=== PATIENT | male | born 1980 | race African-American/Black ===

== ENCOUNTER 2021-06-17 14:44 | Emergency (ER) | payer MEDICARE, MEDICAID, SELFPAY ==
--- NOTE | 2021-06-17 15:10 | PC.NURSE ---
pt presents to triage with list of xray and labs that dr. kwok requests including hemoglobin a1c and cholesterol. informed pt that we can work him up for his abd pain but that we cant draw those tests since he has not been npo and tests would be inaccurate. pt states he only had abd pain when pushed on it. pt contacted pmd back.
== END 2021-06-18 00:47 | disposition left against medical advice (07) ==
PROVIDERS: PCP Emergency Medicine
DX: Z53.21 Procedure and treatment not carried out due to patient leaving prior to being seen by health care provider (principal)
CPT/HCPCS: 99199

== ENCOUNTER 2021-06-18 11:57 | Outpatient (CLI) | payer MEDICARE, MEDICAID, SELFPAY ==
--- NOTE | ~2021-06-18 | XR_ITS ---
EXAMINATION: XR lumbar spine 2-3V EXAM DATE: 06/18/2021 12:38 INDICATION: Low back pain. No known recent injury. TECHNIQUE: Lumber spine frontal, lateral, lateral L5-S1 projections for interpretation. There is no prior study for comparison. FINDINGS: Mild lumbar facet arthropathy. The vertebral bodies are aligned in the AP dimension. Verteb ral body and disc heights are well-maintained. Small lower thoracic endplate osteophytes. Sacrum, sac roiliac joints, sacral arcuate lines are intact. Paraspinal soft tissue is unremarkable. Calcificatio ns in the pelvis are believed to be phleboliths. IMPRESSION: Mild lumbar facet arthropathy. Reviewed, dictated and finalized at location A. [facility]
[2021-06-18 13:35] LABS: Cholesterol 172 mg/dL (0-200); HDL Direct 38 mg/dL; Triglycerides 155 mg/dL (<150)
[2021-06-18 13:46] LABS: LDL Cholesterol Direct 100 mg/dL
[2021-06-18 14:22] LABS: Add Urine Microscopic? NO; Appearance Urine Clear (Clear); Bilirubin Urine Negative (Negative); Blood Urine Negative (Negative); Color Urine Straw (Yellow); Glucose Urine UA Negative (Negative); Ketones Urine Negative (Negative); Leukocyte Esterase Ur Negative LEU/UL (NEGATIVE); Nitrate Urine Negative (Negative); Protein Urine Negative (Negative); Specific Grav Ur 1.006 (1.001-1.035); Urobilinogen Urine Negative mg/dL (<2.0)
[2021-06-18 14:33] LABS: Free T4 Free Thyroxine 1.25 ng/mL (0.78-2.19)
[2021-06-18 14:57] LABS: Creatinine Urine 71.6 mg/dL
[2021-06-18 18:38] LABS: Microalbumin Urine Random < 6.0 mg/L (0-16.7)
[2021-06-18 18:39] LABS: MALB Creatinine Ratio < 8.4 mg/g (0-30)
== END 2021-06-18 11:58 | disposition home or self-care (01) ==
PROVIDERS: PCP Emergency Medicine; Visit Provider Emergency Medicine
DX: M54.50 Low back pain, unspecified (principal); R10.9 Unspecified abdominal pain; I10 Essential (primary) hypertension; M12.88 Other specific arthropathies, not elsewhere classified, other specified site
CPT/HCPCS: 36415; 72100; 80061; 81003; 82043; 84439; 84443

== ENCOUNTER → 2021-06-22 03:51 | Outpatient (CLI) | payer MEDICARE, MEDICAID, SELFPAY ==
[2021-06-22 20:23] LABS: SARS-CoV-2 RNA PCR Negative
== END ==
PROVIDERS: PCP Emergency Medicine; Visit Provider Emergency Medicine
DX: Z20.822 Contact with and (suspected) exposure to COVID-19 (principal)
CPT/HCPCS: C9803; U0003; U0005

== ENCOUNTER 2021-07-02 12:45 | Outpatient (CLI) | payer MEDICARE, MEDICAID, SELFPAY ==
--- NOTE | ~2021-07-02 | XR_ITS ---
XR chest 2V DATE: 07/02/2021 13:11 INDICATION: Covid pneumonia TECHNIQUE: PA and lateral views COMPARISON: None FINDINGS: Normal heart size. No hilar or mediastinal enlargement. No pulmonary infiltrate or consolid ation, pleural effusion or pulmonary vascular congestion or pneumothorax is detected. IMPRESSION: No active cardiopulmonary disease Reviewed, dictated and finalized at location A. [facility] [employer]
== END 2021-07-02 12:46 | disposition home or self-care (01) ==
PROVIDERS: PCP Emergency Medicine; Visit Provider Emergency Medicine
DX: U07.1 COVID-19 (principal); J12.82 Pneumonia due to coronavirus disease 2019
CPT/HCPCS: 71046

== ENCOUNTER 2025-01-15 12:57 | Emergency (ER) | payer MEDICARE, MEDICAID, SELFPAY ==
--- OUTSIDE RECORDS SUMMARY | 2025-01-15 13:05 | XMS_ITS | Encounter Summary ---
Author Organization [facility] Address [address] [place] [address] Care Team Providers Care Supervisor Shearing Name Role Phone , Generic Corneilo NASH Primary Care Provider Unavailable Braxton Klein MD Primary Care Provider [phone] Joe Hunter MD Unavailable Shreya Montanez MD Primary Care Provider [phone] None, Provider Primary Care Provider Unavaila ble Non-Staff, Provider Primary Care Provider Unavai lable None, Provider Primary Care Provider Unavaila ble Encounter Details Date Type Department Care Team (Latest Contact Info) Description 04/18/2018 Abstract [facility] , Generic MD Cornelio Social History Tobacco Use Types Packs/Day Years Used Date Smoking Tobacco: Never Smokeless Tobacco: Never Alcohol Use Standard Drinks/Week Comments No 0 (1 standard drink = 0.6 oz pur e alcohol) Sex and Gender Information Value Date Recorded Sex Assigned at Male 07/09/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 Legal Sex Male 10:18 AM 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 Gender Identity Not on file Sexual Orientation Not on file documented as of this encounter Plan of Treatment Not on file documented as of this encounter Visit Diagnoses Not on filedocumented in this encounter Additional Health Concerns Infection Onset Date Last Indicated Resolved Time COVID-19 Rule Out 02/04/2020 02/04/2020 02/05/2020 11:26 PM CDT COVID-19 Rule Out 09/02/2020 09/02/2020 09/05/2020 2:15 PM CDT COVID-19 Rule Out 05/28/2021 05/28/2021 05/29/2021 12:38 PM 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 COVID-19 Rule Out 04/22/2022 04/22/2022 04/22/2022 2:13 PM 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 COVID-19 Confirmed 04/22/2022 04/22/2022 12:32 AM 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 COVID-19 Rule Out 02/10/2024 02/10/2024 02/10/2024 7:07 PM CDT COVID-19 Confirmed 02/10/2024 02/10/2024 12:32 AM CDT COVID-19 Rule Out 07/09/2024 07/09/2024 07/09/2024 7:37 PM 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 documented as of this encounter Care Teams Supervisor Shearing Relationship Specialty Start Date End Date Saurabh Nash MD PCP - General FAMILY PRACTICE 09/23/17 06/12/18 Braxton Klein MD [address] [facility] [address] [place] [address] PCP - General FAMILY PRACTICE 06/13/18 03/14/21 Shreya Montanez MD [facility]. [facility] [address] [place] [address] PCP - General FAMILY PRACTICE 03/15/21 03/06/22 None, ProviderMD PCP - General 03/07/22 09/19/24 Non-Staff, Provider PCP - General UNKNOWN PHYSICIAN SPECIALTY 09/20/24 11/17/24 None, Provider, PCP - General UNKNOWN PHYSICIAN SPECIALTY 11/18/24 Joe Hunter MD [facility]. [facility] [address] [place] [address] [employer] INTERVENTIONAL CARDIOLOGY 07/24/18 documented as of this encounter
--- OUTSIDE RECORDS SUMMARY | 2025-01-15 13:05 | XMS_ITS | Encounter Summary ---
Author Organization [facility] Address [address] [place] [address] Care Team Providers Care Operations Recruiter Name Role Phone Momo Hameed MD Primary Care Provider [phone] Reason for Referral * Consultation (Routine) - Pending Review Specialty Diagnoses / Procedures Referred By Pete grande Referred To Contact General Surgery Diagnoses Calculus of gallbladder without cholecystitis without obstruction Biliary colic Clara Pelletier PA [address] [place] [id number] Phone: tel: fax: Tyler Diehl MD [facility] [address] [address] Phone: tel: fax: Referral ID Status Reason Start Date Expiration Date Visits Requested Visits Authorized [id number] Pending Review Specialty Services Required 01/13/2025 02/12/2026 1 1 Question Answer Please select the performing region: External Order [171] To provider: TYLER DIEHL [[id number]] # of visits: 1 Reason for Visit * Reason Comments Hiccups Abdominal Pain Encounter Details Date Type Department Care Team ([facility] st Contact Info) Description 01/13/2025 7:36 PM CDT - 01/13/2025 8:57 PM CDT Emergency [facility] Emergency Department [address] [place], [place] [address] Hiccups (Primary Dx); Calculus of gallbladder without cholecystitis without obstruction; Biliary colic Discharge Disposition: Discharge to home or self care Social History Tobacco Use Types Packs/Day Years Used Date Smoking Tobacco: Never [facility] Utilities Answer Date Recorded In the past 12 months has th e electric, gas, oil, or water company threatened to shut off services in your home? No 10/11/2024 Social Connection and Isolat ion Panel [NHANES] Answer Date Recorded In a typical week, how many times do you talk on the phone with family, friends, or neighbors? More than three times a week 10/11/2024 How often do you get togethe r with friends or relatives? More than three times a week 10/11/2024 How often do you attend chur ch or pentecostal services? Never 10/11/2024 Do you belong to any clubs o r organizations such as anabaptist groups, unions, fraternal or athletic groups, or school groups? No 10/11/2024 How often do you attend meet ings of the clubs or organizations you belong to? Never 10/11/2024 Are you , , di vorced, , never , or living with a partner? Never 10/11/2024 AUDIT-C Answer Date Recorded Q1: How often do you have a drink containing alc ohol? Monthly or less 12/04/2024 Q2: How many drinks containi ng alcohol do you have on a typical day when you are drinking? 1 or 2 12/04/2024 Q3: How often do you have si x or more drinks on one occasion? Never 12/04/2024 Overall Financial Resource Strain (CARDIA) Answe r Date Recorded How hard is it for you to pa y for the very basics like food, housing, medical care, and heating? Not very hard 10/11/2024 Hunger Vital Sign Answer Date Recorded Within the past 12 months, y ou worried that your food would run out before you got the money to buy more. Never true 10/12/19 25 Within the past 12 months, t he food you bought just didn't last and you didn't have money to get more. Never true 10/11/2024 PRAPARE - Transportation Answer Date Re corded In the past 12 months, has l ack of transportation kept you from medical appointments or from getting medications? No 06/2024 In the past 12 months, has l ack of transportation kept you from meetings, work, or from getting things needed for daily living? No 10/11/2024 Housing Stability Vital Sign Answer Mikhail e Recorded In the last 12 months, was t here a time when you were not able to pay the mortgage or rent on time? No 10/11/2024 In the past 12 months, how m any times have you moved where you were living? 0 10/11/2024 At any time in the past 12 m [facility], were you homeless or living in a group home (including now)? No 10/11/2024 Personal Safety Answer Date Recorded Have you ever been in or are you currently in a harmful physical or emotional relationship or is someone making you feel afraid or unsafe? 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 Gender Identity Not on file Sexual Orientation Not on file documented as of this encounter Last Filed Vital Signs Vital Sign Reading Time Taken Comments Blood Pressure 160/90 01/13/2025 8:55 PM CDT Pulse 110 01/13/2025 8:55 PM CDT Temperature 37.1 C (98.7 F) 01/13/2025 7:40 PM CDT Respiratory Rate 20 01/13/2025 8:55 PM CDT Oxygen Saturation 97% 01/13/2025 8:55 PM CDT Inhaled Oxygen Concentration - - Weight 116.7 kg (257 lb 4.4 oz) 01/13/2025 3:27 PM CDT Height - - Body Mass Index 39.12 12/14/2024 4:54 PM CDT documented in this encounter Discharge Instructions * Discharge Instructions* Clara Pelletier PA - 01/13/2025 8:03 PM CDT Thank you for allowing us to take care of you at [facility]. Please follow up with your primary care physician or specialist, as soon as possible, and ideally within 7 days. Please take any new medications as prescribed. Please return to the emergency department for worsening of your symptoms or any new problems which may arise. It is mandatory that you follow up, as recommended, with a primary care physician or specialist, per your discharge paperwork.You have received emergency care only at your visit today, an this is nota substitute for ongoing care, further evaluation, or treatment. Therefore, follow-up as directed is not optional, but mandatory. This ensures that any incidental abnormal radiographic and laboratoryfindings are evaluated appropriately. Return immediately for any new symptoms, worsening of symptoms, or persistent symptoms. We are open03/01 and will take care of you. * Attachments The following attachments cannot be sent through Care Everywhere. * Biliary Colic (AfterCare(R) Instructions(ER/ED)) ([place]) * Gallstones (AfterCare(R) Instructions(ER/ED)) ([place]) documented in this encounter Medications at Time of Discharge acetaminophen (TYLENOL) 500 mg tablet Take 1-2 tablets (500-1,000 mg total) by mouth every 6 (six) hours as needed for pain (1 tablet for mild to moderate pain. 2 tablets for severe pain) 30 tablet 06/06/2021 al & mag hydroxide with simethicone-diph enhydramine-lido moira (MAGIC MOUTHWASH) suspension 1-1-1 Swish and swallow 10 mL every 4 (four) hours as needed (hiccups) 200 mL 01/13/2025 aspirin 81 mg enteric coated tabletIndication s:cardiovascular disease Take 1 tablet (81 mg total) by mouth daily 30 tablet 11 12/06/2024 12/06/2025 famotidine (PEPCID) 20 mg tablet Take 1 tablet (20 mg total) by mouth daily 30 tablet 1 12/06/2024 ketorolac (TORADOL) 10 mg tabletIndication s:biliary colic Take 1 tablet (10 mg total) by mouth every 6 (six) hours as needed for pain 20 tablet 01/13/2025 LORazepam (ATIVAN) 0.5 mg tablet Take 1 tablet (0.5 mg total) by mouth 2 (two) times a day as needed for anxiety 20 tablet 11/21/2024 metoclopramide (Reglan) 10 mg tabletIndication s:hiccups, biliary colic nausea Take 1 tablet (10 mg total) by mouth 4 (four) times a day for 14 doses 14 tablet 01/13/2025 01/17/2025 metoprolol XL (TOPROL-XL) 50 mg extended release tablet Take 1 tablet (50 mg total) by mouth daily 30 tablet 12/06/2024 12/06/[address] (PROTONIX) 40 mg EC tablet Take 1 tablet (40 mg total) by mouth daily 30 tablet 11 12/04/2024 12/04/2025 rosuvastatin (CRESTOR) 10 mg tablet Take 1 tablet (10 mg total) by mouth daily 90 tablet 3 12/31/2024 documented as of this encounter Ordered Prescriptions Prescription Sig Dispense Quantity Refills Last Filled Start Date End Date al & mag hydroxide with simethicone-diphen hydramine-lidocain e (MAGIC MOUTHWASH) suspension 1-1-1 Swish and swallow 10 mL every 4 (four) hours as needed (hiccups) 200 mL 01/13/2025 metoclopramide (Reglan) 10 mg tabletIndications: hiccups, biliary colic nausea Take 1 tablet (10 mg total) by mouth 4 (four) times a day for 14 doses 14 tablet 01/13/2025 ketorolac (TORADOL) 10 mg tabletIndications: biliary colic Take 1 tablet (10 mg total) by mouth every 6 (six) hours as needed for pain 20 tablet 01/13/2025 documented in this encounter Discharge Disposition Disposition Code Departure Means Destination Comment s Discharge to home or self care documented in this encounter ED Notes * Clara Pelletier PA - 01/13/2025 8:05 PM CDT CHIEF COMPLAINT: Chief Complaint Patient presents with Hiccups Abdominal Pain HPI 8:06 PM Selene Forman is a 45 y.o. male presenting to the ED c/o hiccups x 2 months, improved with magic mouthwash. Pt would like a refill of this mouthwash. Pt states also having RUQ abdominal pain x 2 days, worse after eating fatty and greasy foods. Pt states no nausea, vomiting, fever, chills. 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; Service: Cardiovascular; Laterality: N/A; UPPER GASTROINTESTINAL ENDOSCOPY X 2 FAMILY HISTORY Family History Problem Relation Age of Onset Heart disease Brother Colon polyps Maternal Grandfather Stomach cancer Maternal Grandfather MEDICATIONS GIVEN IN THE ED Medications metoclopramide (REGLAN) 5 mg/mL injection 10 mg (has no administration in time range) ketorolac (TORADOL) 30 mg/mL injection 30 mg (has no administration in time range) ioversoL (OPTIRAY 350) syringe 100 mL (100 mL intravenous Contrast Given 01/13/25 1887) CURRENT HOME MEDICATIONS Current Facility-Administered Medications: ketorolac (TORADOL) 30 mg/mL injection 30 mg, 30 mg, intravenous, Once, Clara Pelletier PA metoclopramide (REGLAN) 5 mg/mL injection 10 mg, 10 mg, intravenous, Once, Clara Pelletier PA Current Outpatient Medications: acetaminophen (TYLENOL) 500 mg tablet, Take 1-2 tablets (500-1,000 mg total) by mouth every 6 (six)hours as needed for pain (1 tablet for mild to moderate pain. 2 tablets for severe pain), Disp: 30 tablet, Rfl: 0 al & mag hydroxide with ozoymzwbndx-zwluvpkcqulgcrs-goynzuhay (MAGIC MOUTHWASH) suspension 1-1-1, Swish and swallow 10 mL every 4 (four) hours as needed (hiccups), Disp: 200 mL, Rfl: 0 aspirin 81 mg enteric coated tablet, Take 1 tablet (81 mg total) by mouth daily, Disp: 30 tablet, Rfl: 11 famotidine (PEPCID) 20 mg tablet, Take 1 tablet (20 mg total) by mouth daily, Disp: 30 tablet, Rfl:1 ketorolac (TORADOL) 10 mg tablet, Take 1 tablet (10 mg total) by mouth every 6 (six) hours as needed for pain, Disp: 20 tablet, Rfl: 0 LORazepam (ATIVAN) 0.5 mg tablet, Take 1 tablet (0.5 mg total) by mouth 2 (two) times a day as needed for anxiety, Disp: 20 tablet, Rfl: 0 metoclopramide (Reglan) 10 mg tablet, Take 1 tablet (10 mg total) by mouth 4 (four) times a day for14 doses, Disp: 14 tablet, Rfl: 0 metoprolol XL (TOPROL-XL) 50 mg extended release tablet, Take 1 tablet (50 mg total) by mouth daily, Disp: 30 tablet, Rfl: [address] (PROTONIX) 40 mg EC tablet, Take 1 tablet (40 mg total) by mouth daily, Disp: 30 tablet, Rfl: 11 rosuvastatin (CRESTOR) 10 mg tablet, Take 1 tablet (10 mg total) by mouth daily, Disp: 90 tablet, Rfl: 3 ALLERGIES Allergies Allergen Reactions Penicillins Anaphylaxis and Shortness of breath difficulty breathing Clindamycin Rash Omeprazole Nausea only Skin peels SOCIAL HISTORY Social History Tobacco Use Smoking status: Never Smokeless tobacco: Not on file Substance and Sexual Activity Drug use: Not on file Sexual activity: Not on file Alcohol Use: Not At Risk (12/04/2024) AUDIT-C Frequency of Alcohol Consumption: Monthly or less Average Number of Drinks: 1 or 2 Frequency of Binge Drinking: Never PHYSICAL EXAM TRIAGE VITAL SIGNS: ED Triage Vitals Temp Pulse Resp BP SpO2 01/13/25 1527 01/13/25 1527 01/13/25 1527 01/13/25 1527 01/13/25 1527 36.4 ??C (97.5 ??F) 99 19 138/88 98 % Temp src Heart Rate Source Patient Position BP Location FiO2 (%) 01/13/25 1527 01/13/25 1940 01/13/25 19401/13/251939 -- Temporal Pulse Oximetry HOB 30 degrees Left arm Height Height Method Weight Weight Method -- -- 01/13/25 1527 01/13/25 1527 116.7 kg (257 lb 4.4 oz) Standing scale Physical Exam Vitals and nursing note reviewed. Constitutional: Appearance: He is well-developed. He is obese. Comments: Pleasant male, no acute distress HENT: Head: Normocephalic and atraumatic. Eyes: Conjunctiva/sclera: Conjunctivae normal. Cardiovascular: Rate and Rhythm: Normal rate and regular rhythm. Heart sounds: Normal heart sounds. No murmur heard. Pulmonary: Effort: Pulmonary effort is normal. No respiratory distress. Breath sounds: Normal breath sounds. Abdominal: General: Abdomen is protuberant. Palpations: Abdomen is soft. Tenderness: There is no abdominal tenderness. Musculoskeletal: Cervical back: Neck supple. Skin: General: Skin is warm and dry. Neurological: Mental Status: He is alert and oriented to person, place, and time. LABS Labs Reviewed CBC WITH AUTO DIFFERENTIAL - Abnormal Result Value WBC 6.18 Hgb 15.5 Hct 46.3 Plt 272 MPV 8.3 (*) RBC 5.38 MCV 86.1 MCH 28.8 MCHC 33.5 RDW CV 12.7 RDW SD 39.2 NRBC abs 0.00 URINALYSIS AND REFLEX TO MICROSCOPIC AND CULTURE Color, ur Yellow Clarity, ur Clear Specific gravity, ur 1.019 pH, urine 6.0 Protein, ur ql Negative Glucose, ur ql Negative Ketones, ur Negative Bilirubin, ur Negative Blood, ur Negative Urobilinogen, ur <2.0 Nitrite, ur Negative Leukocyte esterase, ur Negative UA reflex comment Value: Reflex conditions for microscopic UA and culture not met. COMPREHENSIVE METABOLIC PANEL Sodium 141 Potassium, pl 4.0 Chloride 104 CO2 24 Anion gap 13 BUN 12 Creatinine 0.90 Glucose 101 Calcium 9.5 Bilirubin, total 0.7 Protein, pl 7.7 Albumin 4.2 Alk phos 121 ALT 29 AST 22 LIPASE Lipase 33 TROPONIN T HIGH-SENSITIVITY SERIES (BASELINE, 2HR, 4HR, 6HR) Trop T hs 10 DIFFERENTIAL AUTO Neutrophil abs 4.10 Imm gran abs 0.02 Lymphocyte abs 1.31 Monocyte abs 0.61 Eosinophil abs 0.12 Basophil abs 0.02 Neutrophil pct 66.4 Imm gran pct 0.3 Lymphocyte pct 21.2 Monocyte pct 9.9 Eosinophil pct 1.9 Basophil pct 0.3 TROPONIN T HIGH-SENSITIVITY 2-HOUR Trop T hs 10 Trop T hs delta 0 Trop T hs interp Insignificant EGFR eGFR >90 RADIOLOGY Impression: 1. No acute intra-abdominal process. 2. Cholelithiasis, new from previous. Gallbladder sonogram may be considered. No findings to indicate acute cholecystitis. Interpreted by radiologist and reviewed by me EKG Pending ED COURSE/MEDICAL DECISION MAKING Differential diagnosis included but not limited to Appendicitis, surgical biliary disease, pancreatitis, SBO, genital torsion, kidney stone, uti. Doubt atypical ACS. Patient's medical records were reviewed. Pt with gallstones. Other labs unremarkable. CT indicative of biliary colic. Will start on toradol,refill reglan and magic mouthwash. Stable for dc home. Will refer to general surgery. Advised low fat diet and avoid triggers. Procedures FINAL IMPRESSION Hiccups Calculus of gallbladder without cholecystitis without obstruction Biliary colic DISPOSITION: Home All findings were discussed with patient. Pt agreeable with plan. Non toxic appearing, vitals stable. Patient stable for discharge home. Given return to ER precautions Close outpatient follow-up with a low threshold to return has been mandated, concerning symptoms have been emphasized in detail, and this patient expresses understanding PATIENT INSTRUCTED TO FOLLOW UP Tyler Diehl MD [address] [place] [address] Call in 1 week DISCHARGE MEDICATIONS Your medication list START taking these medications Instructions Last Dose Given Next Dose Due ketorolac 10 mg tablet Commonly known as: TORADOL Take 1 tablet (10 mg total) by mouth every 6 (six) hours as needed for pain CHANGE how you take these medications Instructions Last Dose Given Next Dose Due al & mag hydroxide with mrghdzetnrm-hhunvzmaokwwzfz-kxofraufs (MAGIC MOUTHWASH) suspension 1-1-1 What changed: when to take this reasons to take this additional instructions Swish and swallow 10 mL every 4 (four) hours as needed (hiccups) metoclopramide 10 mg tablet Commonly known as: Reglan What changed: when to take this Take 1 tablet (10 mg total) by mouth 4 (four) times a day for 14 doses ASK your doctor about these medications Instructions Last Dose Given Next Dose Due acetaminophen 500 mg tablet Commonly known as: TYLENOL Take 1-2 tablets (500-1,000 mg total) by mouth every 6 (six) hours as needed for pain (1 tablet formild to moderate pain. 2 tablets for severe pain) aspirin 81 mg enteric coated tablet Take 1 tablet (81 mg total) by mouth daily famotidine 20 mg tablet Commonly known as: PEPCID Take 1 tablet (20 mg total) by mouth daily LORazepam 0.5 mg tablet Commonly known as: ATIVAN Take 1 tablet (0.5 mg total) by mouth 2 (two) times a day as needed for anxiety metoprolol XL 50 mg extended release tablet Commonly known as: TOPROL-XL Take 1 tablet (50 mg total) by mouth daily pantoprazole DR 40 mg EC tablet Commonly known as: PROTONIX Take 1 tablet (40 mg total) by mouth daily rosuvastatin 10 mg tablet Commonly known as: CRESTOR Take 1 tablet (10 mg total) by mouth daily Where to Get Your Medications These medications were sent to [id number] [id number] Hours: 24-hours al & mag hydroxide with qtbvnqqgofs-dxsgjxpdwetswip-cyxamyrkn (MAGIC MOUTHWASH) suspension 1-1-1 ketorolac 10 mg tablet metoclopramide 10 mg tablet This examination was transcribed using the [employer] voice recognition system without human overlock operator. In an effort to expedite patient care, this report has not been adjusted for typographical, grammatical, and syntax by a trained coroner/medical examiner. Clara Pelletier PA 01/13/252005 * Nanci Gonzalez RN - 01/13/2025 3:28 PM CDT Pt reports has had hiccups for 2 months, started having R upper quadrant abd pain and some neck pain 2 days ago. documented in this encounter Plan of Treatment Scheduled Referrals Name Type Priority Associated Diagnoses Orde r Schedule Ambulatory referral to General Surgery Outpatient Referral Routine Calculus of gallbladder without cholecystitis without obstruction Biliary colic 1 Occurrences starting 01/13/2025 until 01/13/2026 documented as of this encounter Procedures Procedure Name Priority Date/Time Associated Diagnosis Comments TROPONIN T HIGH-SENSITIVITY 2-HOUR Timed 01/13/2025 5:[address] ABDOMEN PELVIS W CONTRAST ED 01/13/2025 4:37 PM CDT URINALYSIS AND REFLEX TO MICROSCOPIC AND CULTURE STAT 01/13/2025 4:06 PM CDT TROPONIN T HIGH-SENSITIVITY SERIES (BASELINE, 2HR, 4HR, 6HR) STAT 01/13/2025 3:34 PM CDT EGFR STAT 01/13/2025 3:34 PM CDT DIFFERENTIAL AUTO STAT 01/13/2025 3:3 4 PM CDT CBC WITH AUTO DIFFERENTIAL STAT 01/13/2025 3:34 PM CDT LIPASE STAT 01/13/2025 3:34 PM CDT COMPREHENSIVE METABOLIC PANEL STAT 01/13/2025 3:34 PM CDT documented in this encounter Results * Troponin T high-sensitivity 2-hour (01/13/2025 5:45 PM CDT) Trop T hs 10 <=22 ng/L Comment: Interpretive Data For further hscTnT resources including the diagnostic algorithm and an aid in interpretation, copy and paste this link: [email or web address].testcatalog.org/show/hsTrop Current Interpretive Data last revised 2020. Testing performed by: [address] [address] Trop T hs delta 0 ng/L [facility] Comment:Testing performed by : [address] [address] Trop T hs interp Insignificant [facility] Comment:Testing performed by : [place] [address], [place]., [address] Blood 01/13/2025 5:45 PM CDT 01/13/2025 5:47 PM CDT us Clara VASQUEZ LAB BLOOD ORDERABLES Final R esult [facility] [address] [facility] Department [place] [address] * CT Abdomen Pelvis W Contrast (01/13/2025 4:37 PM CDT) Anatomical Region Laterality Modality Body N/A Computed Tomogra phy 01/13/2025 5:09 PM CDT Narrative 01/13/2025 5:24 PM CDT EXAM DESCRIPTION: CT ABDOMEN PELVIS W CONTRAST REASON FOR STUDY: Abdominal pain, acute, nonlocalized has had hiccups for 2 months, started having R upper quadrant abd pain and some neck pain 2 days ago. TECHNIQUE: CT scan of the abdomen and pelvis performed with intravenous and without oral contrast using helical scanning technique with dynamic intravenous contrast injection. Reconstructed coronal and sagittal MPR images reviewed. All images stored on PACS. Automated exposure control was used as a dose optimization technique for this examination. CONTRAST TYPE/DOSE: 100mL of IOVERSOL 350 MG IODINE/ML INTRAVENOUS SYRINGE injected via intravenous COMPARISON: Comparison 11/19/2024. FINDINGS: LOWER CHEST: No significant pulmonary abnormalities. No effusion. LIVER: Normal size. Scattered tiny hypodensities, stable and statistically tiny cysts. No identified cystic or solid masses. GALLBLADDER: There are small gallstones in the gallbladder neck. No wall thickening or pericholecystic fluid. BILE DUCTS: No intrahepatic or extrahepatic ductal dilatation. SPLEEN: Normal size. No focal lesions. PANCREAS: No identified cystic or solid masses. No significant calcifications. No adjacent inflammation or peripancreatic fluid collections. Pancreatic duct not dilated. ADRENALS: Normal. KIDNEYS/URINARY TRACT: No identified significant cystic or solid masses. No visualized stones. No hydronephrosis or hydroureter. Symmetric enhancement. Urinary bladder is unremarkable. GI: No dilated bowel loops. No obvious wall thickening. Normal appendix. No significant diverticular disease. PERITONEUM: No ascites or free air. RETROPERITONEUM: No mass or adenopathy. REPRODUCTIVE: No significant abnormality. VASCULATURE: No abdominal aortic aneurysm. MUSCULOSKELETAL: No significant abnormality. OTHER: No other abnormality. IMPRESSION: 1. No acute intra-abdominal process. 2. Cholelithiasis, new from previous. Gallbladder sonogram may be considered. No findings to indicate acute cholecystitis. THIS IS AN ELECTRONICALLY VERIFIED FINAL REPORT 01/13/2025 5:24 PM - Electronically signed by Nasir Duncan M.D. LC: FARSHAD Report ID: [id number] Reading Location: [id number] Procedure Note Deisy Duncan MD - 01/13/2025 EXAM DESCRIPTION: CT ABDOMEN PELVIS W CONTRAST REASON FOR STUDY: Abdominal pain, acute, nonlocalized has had hiccups for 2 months, started having R upper quadrant abd pain and some neck pain 2 days ago. TECHNIQUE: CT scan of the abdomen and pelvis performed with intravenousand without oral contrast using helical scanning technique with dynamic intravenous contrast injection. Reconstructed coronal and sagittal MPRimages reviewed. All images stored on PACS. Automated exposure control was usedas a dose optimization technique for this examination. CONTRAST TYPE/DOSE: 100mL of IOVERSOL 350 MG IODINE/ML INTRAVENOUSSYRINGE injected via intravenous COMPARISON: Comparison 11/19/2024. FINDINGS: LOWER CHEST: No significant pulmonary abnormalities. Noeffusion. LIVER: Normal size. Scattered tiny hypodensities, stable andstatistically tiny cysts. No identified cystic or solid masses. GALLBLADDER: There are small gallstones in the gallbladder neck. Nowall thickening or pericholecystic fluid. BILE DUCTS: No intrahepatic or extrahepatic ductal dilatation. SPLEEN: Normal size. No focal lesions. PANCREAS: No identified cystic or solid masses. No significant calcifications. No adjacent inflammation or peripancreatic fluidcollections. Pancreatic duct not dilated. ADRENALS: Normal. KIDNEYS/URINARY TRACT: No identified significant cystic or solid masses.No visualized stones. No hydronephrosis or hydroureter. Symmetricenhancement. Urinary bladder is unremarkable. GI: No dilated bowel loops. No obvious wall thickening. Normalappendix. No significant diverticular disease. PERITONEUM: No ascites or free air. RETROPERITONEUM: No mass or adenopathy. REPRODUCTIVE: No significant abnormality. VASCULATURE: No abdominal aortic aneurysm. MUSCULOSKELETAL: No significant abnormality. OTHER: No other abnormality. IMPRESSION: 1. No acute intra-abdominal process. 2. Cholelithiasis, new from previous. Gallbladder sonogram may be considered. No findings to indicate acute cholecystitis. THIS IS AN ELECTRONICALLY VERIFIED FINAL REPORT 01/13/2025 5:24 PM - Electronically signed by Nasir Duncan M.D. LC: FARSHAD Report ID: [id number] Reading Location: [place] [address] PROCEDURES Final Resu lt * Urinalysis reflex to microscopic and culture Urine (01/13/2025 4:06 PM CDT) Color, ur Yellow Yellow Comment:Testing performed by : [address] [address] Clarity, ur Clear Clear [facility] Comment:Testing performed by : [address] [address] Specific gravity, ur 1.019 1.003 - 1.030 [facility]RA Comment:Testing performed by : [address] [address] pH, urine 6.0 [facility]RA Comment: Interpretive Data U rine pH is affected by diet, medications, systemic acid-base disturbances, and renal tubular function. pH may affect urinary stone formation. For example, urine pH below 6.0 may help reduce the tendency for calcium phosphate stones and pH greater than 6.0 may reduce the tendency for uric acid stone formation. Source: [employer] Current Interpretive Data was last revised on 2017 Testing performed by: [address] [address] Protein, ur ql Negative Negative [facility]RA Comment:Testing performed by : [address] [address] Glucose, ur ql Negative Negative [facility] MC Comment:Testing performed by : [facility], [address] [place] [address], [place]., [address] Ketones, ur Negative Negative [facility] MC Comment:Testing performed by : [address], [place]., [address] Bilirubin, ur Negative Negative [facility] MC Comment:Testing performed by : [address], [place]., [address] Blood, ur Negative Negative [facility] MC Comment:Testing performed by : [address], [place]., [address] Urobilinogen, ur <2.0 <2.0 mg/dL [facility] MC Comment:Testing performed by : [address], [place]., [address] Nitrite, ur Negative Negative [facility]ERRA Comment:Testing performed by : [address], [place]., [address] Leukocyte esterase, ur Negative Negative [facility]RA Comment:Testing performed by : [address], [place]., [address] UA reflex comment Reflex conditions for microscopic UA and culture not met. [facility]RA Comment:Testing performed by : [address], [place]., [address] Urine 01/13/2025 4:06 PM CDT 01/13/2025 4:08 PM CDT us Clara VASQUEZ LAB MICROBIOLOGY - GENERAL O RDERABLES Final Result [facility] MC [address] [facility] Department of Laboratories [place], [place] [id number] * eGFR (01/13/2025 3:34 PM CDT) eGFR >90 >=60 mL/min/1. 73 m2 Comment: Interpretive Data Reference Interval Normal >/= 90 mL/min/1.73m2 Mildly decreased* 60 - 89 mL/min/1.73m2 Mildly to moderately decreased 45 - 59 mL/min/1.73m2 Moderately to severely decreased 30 - 44 mL/min/1.73m2 Severely decreased 15 - 29 mL/min/1.73m2 Kidney Failure < 15 mL/min/1.73m2 *Relative to young adult level Estimated glomerular filtration rate is determined by the 2020 CKD-EPI equation recommended by the National Kid[employer] (A Unifying Approach to GFR Estimation: Recommendations of the NKF-ASK Task Force on Reassessing the Inclusion of Race in Diagnosing Kidney Disease, JASN 2020). The CKD-EPI equation should not be used for patients with unstable renal function and has not been validated in children and those over 70. Current interpretive data was last reviewed 2021. Testing performed by: [address] [address] Blood 01/13/2025 3:34 PM CDT 01/13/2025 3:39 PM CDT us Clara VASQUEZ LAB BLOOD ORDERABLES Final R esult [facility] Department [place] [address] * Differential, auto (01/13/2025 3:34 PM CDT) Neutrophil abs 4.10 1.50 - 6.50 K/cumm Comment:Testing performed by : [address] [address] Imm gran abs 0.02 0.00 - 0.10 K/cumm CIERRA Comment:Testing performed by : [address] [address] Lymphocyte abs 1.31 0.80 - 3.30 K/cumm [facility]ERRA Comment:Testing performed by : [address] [address] Monocyte abs 0.61 0.20 - 0.80 K/cumm [facility]ERRA Comment:Testing performed by : [address] [address] Eosinophil abs 0.12 0.00 - 0.50 K/cumm CIERRA Comment:Testing performed by : [address] [address] Basophil abs 0.02 0.00 - 0.10 K/cumm [facility]ERRA Comment:Testing performed by : [address] [address] Neutrophil pct 66.4 % [facility]ERRA Comment: Interpretive Data Percent cell count reference ranges are not reported, since discordance with absolute values may lead to misinterpretation of CBC data. Current Interpretive Data was last revised on 2017. Testing performed by: [address] [address] Imm gran pct 0.3 % [facility]ERRA Comment: Interpretive Data Percent cell count reference ranges are not reported, since discordance with absolute values may lead to misinterpretation of CBC data. Current Interpretive Data was last revised on 2017. Testing performed by: [address] [address] Lymphocyte pct 21.2 % [facility] Comment: Interpretive Data Percent cell count reference ranges are not reported, since discordance with absolute values may lead to misinterpretation of CBC data. Current Interpretive Data was last revised on 2017. Testing performed by: [address] [address] Monocyte pct 9.9 % [facility] Comment: Interpretive Data Percent cell count reference ranges are not reported, since discordance with absolute values may lead to misinterpretation of CBC data. Current Interpretive Data was last revised on 2017. Testing performed by: [address] [address] Eosinophil pct 1.9 % [facility] Comment: Interpretive Data Percent cell count reference ranges are not reported, since discordance with absolute values may lead to misinterpretation of CBC data. Current Interpretive Data was last revised on 2017. Testing performed by: [address] [address] Basophil pct 0.3 % [facility] Comment: Interpretive Data Percent cell count reference ranges are not reported, since discordance with absolute values may lead to misinterpretation of CBC data. Current Interpretive Data was last revised on 2017. Testing performed by: [address] [address] Blood 01/13/2025 3:34 PM CDT 01/13/2025 3:39 PM CDT Clara VASQUEZ LAB BLOOD ORDERABLES Final R esult Performing Organization Address [facility] Co de Phone Number CIERRA [address] [place] [address] * Troponin T high-sensitivity series (baseline, 2hr, 4hr, 6hr) (01/13/2025 3:34 PM CDT) Trop T hs 10 <=22 ng/L Comment: Interpretive Data For further hscTnT resources including the diagnostic algorithm and an aid in interpretation, copy and paste this link: [email or web address].testcatalog.org/show/[email or web address] Current Interpretive Data last revised 2020. Testing performed by: [address] [address] Blood 01/13/2025 3:34 PM CDT 01/13/2025 3:39 PM CDT Clara VASQUEZ LAB BLOOD ORDERABLES Final R esult Performing Organization Address [facility] Co de Phone Number KEILA[address] [address] * Lipase (01/13/2025 3:34 PM CDT) Pathologist [facility] Lipase 33 10 - 99 Units/L Comment:Testing performed by : [address] [address] Blood Venous blood specimen / Unknown 01/13/2025 3:34 PM CDT 01/13/2025 3:39 PM CDT Clara VASQUEZ LAB BLOOD ORDERABLES Final R esult Performing Organization Address City/[facility]/ZIP Co de Phone Number KEILA[address] [place] [address] * Comprehensive metabolic panel (01/13/2025 3:34 PM CDT) Sodium 141 135 - 145 mmol/L Comment:Testing performed by : [address] [address] Potassium, pl 4.0 3.3 - 4.9 mmol/L CIERRA Comment:Testing performed by : [address], [place]., [address] Chloride 104 97 - 110 mmol/L [facility]ERRA Comment:Testing performed by : [address], [place]., [address] CO2 24 22 - 32 mmol/L [facility]ERRA Comment:Testing performed by : [address], [place]., [address] Anion gap 13 2 - 15 mmol/L [facility]RA Comment:Testing performed by : [address], [place]., [address] BUN 12 6 - 25 mg/dL CIERRA Comment:Testing performed by : [address] [address] Creatinine 0.90 0.80 - 1.30 mg/dL [facility]ERRA Comment:Testing performed by : [address] [address] Glucose 101 70 - 199 mg/dL [facility]ERRA Comment: Interpretive Data Fasting glucose >/= 126 mg/dl is diagnostic for diabetes. Fasting is defined as no caloric intake for at least 8 hours. Fasting glucose between 100 mg/dl to 125 mg/dl is diagnostic of prediabetes. In a patient with classic symptoms of hyperglycemia or hyperglycemic crisis, a random glucose >/= 200 mg/dl is diagnostic for diabetes. In the absence of unequivocal hyperglycemia, results should be confirmed by repeat testing. The classification and Diagnosis of Diabetes Diabetes Care 2021; 46: S19-S40. Current interpretive data was last revised 2022. Testing performed by: [address] [address] Calcium 9.5 8.5 - 10.3 mg/dL [facility]ERRA Comment:Testing performed by : [address] [address] Bilirubin, total 0.7 0.1 - 1.2 mg/dL [facility] MC Comment:Testing performed by : [address] [address] Protein, pl 7.7 6.5 - 8.5 g/dL [facility] MC Comment:Testing performed by : [address], [place]., [address] Albumin 4.2 3.5 - 5.0 g/dL [facility] MC Comment:Testing performed by : [address] [address] Alk phos 121 40 - 130 Units/L CIERRA Comment:Testing performed by : [address], [place]., [address] ALT 29 7 - 55 Units/L [facility]ERRA Comment:Testing performed by : [address] [address] AST 22 10 - 50 Units/L [facility]ERRA Comment:Testing performed by : [address] [address] Blood 01/13/2025 3:34 PM CDT 01/13/2025 3:39 PM CDT us Clara VASQUEZ LAB BLOOD ORDERABLES Final R esult [facility]RA [address] [facility] Department [place] [address] * (ABNORMAL) CBC with auto differential (01/13/2025 3:34 PM CDT) [facility] WBC 6.18 3.80 - 9.90 K/cumm Comment:Testing performed by : [address] [address] Hgb 15.5 13.0 - 17.5 g/dL [facility] MC Comment:Testing performed by : [address] [address] Hct 46.3 38.9 - 50.3 % [facility] MC Comment:Testing performed by : [address] [address] Plt 272 150 - 400 K/cumm [facility] MC Comment:Testing performed by : [address] [address] MPV 8.3(L) 9.1 - 12.3 fL [facility]ERRA Comment:Testing performed by : [address] [address] RBC 5.38 4.30 - 5.80 M/cumm [facility] MC Comment:Testing performed by : [address] [address] MCV 86.1 81.3 - 96.4 fL [facility]ERRA Comment:Testing performed by : [address] [address] MCH 28.8 27.1 - 33.3 pg [facility]RA Comment:Testing performed by : [address] [address] MCHC 33.5 32.3 - 35.7 g/dL CIERRA Comment:Testing performed by : [address] [address] RDW CV 12.7 11.1 - 14.9 % [facility]ERRA Comment:Testing performed by : [address] [address] RDW SD 39.2 35.7 - 48.1 fL [facility]ERRA Comment:Testing performed by : [address] [address] NRBC abs 0.00 0.00 - 0.01 K/cumm CIERRA Comment:Testing performed by : [address] [address] Blood Venous blood specimen / Unknown 01/13/2025 3:34 PM CDT 01/13/2025 3:39 PM CDT us Clara VASQUEZ LAB BLOOD ORDERABLES Final R esult [facility] MC [address] [facility] Department [place] [address] documented in this encounter Visit Diagnoses Diagnosis Hiccups- Primary Calculus of gallbladder without cholecystitis without obstruction Biliary colic Calculus of gallbladder without mention of cholecystitis or obstruction documented in this encounter Administered Medications Inactive Administered Medications - up to 3 most recent administrations Medication Order MAR Action Action Date Dose Rate Site diphenhydrAMINE (BENADRYL) 50 mg/mL injection 25 mg 25 mg, intravenous, Administer over 2 Minutes, Once, On 01/13/25 at 2043, For 1 dose, Indications: allergic reaction, extrapyramidal disease, Nausea and Vomiting, Urticaria, migraineIndications:allergic reaction,extrapyramidal disease,Nausea and Vomiting,Urticaria,migraine Given 01/13/2025 8:43 PM CDT 25 mg ioversoL (OPTIRAY 350) syringe 100 mL 100 mL, intravenous, Once in imaging, contrast, Starting on Tue01/13/25 at 1637, For 1 dose Contrast Given 01/13/2025 4:37 PM CDT 100 mL ketorolac (TORADOL) 30 mg/mL injection 30 mg 30 mg, intravenous, Once, On 01/13/25 at 2002, For 1 dose, For Adult IV push, administer over 15 seconds Given 01/13/2025 8:27 PM CDT 30 mg metoclopramide (REGLAN) 5 mg/mL injection 10 mg 10 mg, intravenous, Once, On 01/13/25 at 2002, For 1 dose Given 01/13/2025 8:28 PM CDT 10 mg documented in this encounter Discontinued Medications Medication Sig Discontinue Reason Start Date End Da te al & mag hydroxide with simethicone-diphenhydr amine-lidocaine (MAGIC MOUTHWASH) suspension 1-1-1 Swish and swallow 10 mL 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 Therapy completed 11/29/2024 01/13/2025 metoclopramide (REGLAN) 10 mg tabletIndications:Hicc ups Take 1 tablet (10 mg total) by mouth every 6 (six) hours Therapy completed 12/14/2024 01/13/2025 documented as of this encounter Active and Recently Administered Medications Times are shown in CDT. Scheduled Medication Order 01/11/2025 01/12/2025 01/13/2025 diphenhydrAMINE (BENADRYL) 50 mg/mL injection 25 mg (COMPLETED) 25 mg, intravenous, Administer over 2 Minutes, Once, On 01/13/25 at 2042, For 1 dose, Indications: allergic reaction, extrapyramidal disease, Nausea and Vomiting, Urticaria, migraine 2042 (Given - Provid er: Ramo Bravo, ANIYAH) ketorolac (TORADOL) 30 mg/mL injection 30 mg (COMPLETED) 30 mg, intravenous, Once, On 01/13/25 at 2002, For 1 dose, For Adult IV push, administer over 15 seconds 2026 (Given - Provid er: Ramo Bravo RN) metoclopramide (REGLAN) 5 mg/mL injection 10 mg (COMPLETED) 10 mg, intravenous, Once, On 01/13/25 at 2002, For 1 dose 2027 (Given - Provid er: Ramo Bravo RN) PRN Medication Order 01/11/2025 01/12/2025 01/13/2025 ioversoL (OPTIRAY 350) syringe 100 mL (COMPLETED) 100 mL, intravenous, Once in imaging, contrast, Starting on 01/13/25 at 1637, For 1 dose 1637 (Contrast Given - Provider: RT Shannon) documented in this encounter Orders EKG Orders Without Results Count Last Ordered D ate First Ordered Date ECG 12-LEAD 1 01/13/2025 IV Count Last Ordered Date First Orde red Date SALINE LOCK IV 1 01/13/2025 documented in this encounter Care Teams Operations Recruiter Relationship Specialty Start Date End Date Momo Hameed MD [address] [address] PCP - General Family Medicine 12/01/24 documented as of this encounter
--- OUTSIDE RECORDS SUMMARY | 2025-01-15 13:05 | XMS_ITS | Clinical Summary ---
Author Organization [facility] Address [address] [place] [address] Care Team Providers Care Scallop Raker Name Role Phone Joe Hunter MD Unavailable None, Provider Primary Care Provider Unavaila ble Allergies Active Allergy Reactions Criticality Noted Date Comments Clindamycin Rash Low 11/12/2024 Omeprazole Nausea Only 10/01/2019 Skin peels Penicillins Anaphylaxis High 09/23/2017 Medications aspirin EC 81 MG tablet Take 1 tablet (81 mg total) by mouth daily. Active atorvastatin (LIPITOR) 80 MG tablet Take 1 tablet (80 mg total) by mouth nightly at bedtime. Active famotidine (PEPCID) 20 MG tablet Take 1 tablet (20 mg total) by mouth daily. Active isosorbide mononitrate ER (IMDUR) 30 MG 24 hr tablet Take 1 tablet (30 mg total) by mouth daily. Active metoprolol succinate ER (TOPROL-XL) 50 MG 24 hr tablet Take by mouth daily. Active pantoprazole EC (PROTONIX) 40 MG tablet Take 1 tablet (40 mg total) by mouth daily. 30 tablet Active diphenhydramine -maalox-lidocai ne viscous (MAGIC MOUTHWASH) (MAGIC MOUTHWASH) oral suspension Swish & swa 15 mLs every 6 (six) hours as needed for Irritation. swish & spit/swallow 200 mL Active Additional Information Patient not taking.Reported on 12/24/2024 baclofen (LIORESAL) 10 MG tablet Take 1 tablet (10 mg total) by mouth 3 (three) times daily. As needed for hiccups 15 tablet Active chlorproMAZINE (THORAZINE) 10 MG tablet Take 1 tablet (10 mg total) by mouth 3 (three) times daily for 30 days. 90 tablet 5 12/26/19 25 Additional Information Patient not taking.Reported on 12/24/2024 metoclopramide (REGLAN) 10 MG tablet Take 1 tablet (10 mg total) by mouth 4 (four) times daily for 5 days. 20 tablet 5 12/30/19 25 cephALEXin (KEFLEX) 500 MG capsule Take 1 capsule (500 mg total) by mouth 2 (two) times daily for 7 days. 14 capsule 5 01/01/20 25 Active Problems Problem Noted Date Diagnosed Date Post-operative state 02/07/2020 Overview (02/07/2020): Ankle fracture ORIF Status post ORIF of fracture of ankle 02/07/2020 Substernal chest pain 07/25/2018 Abnormal EKG 07/25/2018 Essential hypertension Dyslipidemia Chest pain Hypertension Encounters Date Type Department Care Team Description 12/24/2024 2:46 PM CDT - 12/24/2024 3:22 PM CDT Hospital Encounter [facility] [address] [place] [address] Jenniffer Forrester, HOME HEALTH LVN Sore Throat Discharge Disposition: Home or Self Care (Routine Discharge) 12/24/2024 Travel 12/14/2024 7:19 PM CDT - 12/14/2024 10:01 PM CDT [facility] [place] [address] Everette Cardenas MD,PHD Hiccups Discharge Disposition: Home or Self Care (Routine Discharge) 12/14/2024 Travel 12/11/2024 6:02 PM CDT - 12/11/2024 6:29 PM CDT Hospital Encounter [facility] [address] [place] [address] Marce Carreno PA Hiccups Discharge Disposition: Home or Self Care (Routine Discharge) 12/11/2024 Travel 11/25/2024 6:09 PM CDT - 11/25/2024 6:41 PM CDT Hospital Encounter [facility] [address] [place] [address] Stoney Peng MD Med Refills Discharge Disposition: Home or Self Care (Routine Discharge) 11/25/2024 Travel 11/22/2024 3:39 AM CDT - 11/22/2024 6:48 AM CDT [facility] [place] [address] Everette Cardenas MD,PHD Hiccups Discharge Disposition: Home or Self Care (Routine Discharge) 11/22/2024 Travel 11/18/2024 10:10 PM CDT - 11/18/2024 10:20 PM CDT [facility] [place] [address] Inga Graham PA Hiccups Discharge Disposition: Home or Self Care (Routine Discharge) 11/17/2024 10:37 PM CDT - 11/18/2024 1:13 AM CDT [facility] [place] [address] Zainab Jaramillo FNP Hiccups Discharge Disposition: Home or Self Care (Routine Discharge) 11/17/2024 Travel 11/16/2024 6:47 PM CDT - 11/16/2024 7:11 PM CDT Hospital Encounter [facility] [address] [place] [address] Krystal Martinez DO Hiccups Discharge Disposition: Home or Self Care (Routine Discharge) 11/16/2024 Travel 11/12/2024 6:01 PM CDT - 11/12/2024 6:30 PM CDT Hospital Encounter [facility] [address] [facility] [place] [address] Krystal Martinez DO Rash; Dental Pain (/) Discharge Disposition: Home or Self Care (Routine Discharge) 11/12/2024 Travel 11/02/2024 2:18 PM CDT - 11/02/2024 2:47 PM CDT Hospital Encounter [facility] [address] [place] [address] Krystal Martinez DO Dental Problem Discharge Disposition: Home or Self Care (Routine Discharge) 11/02/2024 Travel from Last 3 Months Family History Medical History Relation Comments Heart Attack Brother Diabetes Father Hypertension Mother Relation Status Comments Brother Alive Father Alive Mother Alive Sister 1 Alive Sister 2 Alive Social History Tobacco Use Types Packs/Day Years Used Date Smoking Tobacco: Never Smokeless Tobacco: Never Tobacco Cessation:Counseling Given: Yes Alcohol Use Standard Drinks/Week Comments Not Currently 1 (1 standard drink = 0.6 oz pur e alcohol) socially 1x/wk AUDIT-C Answer Date Recorded Frequency of Alcohol Consumption 2-3 times a wee k 07/25/2018 Average Number of Drinks Not on file 019 Frequency of Binge Drinking Not on file 07/14 PHQ-2 Answer Date Recorded PHQ-2 Score - If the patient scores above 3, please move on to questions 3-9 0 04/16/2020 Sex and Gender Information Value Date Recorded Sex Assigned at Male 07/09/2024 6:42 PM [employer]AR [employer] Legal 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 Gender Identity Not on file Sexual Orientation Not on file Last Filed Vital Signs Vital Sign Reading Time Taken Comments Blood Pressure 124/75 12/24/2024 2:52 PM CDT Pulse 72 12/24/2024 2:52 PM CDT Temperature 36.9 C (98.4 F) 12/24/2024 2:52 PM CDT Respiratory Rate 18 12/24/2024 2:52 PM CDT Oxygen Saturation 97% 12/24/2024 2:52 PM CDT Inhaled Oxygen Concentration - - Weight 118.4 kg (261 lb) 12/24/2024 2:59 PM CDT Height 172.7 cm (5' 8) 12/24/2024 2:59 PM CDT Body Mass Index 39.68 12/24/2024 2:59 PM CDT Plan of Treatment Health Maintenance Due Date Last Done Comments Annual Physical 1985 Hepatitis C 01/08/2000 Hepatitis B Vaccines (1 of 3 - 19+ 3-dose series) 2001 HPV Vaccines (1 - 3-dose SCDM series) 2009 COVID-19 Vaccine (3 - 2023- season) 2024 05/05/2021, 02/23/2021 DTaP, Tdap and Td Vaccines (2 - Td or Tdap) 08/01/2030 08/01/2020, 12/06/1986, 06/26/1986, Additional history exists Meningococcal B Vaccine Aged Out No l onger eligible based on patient's age to complete this topic Meningococcal Vaccine Aged Out No rowena adwoa eligible based on patient's age to complete this topic Pneumococcal Vaccine: Pediatrics (0 to 5 Years) and At-Risk Patients (6 to 49 Years) Aged Out No longer eligible based on patient's age to complete this topic RSV Immunizations Under 20 Months Aged Out No longer eligible based on patient's age to complete this topic Medical Devices Implanted Type Area Director Specialty Device Identifier Shelf Expiration Date Model / Serial / Lot Locking Third Tubular Plate-7hole Implanted:Qty: 1 on 02/07/2020 by Tyler Edward MD at [facility] Plate Right: Ankle [employer] [id number]-0 7 / 3..5 Cortical Screw-20mm Implanted:Qty: 1 on 02/07/2020 by Tyler Edward MD at [facility] Screw Right: Ankle [employer] AR-[id number] / / 3.5 Cortical Screw-14mm Implanted:Qty: 3 on 02/07/2020 by Tyler Edward MD at [facility] Screw Right: Ankle [employer] AR-[id number] / / 4.0 Cancellous 14mm Implanted:Qty: 1 on 02/07/2020 by Tyler Edward [facility] Screw Right: Ankle [employer] AR-[id number] / / 3.5 Cortical Screw-16mm Implanted:Qty: 1 on 02/07/2020 by Tyler Edward MD at [facility] Screw Right: Ankle [employer] AR-8835-16 / / System Fixation Tightrope Xp Stainless Steel Syndesmosis Rep - [id number] Implanted:Qty: 1 on 02/07/2020 by Tyler Edward MD at [facility] Right: Ankle [employer] [id number] 09/10/2024 [id number] / / [id number] Procedures Procedure Name Priority Date/Time Associated Diagnosis Comments STREP A RAPID STAT 12/24/2024 2:53 PM CDT XR CHEST PA+LAT STAT 11/22/2024 5:09 AM CDT XR CHEST PORTABLE STAT 11/17/2024 11: 04 PM CDT ECG 12-LEAD Routine 11/17/2024 10:40 PM CDT TROPONIN, QUANT STAT 11/17/2024 10:27 PM CDT COMPREHENSIVE METABOLIC PANEL STAT 11/17/2024 10:27 PM CDT CBC W/DIFF AUTOMATED STAT 11/17/2024 10:27 PM CDT from Last 3 Months Results * (ABNORMAL) STREP A RAPID (12/24/2024 2:53 PM CDT) SPECIMEN TYPE THROAT 12/24/2024 2:53 PM CDT [facility] RAPID STREP TEST POSITIVE(A ) NEGATIVE 12/24/2024 3:[address] [facility] STRUCTURE OF ANTERIOR PORTION OF NECK / Unknown 12/24/2024 2:53 PM CDT us Jenniffer Forrester HOME HEALTH LVN MICROBIOLOGY - GENERAL O RDERABLES Final Result [facility] [address] [facility] [place] [address], [place] * XR CHEST PA+LAT (11/22/2024 5:09 AM CDT) Anatomical Region Laterality Modality Chest Radiographic Ashleigh ging 11/22/2024 5:09 AM CDT Impressions 11/22/2024 5:11 AM CDT IMPRESSION: No acute findings. Referred By: Interpreted By: Chris Charlton DO, 11/22/2024 5:09 AM Narrative 11/22/2024 5:11 AM CDT [address] [address] EXAMINATION: X-ray chest HISTORY: Unrelenting hiccups. COMPARISON: Chest x-ray 11/17/2024. TECHNIQUE: PA and lateral view chest. FINDINGS: The heart appears normally sized. No mediastinal shift. No visible pneumonia, pleural effusion, or pneumothorax. There is atherosclerotic calcification of the aorta. No visible acute findings. Procedure Note Chris Charlton DO - 11/22/2024 [facility] [address] [place], [place] [address] EXAMINATION: X-ray chest HISTORY: Unrelenting hiccups. COMPARISON: Chest x-ray 11/17/2024. TECHNIQUE: PA and lateral view chest. FINDINGS: The heart appears normally sized. No mediastinal shift. No visiblepneumonia, pleural effusion, or pneumothorax. There is atheroscleroticcalcification of the aorta. No visible acute findings. IMPRESSION: No acute findings. Referred By: Interpreted By: Chris Charlton DO, 11/22/2024 5:09 AM us Everette Cardenas MD,PHD GENERAL IMAGING Final Resu lt * XR CHEST PORTABLE (11/17/2024 11:04 PM CDT) Anatomical Region Laterality Modality Chest Radiographic Ashleigh ging 11/17/2024 11:1 2 PM CDT Impressions 11/17/2024 11:13 PM CDT IMPRESSION: No acute findings. Referred By: Interpreted By: Toy Smith MD, 11/17/2024 11:12 PM Narrative 11/17/2024 11:13 PM CDT [place] [address] Examination: XR CHEST PORTABLE Exam time: 11/17/2024 10:43 PM Clinical history: CC of hiccups for 2 days. Pt states he has this happen before and some kind of magic something worked to stop them before. Pt denies pain in triage. Comparison: 03/07/2022 Technique: One frontal view of the chest. Findings: Elevated right hemidiaphragm compared to the left hemidiaphragm which is stable from 2021. The cardiac silhouette, mediastinal contours, and pulmonary vessels appear normal. The lungs are clear. No pneumothorax. No consolidations or effusions are seen. No acute fracture. Procedure Note Toy Smith MD - 11/17/[address] [address] Examination: XR CHEST PORTABLE Exam time: 11/17/2024 10:43 PM Clinical history: CC of hiccups for 2 days. Pt states he has this happenbefore and some kind of magic something worked to stop them before. Ptdenies pain in triage. Comparison: 03/07/2022 Technique: One frontal view of the chest. Findings: Elevated right hemidiaphragm compared to the left hemidiaphragm which isstable from 2021. The cardiac silhouette, mediastinal contours, andpulmonary vessels appear normal. The lungs are clear. No pneumothorax. Noconsolidations or effusions are seen. No acute fracture. IMPRESSION: No acute findings. 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1980 Requested By: ZAINAB JARAMILLO Order Number: [id number] Reading MD: Sarah Odonnell Measurements Intervals [place] Rate: 75 P: 44 NC: 160 QRS: 10 QRSD: 84 T: 31 QT: 371 QTc: 416 Interpretive Statements SINUS RHYTHM Compared to ECG 03/15/2021 17:53:08 No significant changes Procedure Note Sarah Odonnell MD - 11/18/[address] [place] Test Date: 2024-11-17 Pat Name: DOROTHY FORMAN Department: 41 Room: [facility]1 Gender: Male 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1980 Requested By: ZAINAB JARAMILLO Order Number: [id number] Reading MD: Sarah Odonnell Measurements Intervals [place] Rate: 75 P: 44 NC: 160 QRS: 10 QRSD: 84 T: 31 QT: 371 QTc: 416 Interpretive Statements SINUS RHYTHM Compared to ECG 03/15/2021 17:53:08 No significant changes us Zainab Jaramillo HOME HEALTH LVN ECG ORDERABLES Final Resul t [facility] (JOSSE[facility]) RAD * (ABNORMAL) COMPREHENSIVE METABOLIC PANEL (11/17/2024 10:27 PM CDT) GLUCOSE 108(H) 70 - 99 MG/DL 11/17/2024 11:39 PM CDT [facility] BUN 11 7 - 18 MG/DL 11/17/2024 11:39 PM CDT [facility] CREATININE S/P/B 1.06 0.7 - 1.3 MG/DL 11/17/2024 11:39 PM CDT [facility] SODIUM S/P/B 134(L) 136 - 145 MMOL/L 11/17/2024 11:39 PM CDT [facility] POTASSIUM S/P/B 5.1 3.5 - 5.1 MMOL/L 11/17/2024 11:39 PM CDT [facility] Comment:SLIGHT HEMOLYSIS, RE SULT MAY BE AFFECTED. CHLORIDE S/P/B 108 97 - 115 MMOL/L 11/17/2024 11:39 PM CDT [facility] CO2 21.7 21 - 32 MMOL/L 11/17/2024 11:39 PM CDT [facility] CALCIUM S/P/B 9.4 8.5 - 10.1 MG/DL 11/17/2024 11:39 PM CDT [facility] BILIRUBIN TOTAL S/P/B 0.7 0.2 - 1.2 MG/DL 11/17/2024 11:39 PM T [facility] Comment: THIS ASSAY IS NOT RECOMMENDED FOR PATIENTS UNDERGOING TREATMENT WITH ELTROMBOPAG DUE TO THE POTENTIAL FOR FALSELY ELEVATED RESULTS. TOTAL PROTEIN S/P/B 7.5 6.4 - 8.2 G/DL 11/17/2024 11:39 PM [facility] ALBUMIN S/P/B 3.7 3.4 - 5.0 G/DL 11/17/2024 11:39 PM [facility] AST 62(H) 15 - 37 U/L 11/17/2024 11:39 PM [facility] Comment:SLIGHT HEMOLYSIS, RE SULT MAY BE AFFECTED. ALT 90(H) 16 - 60 U/L 11/17/2024 11:39 PM [facility] ALKALINE PHOSPHATASE S/P/B 82 50 - 136 U/L 11/17/2024 11:39 PM [facility] ANION GAP 4.3 2 - 10 MMOL/L 11/17/2024 11:39 PM [facility] BUN CREATININE RATIO 10.4 6 - 26 11/17/2024 11:39 PM [facility] A/G RATIO 1.0 1.0 - 2.0 RATIO 11/17/2024 11:39 PM [facility] GFR ESTIMATE 90(L) >90 ML/MIN/1.7 3 M2 11/17/2024 11:39 PM [facility] Comment: NOTE: eGFR is not calculated for patients <18 years of age or gender unknown. This is an estimated GFR calculation using the new CKD EPI creatinine equation without race and so does not require a correction factor for race. This estimated GFR should not be used for calculating drug doses. 11/17/2024 10:2 7 PM CDT Zainab Jaramillo [facility] LABORATORY Final Resul t [facility] [address] [place] [address], [place] [phone] * (ABNORMAL) CBC W/DIFF AUTOMATED (11/17/2024 10:27 PM CDT) WBC 4.75 4.5 - 11.0 x10'3/uL 11/17/2024 11:16 PM CDT [facility] RBC 5.49 4.70 - 6.10 x10'6/uL 11/17/2024 11:16 PM CDT [facility] HGB 16.1 14.0 - 18.0 G/DL 11/17/2024 11:16 PM CDT [facility] HCT 49.0 43.0 - 54.0 % 11/17/2024 11:16 PM CDT [facility] MCV 89.3 80.0 - 94.0 FL 11/17/2024 11:16 PM CDT [facility] MCH 29.3 27.0 - 31.0 PG 11/17/2024 11:16 PM CDT [facility] MCHC 32.9 32.0 - 36.0 G/DL 11/17/2024 11:16 PM CDT [facility] RDW 12.7 11.5 - 14.5 % 11/17/2024 11:16 PM CDT [facility] PLT 257 130 - 400 x10'3/uL 11/17/2024 11:16 PM CDT [facility] MPV 8.7(L) 9.3 - 12.2 FL 11/17/2024 11:16 PM CDT [facility] DIFFERENTIAL TYPE AUTOMATED DIFFERENTIAL 11/17/2024 11:16 PM CDT [facility] NEUTROPHILS % 52.7 % 11/17/2024 11:16 PM CDT [facility] LYMPHOCYTES % 32.6 % 11/17/2024 11:16 PM CDT [facility] MONOCYTES % 9.3 % 11/17/2024 11:16 PM CDT [facility] EOSINOPHILS 4.6 % 11/17/2024 11:16 PM CDT [facility] BASOPHILS 0.6 % 11/17/2024 11:16 PM CDT [facility] IMMATURE GRANS % 0.2 % 11/18/19 11:16 PM CDT [facility] ABS. NEUTROPHILS 2.50 1.80 - 7.70 x10'3/uL 11/17/2024 11:16 PM CDT [facility] ABS. LYMPHOCYTES 1.55 1.00 - 4.80 x10'3/uL 11/17/2024 11:16 PM CDT [facility] ABS. MONOCYTES 0.44 0.30 - 0.82 x10'3/uL 11/17/2024 11:16 PM CDT [facility] ABS. EOSINOPHILS 0.22 0.04 - 0.54 x10'3/uL 11/17/2024 11:16 PM CDT [facility] ABS. BASOPHILS 0.03 0.01 - 0.08 x10'3/uL 11/17/2024 11:16 PM CDT [facility] ABS. IMMATURE GRANULOCYTES 0.01 0.00 - 0.49 x10'3/uL 11/17/2024 11:16 PM CDT [facility] 11/17/2024 10:2 7 PM CDT Zainab Jaramillo [facility] Final Resul t [facility] [address] [place] [address], [place] [phone] * TROPONIN, QUANT (11/17/2024 10:27 PM CDT) TROPONIN I HIGH SENSITIVITY 22 <79 ng/L 11/17/2024 11:39 PM CDT [facility] Comment: HIGH DOSES OF BIOTIN, TROPONIN-SPECIFIC AUTOANTIBODIES, AND ANTIBODY THERAPY CONTAINING HAMA MAY INTERFERE WITH THIS TEST RESULT. CORRELATION TO CLINICAL HISTORY AND PRESENTATION RECOMMENDED. 11/17/2024 10:2 7 PM CDT Zainab Jaramillo [facility] Final Resul t Performing Organization Address City/[facility]/ZIP Co de Phone Number [facility] [address] [place] [address], [place] [phone] from Last 3 Months Insurance MEDICAID MEDICAID Member Subscriber Plan / Payer (Ef fective 2022-Present) Name:Dorothy Forman Relation to Subscriber:Self Name:Dorothy Forman Payer ID:Not on file Group ID:Not on file Type:Not on file Address: [place] [id number] DEPT OF [address] Advance Directives Documents on File Type Date Recorded Patient Control Supervisor Expl anation Legal Documents 05/13/2022 9:24 AM COMPLET ED ATT REQUEST FOR (JOSSELINE) BILLING Care Teams Scallop Raker Relationship Specialty Start Date End Date None, Provider, PCP - General UNKNOWN PHYSICIAN SPECIALTY 11/18/24 Joe Hunter MD [facility] [address] [place] [address] Mitesh Paper Cup Handle Machine Operator INTERVENTIONAL CARDIOLOGY 07/24/18
--- OUTSIDE RECORDS SUMMARY | 2025-01-15 13:05 | XMS_ITS | Encounter Summary ---
Author Organization [facility] Healthcare Address [address] [place] [address] Care Team Providers Care Die Casting Machine Maintainer Name Role Phone Momo Hameed MD Primary Care Provider [phone] Encounter Details Date Type Department Care Team (Latest Contact Info) Description 12/06/2024 Results Follow-Up [facility] Gastroenterology at [address] [place] [address] Raghavendra Coronado MD [address] [place] [address] [address] [place], [place] [id number] Surgical pathology Social History Tobacco Use Types Packs/Day Years Used Date Smoking Tobacco: Never [facility] [employer] Answer Date Recorded In the past 12 months has e electric, gas, oil, or water company [...] often do you attend chur ch or tenriism services? Never 10/11/2024 Do you belong to any clubs o r organizations such as lutheran groups, unions, fraternal or athletic groups, or [...] any time in the past 12 m [facility], were you homeless or living in a halfway (including now)? No 10/11/2024 Personal Safety Answer Date Recorded Have you ever been in or are you currently in a harmful physical or emotional relationship or is someone making you feel afraid or unsafe? 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
--- OUTSIDE RECORDS SUMMARY | 2025-01-15 13:05 | XMS_ITS | Referral Summary ---
Author Organization [facility] Address [address] [place] [address] Care Team Providers Care Imaging Specialist Name Role Phone Momo Hameed MD Primary Care Provider [phone] Encounters Date Type Department Care Team Description 01/14/20 7:36 PM CDT - 01/14/20 25 8:57 PM CDT Emergency [facility] Emergency Department [address] [place] [id number] Hiccups (Primary Dx); Calculus of gallbladder without cholecystitis without obstruction; Biliary colic Discharge Disposition: Discharge to home or self care 01/04/20 25 Telephone [facility] Gastroenterology at [address] [place] [phone] Cynthia Martinez NP 12/27/19 25 Telephone [facility] Medical [facility] Cardiology [address] [place] [address] [address] [place] [phone] Edgardo Beth MD 12/18/19 25 Documentation [facility] Gastroenterology at [address] [place] [phone] Clara Ivy DNP Hiccups 12/18/19 25 Telephone [facility] Gastroenterology at [address] [place] [phone] Cynthia Martinez NP 12/15/19 25 4:49 PM CDT - 12/15/19 25 7:37 PM CDT Emergency [facility] Emergency Department [address] [place] [phone] Medication refill (Primary Dx) Discharge Disposition: Discharge to home or self care 12/14/19 5:39 PM CDT - 12/14/19 5:42 PM CDT Emergency [facility] Emergency Department [address] [place] [address] Discharge Disposition: Left without being seen 12/07/19 Results Follow-Up [facility] Gastroenterology at [address] [phone] Raghavendra Coronado MD Surgical pathology 12/07/19 2:45 PM CDT Office Visit [facility] Cardiology [address] [place] [phone] Edgardo Beth MD NSTEMI (non-ST elevated myocardial infarction) (HCC) (Primary Dx) 12/05/19 12:15 PM CDT Anesthesia Event [facility] [address] [place] [phone] Moreno Alejandra MD 12/05/19 12:00 PM CDT - 12/05/19 25 12:30 PM CDT Surgery [facility] [address] [place] [address] Raghavendra Coronado MD ESOPHAGOGASTRODUODENOSCOPY BALLOON DILATION <30MM 12/05/19 10:38 AM CDT - 12/05/19 25 1:20 PM CDT Hospital Encounter [facility] [address] [place] [address] Raghavendra Coronado MD Hiccups; Dysphagia, unspecified type Discharge Disposition: Discharge to home or self care 12/04/19 Orders Only [facility] Gastroenterology at [address] [phone] Raghavendra Coronado MD Hiccups (Primary Dx); Dysphagia, unspecified type 12/02/19 25 10:02 AM CDT - 12/02/19 25 12:53 PM CDT Emergency [facility] Emergency Department [address] [place] [address] Brandon Bradley MD Syncope, unspecified syncope type (Primary Dx) Discharge Disposition: Discharge to home or self care 12/01/19 Telephone [facility] Cardiology [address] [facility] [address] [place] [phone] Edgardo Beth MD Cardiac Clearance 11/30/19 6:34 PM CDT - 11/30/19 8:21 PM CDT Emergency [facility] Emergency Department [address] [place] [phone] Aj Restrepo Jr., MD Intractable hiccups (Primary Dx); Dysphagia, unspecified type; Gastroesophageal reflux disease, unspecified whether esophagitis present Discharge Disposition: Discharge to home or self care 11/30/19 Telephone [facility] Gastroenterology at [address] [phone] Moshe Swift 11/23/19 2:46 AM CDT - 11/23/19 3:54 AM CDT [facility] Emergency Department [address] [place] [phone] Ligia Woods MD Intractable hiccups (Primary Dx) Discharge Disposition: Discharge to home or self care 11/23/19 10:00 AM CDT Office Visit [facility] Gastroenterology at [address] [phone] Cynthia Martinez NP Hiccups (Primary Dx); Dysphagia, unspecified type 11/21/19 9:22 PM CDT - 11/22/19 12:33 AM CDT Emergency [facility] Emergency Department [address] [place] [address] Edin Moncada DO Anxiety (Primary Dx) Discharge Disposition: Discharge to home or self care 11/20/19 9:38 PM CDT - 11/20/19 11:28 PM CDT Emergency [facility] Emergency Department [address] [place] [address] Aj Restrepo Jr., MD Hiccups (Primary Dx); Gastroesophageal reflux disease with esophagitis without hemorrhage; Esophagitis Discharge Disposition: Discharge to home or self care 11/20/19 Telephone [facility] Gastroenterology at [address] [place] [address] Raghavendra Coronado MD 11/20/19 1:46 AM CDT - 11/20/19 7:17 AM T [facility] Emergency Department [address] [place] [address] Aj Restrepo Jr., MD Intractable hiccups (Primary Dx); Gastroesophageal reflux disease, unspecified whether esophagitis present Discharge Disposition: Discharge to home or self care 11/18/19 7:12 PM CDT - 11/18/19 8:09 PM CDT Emergency [facility] Emergency Department [address] [place] [address] Sorin Parkinson MD Chronic hiccups (Primary Dx) Discharge Disposition: Discharge to home or self care 11/17/19 10:48 PM CDT - 11/18/19 12:22 AM T [facility] Emergency Department [address] [place] [address] Hiccups (Primary Dx) Discharge Disposition: Discharge to home or self care 10/17/19 Telephone [facility] Cardiology [address] [place] [phone] Edgardo Beth MD from Last 3 Months Allergies Active Allergy Reactions Criticality Noted Date Comments Clindamycin Rash Medium 11/12/2024 Omeprazole Nausea only Low 10/01/2019 Skin peels Penicillins Anaphylaxis,Shortnes s of breath High 09/23/2017 difficulty breathing Medications acetaminophen (TYLENOL) 500 mg tablet Take 1-2 tablets (500-1,000 mg total) by mouth every 6 (six) hours as needed for pain (1 tablet for mild to moderate pain. 2 tablets for severe pain) 30 tablet 1 Active LORazepam (ATIVAN) 0.5 mg tablet Take 1 tablet (0.5 mg total) by mouth 2 (two) times a day as needed for anxiety 20 tablet [address] (PROTONIX) 40 mg EC tablet Take 1 tablet (40 mg total) by mouth daily 30 tablet 11 5 12/05/19 26 Active famotidine (PEPCID) 20 mg tablet Take 1 tablet (20 mg total) by mouth daily 30 tablet 1 5 Active aspirin 81 mg enteric coated tabletIndicati ons:cardiovasc ular disease Take 1 tablet (81 mg total) by mouth daily 30 tablet 11 5 12/07/19 26 Active metoprolol XL (TOPROL-XL) 50 mg extended release tablet Take 1 tablet (50 mg total) by mouth daily 30 tablet 5 12/07/19 26 Active rosuvastatin (CRESTOR) 10 mg tablet Take 1 tablet (10 mg total) by mouth daily 90 tablet 3 5 Active ketorolac (TORADOL) 10 mg tabletIndicati ons:biliary colic Take 1 tablet (10 mg total) by mouth every 6 (six) hours as needed for pain 20 tablet 5 Active metoclopramide (Reglan) 10 mg tabletIndicati ons:hiccups, biliary colic nausea Take 1 tablet (10 mg total) by mouth 4 (four) times a day for 14 doses 14 tablet 5 01/18/20 25 Active al & mag hydroxide with simethicone-di phenhydramine- lidocaine (MAGIC MOUTHWASH) suspension 1-1-1 Swish and swallow 10 mL every 4 (four) hours as needed (hiccups) 200 mL 5 Active al & mag hydroxide with simethicone-di phenhydramine- lidocaine (MAGIC MOUTHWASH) suspension 1-1-1 Swish and swallow 10 mL every 6 (six) 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 480 mL 5 01/14/20 25 Discontin ued(Thera py completed ) atorvastatin (LIPITOR) 80 mg tabletIndicati ons:myocardial infarction prevention Take 1 tablet (80 mg total) by mouth nightly 30 tablet 5 12/29/19 25 Discontin ued(Alter adrian therapy) metoclopramide (REGLAN) 10 mg tabletIndicati ons:Hiccups Take 1 tablet (10 mg total) by mouth every 6 (six) hours 20 tablet 5 01/14/20 25 Discontin ued(Thera py completed ) rosuvastatin (CRESTOR) 10 mg tablet Take 1 tablet (10 mg total) by mouth daily 12/29/19 25 Discontin ued(Reord er) rosuvastatin (CRESTOR) 10 mg tablet Take 1 tablet (10 mg total) by mouth daily 90 tablet 1 5 01/01/20 25 Discontin ued(Reord er) Active Problems Problem Noted Date Diagnosed Date Hiccups 11/22/2024 Assessment & Plan (11/22/2024 12:26 PM CDT): Reports that he has acute complaints of hiccuping for the last 2 weeks. He has presented to the ED roughly 8 times in the last 7 days regarding these complaints. Imaging was completed that was unremarkable. Was given Ativan and complaints seemed to resolve. Does report his he is having minor complaints of dysphagia. Previous EGD [place] [address] Alvarez showed acute esophagitis. He does admit that he is on a current PPI as well as famotidine and has minimal complaints of heartburn. No reports of nausea, vomiting. Reports that hiccups do not occur when he is sleeping or lying on his stomach. -EGD to be scheduled at this time we will need cardiac clearance -supragastric belching diaphragmatic breathing exercises recommended -Handout given and reviewed at this time -Recommended continuing taking his pantoprazole in the a.m. in his famotidine at nighttime. -Possible esophageal manometry study Dysphagia 11/22/2024 Assessment & Plan (11/22/2024 12:28 PM CDT): Reports that he is having mild complaints of dysphagia. Currently on a daily PPI and states that food can occasionally get stuck roughly around his jugular notch. Previous EGD in 2019 did show acute esophagitis. -EGD scheduled with possible dilation NSTEMI (non-ST elevated myocardial infarction) 0 10/10/2024 Right carpal tunnel syndrome 05/23/2019 Left carpal tunnel syndrome 10/09/2018 Social History Tobacco Use Types Packs/Day Years Used Date Smoking Tobacco: Never [facility] Utilities Answer Date Recorded In the past [...] often do you attend chur ch or restorationist services? Never 10/11/2024 Do you belong to any clubs o r organizations such as moravian groups, unions, fraternal or athletic groups, or [...] any time in the past 12 m [facility], were you homeless or living in a long term (including now)? No 10/11/2024 Personal Safety Answer Date Recorded Have you ever been in or are you currently in a harmful physical or emotional relationship or is someone making you feel afraid or unsafe? 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 Gender Identity Not on file Sexual Orientation [...] 4.4 oz) 01/13/2025 3:27 PM CDT Height 172.7 cm (5' 8) 12/14/2024 4:54 PM CDT Body Mass Index 39.12 12/14/2024 4:54 PM CDT Plan of Treatment Not on file Medical Devices Implanted Type Area Test Case Developer Device Identifier Shelf Expiration Date Model / Serial / Lot Plate Plate Right: Leg Procedures Procedure Name Priority Date/Time Associated Diagnosis Comments TROPONIN T HIGH-SENSITIVITY 2-HOUR Timed 01/13/2025 5:[address] ABDOMEN PELVIS W CONTRAST ED 08/2024 4:37 PM CDT URINALYSIS AND REFLEX TO MICROSCOPIC AND CULTURE STAT 01/13/2025 4:06 PM CDT EGFR STAT 01/13/2025 3:34 PM CDT DIFFERENTIAL AUTO STAT 01/13/2025 3:34 PM CDT TROPONIN T HIGH-SENSITIVITY SERIES (BASELINE, 2HR, 4HR, 6HR) STAT 01/13/2025 3:34 PM CDT LIPASE STAT 01/13/2025 3:34 PM CDT COMPREHENSIVE METABOLIC PANEL STAT 3:34 PM CDT CBC WITH AUTO DIFFERENTIAL STAT 01/13 3:34 PM CDT SURGICAL PATHOLOGY Routine 12/04/2024 12:26 PM CDT Hiccups Dysphagia, unspecified type EGD 12/04/2024 12:15 PM CDT ENDO ADD ON ESOPHAGOGASTRODUODENOSCOPY BIOPSY 12/04/2024 12:08 PM CDT Hiccups Dysphagia, unspecified type ESOPHAGOGASTRODUODENOSCOPY BALLOON DILATION <30MM 12/04/2024 12:08 PM CDT Hiccups Dysphagia, unspecified type TROPONIN T HIGH-SENSITIVITY 2-HOUR Timed 12/01/2024 11:41 AM CDT XR CHEST 1 VIEW ED 12/01/2024 10:16 AM CDT EGFR STAT 12/01/2024 10:00 AM CDT DIFFERENTIAL AUTO STAT 12/01/2024 10:00 AM CDT TROPONIN T HIGH-SENSITIVITY SERIES (BASELINE, 2HR, 4HR, 6HR) STAT 12/01/2024 10:00 AM CDT COMPREHENSIVE METABOLIC PANEL STAT 10:00 AM CDT CBC WITH AUTO DIFFERENTIAL STAT 12/01 10:00 AM CDT ECG 12-LEAD STAT 12/01/2024 9:48 AM CDT EGFR STAT 11/29/2024 5:50 PM CDT DIFFERENTIAL AUTO STAT 11/29/2024 5:50 PM CDT COMPREHENSIVE METABOLIC PANEL STAT 5:50 PM CDT CBC WITH AUTO DIFFERENTIAL STAT 11/29 5:50 PM CDT ECG 12-LEAD STAT 11/22/2024 1:56 AM CDT TROPONIN T HIGH-SENSITIVITY 2-HOUR Timed 11/19/2024 4:[address] SOFT TISSUE NECK W CONTRAST ED 0 11/19/2024 2:[address] CHEST ABDOMEN PELVIS WO CONTRAST ED 11/19/2024 2:53 AM CDT D-DIMER, QUANTITATIVE STAT 11/19/2024 2:08 AM CDT XR CHEST 1 VIEW ED 11/19/2024 1:55 AM CDT EGFR STAT 11/19/2024 1:42 AM CDT DIFFERENTIAL AUTO STAT 11/19/2024 1:42 AM CDT MAGNESIUM STAT 11/19/2024 1:42 AM CDT PRO B-TYPE NATRIURETIC PEPTIDE STAT 0 11/19/2024 1:42 AM CDT TROPONIN T HIGH-SENSITIVITY SERIES (BASELINE, 2HR, 4HR, 6HR) STAT 11/19/2024 1:42 AM CDT CBC WITH AUTO DIFFERENTIAL STAT 11/19 1:42 AM CDT COMPREHENSIVE METABOLIC PANEL STAT 1:42 AM CDT URINALYSIS AND REFLEX TO MICROSCOPIC AND CULTURE STAT 11/19/2024 1:42 AM CDT ECG 12-LEAD STAT 11/19/2024 1:32 AM CDT XR CHEST PA LATERAL 2 VIEWS ED 12/2024 7:12 PM CDT ECG 12-LEAD STAT 11/17/2024 6:51 PM CDT EGFR STAT 11/17/2024 6:47 PM CDT DIFFERENTIAL AUTO STAT 11/17/2024 6:47 PM CDT TROPONIN T HIGH-SENSITIVITY SERIES (BASELINE, 2HR, 4HR, 6HR) STAT 11/17/2024 6:47 PM CDT COMPREHENSIVE METABOLIC PANEL STAT 6:47 PM CDT CBC WITH AUTO DIFFERENTIAL STAT 11/17 6:47 PM CDT ECG 12-LEAD Routine 11/16/2024 11:43 PM CDT from Last 3 Months Results * Troponin T high-sensitivity 2-hour (01/13/2025 5:45 PM CDT) Trop T hs 10 <=22 ng/L Comment: Interpretive Data For further hscTnT resources including the diagnostic algorithm and an aid in interpretation, copy and paste this link: https://nrl.testcatalog.org/show/hsTrop Current Interpretive Data last revised 2020. Testing performed by: [facility], [address] [place] [address]., [address] Trop T hs delta 0 ng/L [facility] Comment:Testing performed by : [facility], [address] [place] [address]., [address] Trop T hs interp Insignificant [facility] Comment:Testing performed by : [facility], [address] [place] [address]., [address] Blood 01/13/2025 5:45 PM CDT 01/13/2025 5:47 PM CDT us Clara VASQUEZ LAB BLOOD ORDERABLES Final R esult [facility] [address] [facility] [place] [address] * CT Abdomen Pelvis W Contrast (01/13/2025 [...] Nasir Duncan M.D. LC: FARSHAD Report ID: [id number] Reading Location: [id number] Procedure Note Deisy Duncan MD - 01/13/2025 [...] Nasir Duncan M.D. LC: FARSHAD Report ID: [id number] Reading Location: [place] [address] PROCEDURES Final Resu lt * Urinalysis reflex to microscopic and culture Urine (01/13/2025 4:06 PM CDT) Color, ur Yellow Yellow Comment:Testing performed by : [address] [address] Clarity, ur Clear Clear [facility] Comment:Testing performed by : [address] [address] Specific gravity, ur 1.019 1.003 - 1.030 [facility] Comment:Testing performed by : [address] [address] pH, urine 6.0 [facility] Comment: Interpretive Data U rine pH is affected by diet, medications, systemic acid-base disturbances, and renal tubular function. pH may affect urinary stone formation. For example, urine pH below 6.0 may help reduce the tendency for calcium phosphate stones and pH greater than 6.0 may reduce the tendency for uric acid stone formation. Source: [employer] Current Interpretive Data was last revised on 2017 Testing performed by: [facility], [address] [place] [address], [place]., [address] Protein, ur ql Negative Negative [facility] Comment:Testing performed by : [facility], [address] [place] [address], [place]., [address] Glucose, ur ql Negative Negative [facility] Comment:Testing performed by : [address], [place]., [address] Ketones, ur Negative Negative [facility] Comment:Testing performed by : [address], [place]., [address] Bilirubin, ur Negative Negative [facility] Comment:Testing performed by : [address], [place]., [address] Blood, ur Negative Negative [facility] Comment:Testing performed by : [address], [place]., [address] Urobilinogen, ur <2.0 <2.0 mg/dL [facility] Comment:Testing performed by : [facility], [address] [place] [address], [place]., [address] Nitrite, ur Negative Negative [facility] Comment:Testing performed by : [address], [place]., [address] Leukocyte esterase, ur Negative Negative [facility] Comment:Testing performed by : [address], [place]., [address] UA reflex comment Reflex conditions for microscopic UA and culture not met. [facility] Comment:Testing performed by : [address] [address] Urine 01/13/2025 4:06 PM CDT 01/13/2025 4:08 PM CDT us Clara VASQUEZ LAB MICROBIOLOGY - GENERAL O RDERABLES Final Result [facility] [address] [facility] Department [place] [address] * Troponin T high-sensitivity series (baseline, 2hr, 4hr, 6hr) (01/13/2025 3:34 PM CDT) Trop T hs 10 <=22 ng/L Comment: Interpretive Data For further hscTnT resources including the diagnostic algorithm and an aid in interpretation, copy and paste this link: https://nrl.testcatalog.org/show/hsTrop Current Interpretive Data last revised 2020. Testing performed by: [facility], [address] [place] [address]., [address] Blood 01/13/2025 3:34 PM CDT 01/13/2025 3:39 PM CDT Clara VASQUEZ LAB BLOOD ORDERABLES Final R esult [facility] [address] [facility] Department [place] [address] * eGFR (01/13/2025 3:34 PM CDT) eGFR [...] of Race in Diagnosing Kidney Disease, JASN 202). The CKD-EPI equation should not be used for patients with unstable renal function and has not been validated in children and those over 70. Current interpretive data was last reviewed 2021. Testing performed by: [facility], [address] [place] [address]., [address] Blood 01/13/2025 3:34 PM CDT 01/13/2025 3:39 PM CDT us Clara VASQUEZ LAB BLOOD ORDERABLES Final R esult [facility] [address] [facility] Department [place] [address] * Differential, auto (01/13/2025 3:34 PM CDT) Neutrophil abs 4.10 1.50 - 6.50 K/cumm Comment:Testing performed by : [address] [address] Imm gran abs 0.02 0.00 - 0.10 K/cumm [facility] Comment:Testing performed by : [address] [address] Lymphocyte abs 1.31 0.80 - 3.30 K/cumm [facility] Comment:Testing performed by : [address] [address] Monocyte abs 0.61 0.20 - 0.80 K/cumm [facility] Comment:Testing performed by : [address] [address] Eosinophil abs 0.12 0.00 - 0.50 K/cumm [facility] Comment:Testing performed by : [address] [address] Basophil abs 0.02 0.00 - 0.10 K/cumm [facility] Comment:Testing performed by : [address] [address] Neutrophil pct 66.4 % [facility] Comment: Interpretive Data Percent cell count reference ranges are not reported, since discordance with absolute values may lead to misinterpretation of CBC data. Current Interpretive Data was last revised on 2017. Testing performed by: [address] [address] Imm gran pct 0.3 % [facility] Comment: Interpretive Data Percent cell count reference ranges are not reported, since discordance with absolute values may lead to misinterpretation of CBC data. Current Interpretive Data was last revised on 2017. Testing performed by: [address] [address] Lymphocyte pct 21.2 % [facility] Comment: Interpretive Data Percent cell count reference ranges are not reported, since discordance with absolute values may lead to misinterpretation of CBC data. Current Interpretive Data was last revised on 2017. Testing performed by: [address] [address] Monocyte pct 9.9 % [facility] Comment: Interpretive Data Percent cell count reference ranges are not reported, since discordance with absolute values may lead to misinterpretation of CBC data. Current Interpretive Data was last revised on 2017. Testing performed by: [address] [address] Eosinophil pct 1.9 % [facility] Comment: Interpretive Data Percent cell count reference ranges are not reported, since discordance with absolute values may lead to misinterpretation of CBC data. Current Interpretive Data was last revised on 2017. Testing performed by: [address] [address] Basophil pct 0.3 % [facility] Comment: Interpretive Data Percent cell count reference ranges are not reported, since discordance with absolute values may lead to misinterpretation of CBC data. Current Interpretive Data was last revised on 2017. Testing performed by: [address] [address] Blood 01/13/2025 3:34 PM CDT 01/13/2025 3:39 PM CDT us Clara VASQUEZ LAB BLOOD ORDERABLES Final R esult [facility] [address] [facility] Department [place] [address] * (ABNORMAL) CBC with auto differential (01/13/2025 3:34 PM CDT) WBC 6.18 3.80 - 9.90 K/cumm Comment:Testing performed by : [address] [address] Hgb 15.5 13.0 - 17.5 g/dL [facility] Comment:Testing performed by : [address], [address] Hct 46.3 38.9 - 50.3 % [facility] Comment:Testing performed by : [address] [address] Plt 272 150 - 400 K/cumm [facility] Comment:Testing performed by : [address] [address] MPV 8.3(L) 9.1 - 12.3 fL [facility] Comment:Testing performed by : [address] [address] RBC 5.38 4.30 - 5.80 M/cumm [facility] Comment:Testing performed by : [address], [address] MCV 86.1 81.3 - 96.4 fL [facility] Comment:Testing performed by : [address], [address] MCH 28.8 27.1 - 33.3 pg [facility] Comment:Testing performed by : [address], [address] MCHC 33.5 32.3 - 35.7 g/dL [facility] Comment:Testing performed by : [address], [address] RDW CV 12.7 11.1 - 14.9 % [facility] Comment:Testing performed by : [address], [address] RDW SD 39.2 35.7 - 48.1 fL [facility] Comment:Testing performed by : [address], [address] NRBC abs 0.00 0.00 - 0.01 K/cumm [facility] Comment:Testing performed by : [address], [address] Blood Venous blood specimen / Unknown 01/13/2025 3:34 PM CDT 01/13/2025 3:39 PM CDT Clara VASQUEZ LAB BLOOD ORDERABLES Final R esult Performing Organization Address City/[facility] Co de Phone Number [place] [address] [place] [address] * Lipase (01/13/2025 3:34 PM CDT) [facility] Lipase 33 10 - 99 Units/L Comment:Testing performed by : [address] [address] Blood Venous blood specimen / Unknown 01/13/2025 3:34 PM CDT 01/13/2025 3:39 PM CDT Clara VASQUEZ LAB BLOOD ORDERABLES Final R esult Performing Organization Address [facility] Co de Phone Number [address] [address] * Comprehensive metabolic panel (01/13/2025 3:34 PM CDT) [facility] Sodium 141 135 - 145 mmol/L Comment:Testing performed by : [address] [address] Potassium, pl 4.0 3.3 - 4.9 mmol/L [facility] Comment:Testing performed by : [address] [address] Chloride 104 97 - 110 mmol/L [facility] Comment:Testing performed by : [address] [address] CO2 24 22 - 32 mmol/L [facility] Comment:Testing performed by : [address] [address] Anion gap 13 2 - 15 mmol/L [facility] Comment:Testing performed by : [address] [address] BUN 12 6 - 25 mg/dL [facility] Comment:Testing performed by : [address] [address] Creatinine 0.90 0.80 - 1.30 mg/dL [facility] Comment:Testing performed by : [address] [address] Glucose 101 70 - 199 mg/dL [facility] [...] classification and Diagnosis of Diabetes Diabetes Care 202; 46: S19-S40. Current interpretive data was last revised 2022. Testing performed by: [address] [address] Calcium 9.5 8.5 - 10.3 mg/dL [facility] Comment:Testing performed by : [address] [address] Bilirubin, total 0.7 0.1 - 1.2 mg/dL [facility] Comment:Testing performed by : [address] [address] Protein, pl 7.7 6.5 - 8.5 g/dL [facility] Comment:Testing performed by : [address] [address] Albumin 4.2 3.5 - 5.0 g/dL [facility] Comment:Testing performed by : [address] [address] Alk phos 121 40 - 130 Units/L [facility] Comment:Testing performed by : [address] [address] ALT 29 7 - 55 Units/L [facility] Comment:Testing performed by : [address] [address] AST 22 10 - 50 Units/L [facility] Comment:Testing performed by : [address] [address] Blood 01/13/2025 3:34 PM CDT 01/13/2025 3:39 PM CDT us Clara VASQUEZ LAB BLOOD ORDERABLES Final R esult [facility] [address] [facility] Department of Laboratories [place] [id number] * Surgical pathology (12/04/2024 12:26 PM CDT) Tissue (Gastric/Stomach biopsy) 12/04/2024 12:26 PM CDT Comment:Cold biopsy Tissue specimen (specimen) (Esophageal biopsy) 12/04/2024 12:28 PM CDT Comment:Cold biopsy Tissue specimen (specimen) (Esophageal biopsy) 12/04/2024 12:30 PM CDT Comment:Cold biopsy Narrative PATHOLOGY [facility] - 12/05/2024 1:19 PM CDT [facility] Department of Pathology [address] [place] [address] Note to Patients: This report may contain a detailed description of human tissue sent by a health care provider to the laboratory for pathologic evaluation. The content of this report is essential for diagnosis and may provide important critical findings. This information may be unfamiliar to patients to review without a medical professional present. It is advised that the patient review this report in the presence of a health care provider who can answer questions and explain the details. Final Report with Addendum Patient Name: DOROTHY FORMAN : 1980 (Age: 44) Gender: M Address: [address] [place] [address] Hospital #: [id number] Service: Gastro Location: Patient Type: [facility] Taken: 12/04/2024 Received: 12/04/2024 Accessioned: 12/04/2024 Reported: 12/05/2024 Physician(s): Raghavendra Coronado M.D. Diagnosis: A. Stomach, body and antrum, biopsy - Antral and oxyntic mucosa with inactive chronic gastritis - Results of a H. Pylori immunostain will be reported in an addendum B. Esophagus, distal, biopsy - Squamous mucosa with reactive epithelial changes C. Esophagus, mid and proximal, biopsy - Normal esophageal squamous mucosa Madeline Mosley MD Report Electronically Reviewed and Signed Out By Madeline Mosley MD 12/05/2024 13:19:32 Addenda: Addendum - 1 Addendum Comment No H. pylori organisms are identified by immunohistochemistry Specimen(s) Received: A: Gastric body and antrum biopsy rule out H. pylori B: Distal esophageal biopsy biopsy rule out House's esophagus C: Mid and proximal esophageal biopsy rule out EOE Microscopic Description: Unless gross-only is specified, the final diagnosis for each specimen is based on a microscopic examination of each tissue sample. Clinical History: The patient is a 44-year-old man with hiccups and dysphagia unspecified type. Operative procedure: Upper GI endoscopy biopsy. Gross Description Received in three formalin jars labeled with the patient's identifiers. A. Labeled gastric body and antrum biopsy rule out H pylori and consists of three fragments of canchola-pink tissue admixed with debris ranging from 0.3-0.6 cm. Submitted entirely. Labeled A1. Jar 0. B. Labeled distal esophageal biopsy rule out House's esophagus and consists of two fragments of white-canchola tissue each measuring 0.3 cm. Submitted entirely. Labeled B1. Jar 0. C. Labeled mid and proximal esophageal biopsy rule out EOE and consists of three fragments of white-canchola tissue ranging from 0.2-0.5 cm. Submitted entirely. Labeled C1. Jar 0. [facility]/12/04/2024 14:36 CHRISTINA Ibarra Microscopic slide review and interpretation for this case was performed at [facility], Department of Surgical Pathology, [address] [facility], [place] [id number], [place] [address] CLIA # [id number] us Raghavendra Coronado MD LAB PATHOLOGY ORDERABLES Final R esult PATHOLOGY [facility] * EGD (12/04/2024 12:15 PM CDT) Anatomical Region Laterality Modality Other Narrative Procedure Note Raghavendra Coronado MD - 12/04/2024 12:15 PM CDT [facility] GI ENDOSCOPY Patient Name: Dorothy Forman Procedure Date: 12/04/2024 12:15 PM Date of : 1980 Admit Type: Outpatient Age: 44 Gender: Male Attending MD: Raghavendra Coronado M.D. Room: [facility] ENDOSCOPY ROOM 03 Note Status: Finalized Procedure: Upper GI endoscopy Indications: Dysphagia, Gastro-esophageal reflux disease,Chronic hiccups Referring MD: Providers: Raghavendra Coronado M.D. Medicines: Monitored Anesthesia Care Complications: No immediate complications. Procedure: Pre-Anesthesia Assessment: - Prior to the procedure, a History and Physicalwas performed, and patient medications and allergieswere reviewed. The risks and benefits of the procedureand the sedation options and risks were discussed withthe patient. All questions were answered and informed consent was obtained. Patient identification and proposed procedure were verified. After reviewingthe risks and benefits, the patient was deemed in satisfactory condition to undergo the procedure.The anesthesia plan was to use monitored anesthesiacare (MAC). Immediately prior to administration of medications, the patient was re-assessed foradequacy to receive sedatives. The heart rate, respiratory rate, oxygen saturations, blood pressure, adequacyof pulmonary ventilation, and response to care were monitored throughout the procedure. The physical status of the patient was re-assessed after the procedure. The benefits, risks, and alternatives to theprocedure and sedation were discussed and informed consentwas obtained. The scope was passed under direct vision. The GIF-Q180 upper endoscope was introduced through the mouth, and advanced to the second part of duodenum. The upper GI endoscopy was accomplished without difficulty. The patient tolerated the procedure well. Findings: One benign-appearing, intrinsic mild stenosis was found in the distal esophagus. The stenosis was traversed. A TTS dilator was passedthrough the scope. Dilation with a 15-16.5-18 mm balloon dilator wasperformed to 18 mm. Biopsies were taken with a cold forceps for histology. Biopsy with a cold forceps in the proximal esophagus and in the mid esophagus was performed for evaluation of eosinophilic esophagitis. Mild inflammation characterized by erythema was found in the stomach. Biopsies were taken with a cold forceps for Helicobacter pyloritesting. The examined duodenum was normal. The cardia and gastric fundus were normal on retroflexion. The exam was otherwise without abnormality. Impression: - Benign-appearing esophageal stenosis. Dilated. Biopsied. - Gastritis. Biopsied. - Normal examined duodenum. - The examination was otherwise normal. - Biopsies were performed in the proximal esophagus and in the mid esophagus. Recommendation: - Patient has a contact number available for emergencies. The signs and symptoms of potential delayed complications were discussed with thepatient. Return to normal activities tomorrow. Written discharge instructions were provided to thepatient. - GERD RECOMMENDATIONS given include: anti-reflux maneuvers, avoid acidic foods like oranges and tomatoes, avoidance of spicy foods, avoid eating3-4 hours before bed, elevation of the head of the bed, and weight loss. - Start pantoprazole 40 mg p.o. daily (advisepatient to stop this medication if he has an allergicreaction - had nausea with omeprazole). Continue famotidine p.r.n.. - Await pathology results. - Patient was advised to call GI office and make an appointment if symptoms persist. Raghavendra Coronado M.D. Raghavendra Coronado M.D. 12/04/2024 12:36:39 PM . Number of Addenda: 0 Note Initiated On: 12/04/2024 12:15 PM Recognized by the [employer] for promoting quality in endoscopy us Raghavendra Coronado MD ENDOSCOPY PROCEDURES Final Resul t * Troponin T high-sensitivity 2-hour (12/01/2024 11:41 AM CDT) Trop T hs 10 <=22 ng/L Comment: Interpretive Data For further hscTnT resources including the diagnostic algorithm and an aid in interpretation, copy and paste this link: https://nrl.testcatalog.org/show/hsTrop Current Interpretive Data last revised 2020. Testing performed by: [facility], [address] [place] [address]., [address] Trop T hs delta -2 ng/L [facility] Comment:Testing performed by : [facility], [address] [place] [address], [place]., [address] Trop T hs interp Insignificant [facility] Comment:Testing performed by : [address] [address] Blood 12/01/2024 11:4 1 AM CDT 12/01/2024 11:47 AM CDT Brandon Bradley MD LAB BLOOD ORDERABLES F inal Result [facility] [address] [facility] [place] [address] * XR Chest 1 Vw Portable (if patient condition/safety warrant portable) (12/01/2024 10:16 AM CDT) Anatomical Region Laterality Modality Body, Chest N/A Computed Radiogr aphy 12/01/2024 10:3 9 AM CDT Narrative 12/01/2024 10:42 AM CDT EXAM DESCRIPTION: XR CHEST 1 VIEW REASON FOR STUDY: chest pain Pt reports I'm taking a heart medicine and I've been taking a medicine for hiccups up too. My girl was reading up on the medicine and it said that they interact and it could give me seizures. This morning about 45 min I was in the living room and I blanked out for a second and I fell to the floor and passed out for a second. Pt endorses STREETER and chest pain. Pt denies any blood thinner use; endorses daily ASA use. TECHNIQUE: AP portable radiographic view(s) of the chest. COMPARISON: 11/19/2024 and 11/17/2024 FINDINGS: LUNGS: There is improved aeration within the lungs compared to prior examination. There is some residual opacity in the retrocardiac left lung base which could reflect atelectasis or airspace disease. No effusion or pneumothorax. HEART/MEDIASTINUM: Cardiac silhouette is enlarged. Pulmonary vasculature is within normal limits in size, decreased in size compared to the prior examination. LINES/TUBES: EKG leads. BONES: No acute osseous abnormality. IMPRESSION: Cardiomegaly without significant pulmonary vascular congestion or overt edema. Retrocardiac opacity within the left lung base, atelectasis versus pneumonia. Follow-up recommended THIS IS AN ELECTRONICALLY VERIFIED FINAL REPORT 12/01/2024 10:42 AM - Electronically signed by Kristy Avery M.D. TW: DARRIN Report ID: [id number] Reading Location: [id number] Procedure Note Kristy Avery MD - 12/01/2024 EXAM DESCRIPTION: XR CHEST 1 VIEW REASON FOR STUDY: chest pain Pt reports I'm taking a heart medicine and I've been taking a medicinefor hiccups up too. My girl was reading up on the medicine and it said thatthey interact and it could give me seizures. This morning about 45 min I was inthe living room and I blanked out for a second and I fell to the floor and passed out for a second. Pt endorses STREETER and chest pain. Pt deniesany blood thinner use; endorses daily ASA use. TECHNIQUE: AP portable radiographic view(s) of the chest. COMPARISON: 11/19/2024 and 11/17/2024 FINDINGS: LUNGS: There is improved aeration within the lungs compared to prior examination. There is some residual opacity in the retrocardiacleft lung base which could reflect atelectasis or airspace disease. Noeffusion or pneumothorax. HEART/MEDIASTINUM: Cardiac silhouette is enlarged. Pulmonary vasculatureis within normal limits in size, decreased in size compared to the prior examination. LINES/TUBES: EKG leads. BONES: No acute osseous abnormality. IMPRESSION: Cardiomegaly without significant pulmonary vascular congestionor overt edema. Retrocardiac opacity within the left lung base, atelectasis versuspneumonia. Follow-up recommended THIS IS AN ELECTRONICALLY VERIFIED FINAL REPORT 12/01/2024 10:42 AM - Electronically signed by Kristy Avery M.D. TW: TW Report ID: [id number] Reading Location: [place] [address] us Brandon Bradley MD IMG XR PROCEDURES Graciela l Result * Troponin T high-sensitivity series (baseline, 2hr, 4hr, 6hr) (12/01/2024 10:00 AM CDT) Trop T hs 12 <=22 ng/L Comment: Interpretive Data For further hscTnT resources including the diagnostic algorithm and an aid in interpretation, copy and paste this link: https://nrl.testcatalog.org/show/hsTrop Current Interpretive Data last revised 2020. Testing performed by: [facility], [address] [place] [address]., [address] Blood 12/01/2024 10:0 0 AM CDT 12/01/2024 10:04 AM CDT Brandon Bradley MD LAB BLOOD ORDERABLES F inal Result [facility] [address] [facility] [place] [address] * eGFR (12/01/2024 10:00 AM CDT) eGFR >90 >=60 mL/min/1. 73 m2 [...] was last reviewed 2021. Testing performed by: [address] [address] Blood 12/01/2024 10:0 0 AM CDT 12/01/2024 10:04 AM CDT us Brandon Bradley MD LAB BLOOD ORDERABLES F inal Result [facility] [facility] Department [place] [address] * (ABNORMAL) Differential, auto (12/01/2024 10:00 AM CDT) Neutrophil abs 1.45(L) 1.50 - 6.50 K/cumm Comment:Testing performed by : [address] [address] Imm gran abs 0.01 0.00 - 0.10 K/cumm [facility] Comment:Testing performed by : [address] [address] Lymphocyte abs 1.03 0.80 - 3.30 K/cumm [facility] Comment:Testing performed by : [address] [address] Monocyte abs 0.39 0.20 - 0.80 K/cumm [facility] Comment:Testing performed by : [address] [address] Eosinophil abs 0.24 0.00 - 0.50 K/cumm [facility] Comment:Testing performed by : [address] [address] Basophil abs 0.02 0.00 - 0.10 K/cumm [facility] Comment:Testing performed by : [address] [address] Neutrophil pct 46.3 % [facility] Comment: Interpretive Data Percent cell count reference ranges are not reported, since discordance with absolute values may lead to misinterpretation of CBC data. Current Interpretive Data was last revised on 2017. Testing performed by: [address] [address] Imm gran pct 0.3 % [facility] Comment: Interpretive Data Percent cell count reference ranges are not reported, since discordance with absolute values may lead to misinterpretation of CBC data. Current Interpretive Data was last revised on 2017. Testing performed by: [address] [address] Lymphocyte pct 32.8 % [facility] Comment: Interpretive Data Percent cell count reference ranges are not reported, since discordance with absolute values may lead to misinterpretation of CBC data. Current Interpretive Data was last revised on 2017. Testing performed by: [address] [address] Monocyte pct 12.4 % [facility] Comment: Interpretive Data Percent cell count reference ranges are not reported, since discordance with absolute values may lead to misinterpretation of CBC data. Current Interpretive Data was last revised on 2017. Testing performed by: [address] [address] Eosinophil pct 7.6 % [facility] Comment: Interpretive Data Percent cell count reference ranges are not reported, since discordance with absolute values may lead to misinterpretation of CBC data. Current Interpretive Data was last revised on 2017. Testing performed by: [address] [address] Basophil pct 0.6 % [facility] Comment: Interpretive Data Percent cell count reference ranges are not reported, since discordance with absolute values may lead to misinterpretation of CBC data. Current Interpretive Data was last revised on 2017. Testing performed by: [address] [address] Blood 12/01/2024 10:0 0 AM CDT 12/01/2024 10:04 AM CDT us Brandon Bradley MD LAB BLOOD ORDERABLES F inal Result [facility] [address] [facility] [place] [address] * (ABNORMAL) CBC with auto differential (12/01/2024 10:00 AM CDT) WBC 3.14(L) 3.80 - 9.90 K/cumm Comment:Testing performed by : [address] [address] Hgb 16.0 13.0 - 17.5 g/dL [facility] Comment:Testing performed by : [address], [address] Hct 49.2 38.9 - 50.3 % [facility] Comment:Testing performed by : [address] [address] Plt 235 150 - 400 K/cumm [facility] Comment:Testing performed by : [address] [address] MPV 8.6(L) 9.1 - 12.3 fL [facility] Comment:Testing performed by : [address] [address] RBC 5.54 4.30 - 5.80 M/cumm [facility] Comment:Testing performed by : [address] [address] MCV 88.8 81.3 - 96.4 fL [facility] Comment:Testing performed by : [address] [address] MCH 28.9 27.1 - 33.3 pg [facility] Comment:Testing performed by : [address] [address] MCHC 32.5 32.3 - 35.7 g/dL [facility] Comment:Testing performed by : [address], [address] RDW CV 12.5 11.1 - 14.9 % [facility] Comment:Testing performed by : [address] [address] RDW SD 41.1 35.7 - 48.1 fL [facility] Comment:Testing performed by : [address] [address] NRBC abs 0.00 0.00 - 0.01 K/cumm [facility] Comment:Testing performed by : [address] [address] Blood Venous blood specimen / Unknown 12/01/2024 10:00 AM CDT 12/01/2024 10:04 AM CDT us Brandon Bradley MD LAB BLOOD ORDERABLES F inal Result [facility] [facility] [place] [address] * (ABNORMAL) Comprehensive metabolic panel (12/01/2024 10:00 AM CDT) Sodium 138 135 - 145 mmol/L Comment:Testing performed by : [address] [address] Potassium, pl 4.2 3.3 - 4.9 mmol/L [facility] Comment: Hemolyzed; Potassium value may be falsely elevated by as much as 1.0 mmol/L. Suggest redraw and reanalysis. Testing performed by: [address] [address] Chloride 104 97 - 110 mmol/L [facility] Comment:Testing performed by : [address] [address] CO2 23 22 - 32 mmol/L [facility] Comment:Testing performed by : [address] [address] Anion gap 11 2 - 15 mmol/L [facility] Comment:Testing performed by : [address] [address] BUN 7 6 - 25 mg/dL [facility] Comment:Testing performed by : [address] [address] Creatinine 0.99 0.80 - 1.30 mg/dL [facility] Comment:Testing performed by : [address] [address] Glucose 112 70 - 199 mg/dL [facility] Comment: Interpretive Data Fasting glucose >/= 126 [...] classification and Diagnosis of Diabetes Diabetes Care 202; 46: S19-S40. Current interpretive data was last revised 2022. Testing performed by: [address] [address] Calcium 9.8 8.5 - 10.3 mg/dL [facility] Comment:Testing performed by : [address] [address] Bilirubin, total 0.5 0.1 - 1.2 mg/dL [facility] Comment:Testing performed by : [address] [address] Protein, pl 7.5 6.5 - 8.5 g/dL [facility] Comment:Testing performed by : [address] [address] Albumin 4.2 3.5 - 5.0 g/dL [facility] Comment:Testing performed by : [address] [address] Alk phos 97 40 - 130 Units/L [facility] Comment:Testing performed by : [address] [address] ALT 104(H) 7 - 55 Units/L [facility] Comment:Testing performed by : [address] [address] AST 53(H) 10 - 50 Units/L [facility] Comment: Hemolyzed; result may be falsely elevated Testing performed by: [address] [address] Blood 12/01/2024 10:0 0 AM CDT 12/01/2024 10:04 AM CDT Brandon Bradley MD LAB BLOOD ORDERABLES F inal Result Performing Organization Address [facility] Co de Phone Number [facility] [facility] [place] [address] * ECG 12 lead (12/01/2024 9:48 AM CDT) Ventricular Rate EKG/Min 83 BPM [facility] Atrial Rate 83 BPM [facility] LA-Interval (MSEC) 166 ms [facility] QRS-Interval (MSEC) 78 ms [facility] QT-Interval (MSEC) 364 ms [facility] QTc 427 ms [facility] P Orange 72 degrees [facility] R Orange 16 degrees [facility] T Orange 38 degrees [facility] Diagnosis Normal sinus rhythm Normal ECG When compared with ECG of 22-NOV-2024 01:56, No significant change was found Confirmed by MANUELA SORENSEN M.D. ([id number]) on 12/01/2024 12:15:27 PM [facility] 12/01/2024 9:48 AM CDT 12/01/2024 12:15 PM CDT Brandon Bradley MD ECG ORDERABLES Final Result Performing Organization Address [facility] Phone Number [facility] * eGFR (11/29/2024 5:50 PM CDT) eGFR 80 >=60 mL/min/1. 73 m2 Comment: Interpretive Data [...] of Race in Diagnosing Kidney Disease, JASN 202). The CKD-EPI equation should not be used for patients with unstable renal function and has not been validated in children and those over 70. Current interpretive data was last reviewed 2021. Testing performed by: [address] [address] Blood 11/29/2024 5:50 PM CDT 11/29/2024 6:08 PM CDT us Aj Restrepo Jr., MD LAB BLOOD ORDERABLES Fi nal Result [facility] [facility] [place] [address] * Differential, auto (11/29/2024 5:50 PM CDT) Neutrophil abs 1.65 1.50 - 6.50 K/cumm Comment:Testing performed by : [address] [address] Imm gran abs 0.01 0.00 - 0.10 K/cumm [facility] Comment:Testing performed by : [address] [address] Lymphocyte abs 1.43 0.80 - 3.30 K/cumm [facility] Comment:Testing performed by : [address] [address] Monocyte abs 0.45 0.20 - 0.80 K/cumm [facility] Comment:Testing performed by : [address] [address] Eosinophil abs 0.26 0.00 - 0.50 K/cumm [facility] Comment:Testing performed by : [address] [address] Basophil abs 0.01 0.00 - 0.10 K/cumm [facility] Comment:Testing performed by : [address] [address] Neutrophil pct 43.3 % [facility] Comment: Interpretive Data Percent cell count reference ranges are not reported, since discordance with absolute values may lead to misinterpretation of CBC data. Current Interpretive Data was last revised on 2017. Testing performed by: [address] [address] Imm gran pct 0.3 % [facility] Comment: Interpretive Data Percent cell count reference ranges are not reported, since discordance with absolute values may lead to misinterpretation of CBC data. Current Interpretive Data was last revised on 2017. Testing performed by: [address] [address] Lymphocyte pct 37.5 % [facility] Comment: Interpretive Data Percent cell count reference ranges are not reported, since discordance with absolute values may lead to misinterpretation of CBC data. Current Interpretive Data was last revised on 2017. Testing performed by: [address] [address] Monocyte pct 11.8 % [facility] Comment: Interpretive Data Percent cell count reference ranges are not reported, since discordance with absolute values may lead to misinterpretation of CBC data. Current Interpretive Data was last revised on 2017. Testing performed by: [address] [address] Eosinophil pct 6.8 % [facility] Comment: Interpretive Data Percent cell count reference ranges are not reported, since discordance with absolute values may lead to misinterpretation of CBC data. Current Interpretive Data was last revised on 2017. Testing performed by: [address] [address] Basophil pct 0.3 % [facility] Comment: Interpretive Data Percent cell count reference ranges are not reported, since discordance with absolute values may lead to misinterpretation of CBC data. Current Interpretive Data was last revised on 2017. Testing performed by: [address] [address] Blood 11/29/2024 5:50 PM CDT 11/29/2024 6:08 PM CDT us Aj Restrepo Jr., MD LAB BLOOD ORDERABLES Fi nal Result [facility] [address] Department of Laboratories [place], [place] [id number] * (ABNORMAL) CBC with auto differential (11/29/2024 5:50 PM CDT) WBC 3.81 3.80 - 9.90 K/cumm Comment:Testing performed by : [address] [address] Hgb 15.3 13.0 - 17.5 g/dL [facility] Comment:Testing performed by : [address], [address] Hct 46.5 38.9 - 50.3 % [facility] Comment:Testing performed by : [address] [address] Plt 255 150 - 400 K/cumm [facility] Comment:Testing performed by : [address] [address] MPV 8.4(L) 9.1 - 12.3 fL [facility] Comment:Testing performed by : [address] [address] RBC 5.24 4.30 - 5.80 M/cumm [facility] Comment:Testing performed by : [address] [address] MCV 88.7 81.3 - 96.4 fL [facility] Comment:Testing performed by : [address] [address] MCH 29.2 27.1 - 33.3 pg [facility] Comment:Testing performed by : [address] [address] MCHC 32.9 32.3 - 35.7 g/dL [facility] Comment:Testing performed by : [address] [address] RDW CV 12.5 11.1 - 14.9 % [facility] Comment:Testing performed by : [address] [address] RDW SD 40.9 35.7 - 48.1 fL [facility] Comment:Testing performed by : [address] [address] NRBC abs 0.00 0.00 - 0.01 K/cumm [facility] Comment:Testing performed by : [address] [address] Blood 11/29/2024 5:50 PM CDT 11/29/2024 6:08 PM CDT us Aj Restrepo Jr., MD LAB BLOOD ORDERABLES Fi nal Result [facility] Department [place] [address] * (ABNORMAL) Comprehensive metabolic panel (11/29/2024 5:50 PM CDT) Sodium 138 135 - 145 mmol/L Comment:Testing performed by : [address] [address] Potassium, pl 4.2 3.3 - 4.9 mmol/L [facility] Comment: Hemolyzed; Potassium value may be falsely elevated by as much as 1.0 mmol/L. Suggest redraw and reanalysis. Testing performed by: [address] [address] Chloride 103 97 - 110 mmol/L [facility] Comment:Testing performed by : [address] [address] CO2 25 22 - 32 mmol/L [facility] Comment:Testing performed by : [address] [address] Anion gap 10 2 - 15 mmol/L [facility] Comment:Testing performed by : [address] [address] BUN 10 6 - 25 mg/dL [facility] Comment:Testing performed by : [address] [address] Creatinine 1.17 0.80 - 1.30 mg/dL [facility] Comment:Testing performed by : [address] [address] Glucose 103 70 - 199 mg/dL [facility] Comment: Interpretive [...] was last revised 2022. Testing performed by: [address] [address] Calcium 10.1 8.5 - 10.3 mg/dL [facility] Comment:Testing performed by : [address] [address] Bilirubin, total 0.5 0.1 - 1.2 mg/dL [facility] Comment:Testing performed by : [address] [address] Protein, pl 7.3 6.5 - 8.5 g/dL [facility] Comment:Testing performed by : [address] [address] Albumin 4.1 3.5 - 5.0 g/dL [facility] Comment:Testing performed by : [address] [address] Alk phos 87 40 - 130 Units/L [facility] Comment:Testing performed by : [address] [address] ALT 90(H) 7 - 55 Units/L [facility] Comment:Testing performed by : [address] [address] AST 40 10 - 50 Units/L [facility] Comment: Hemolyzed; result may be falsely elevated Testing performed by: [address] [address] Blood 11/29/2024 5:50 PM CDT 11/29/2024 6:08 PM CDT us Aj Restrepo Jr., MD LAB BLOOD ORDERABLES Fi nal Result [facility] [address] [place] [address] * ECG 12 lead (11/22/2024 1:56 AM CDT) Ventricular Rate EKG/Min 90 BPM [facility] Atrial Rate 90 BPM [facility] LA-Interval (MSEC) 170 ms [facility] QRS-Interval (MSEC) 82 ms [facility] QT-Interval (MSEC) 356 ms [facility] QTc 435 ms [facility] P Orange 62 degrees [facility] R Orange 5 degrees [facility] T Orange 35 degrees [facility] Diagnosis Normal sinus rhythm Possible Left atrial enlargement Borderline ECG When compared with ECG of 19-NOV-2024 01:32, No significant change was found Confirmed by KOJO HARRIS M.D. ([id number]) on 11/26/2024 11:12:53 AM [facility] 11/22/2024 1:56 AM CDT 11/26/2024 11:12 AM CDT us Ligia Woods MD ECG ORDERABLES Final Re sult Performing Organization Address [facility] Co de Phone Number [facility] * Troponin T high-sensitivity 2-hour (11/19/2024 4:34 AM CDT) Trop T hs 12 <=22 ng/L Comment: Interpretive Data For further hscTnT resources including the diagnostic algorithm and an aid in interpretation, copy and paste this link: https://nrl.testcatalog.org/show/hsTrop Current Interpretive Data last revised 2020. Testing performed by: [facility], [address] [place] [address]., [address] Trop T hs delta -2 ng/L [facility] Comment:Testing performed by : [address] [address] Trop T hs interp Insignificant [facility] Comment:Testing performed by : [facility], [address] [facility], [place]., [address] Blood 11/19/2024 4:34 AM CDT 11/19/2024 4:56 AM CDT us Aj Restrepo Jr., MD LAB BLOOD ORDERABLES Fi nal Result [facility] [address] Department [place] [address] * CT Chest Abdomen Pelvis WO Contrast (11/19/2024 2:53 AM CDT) Anatomical Region Laterality Modality Body N/A Computed Tomogra phy 11/19/2024 3:07 AM CDT Narrative 11/19/2024 3:13 AM CDT EXAM DESCRIPTION: CT CHEST ABDOMEN PELVIS WO CONTRAST REASON FOR STUDY: persistent hiccoughs for 4 days, now sob, throat pain and abd pain Pt c/o trouble breathing when laying down. Pt reports Hx of NV in October 2024. Pt also reports hiccups x 3 days. After triage, pt also notes difficult and painful urination. TECHNIQUE: CT scan of the chest, abdomen, and pelvis performed without intravenous and without oral contrast using helical scanning technique. Reconstructed coronal and sagittal MPR images reviewed. All images stored on PACS. Automated exposure control was used as a dose optimization technique for this examination. COMPARISON: 06/05/2021 FINDINGS: LUNGS: Clear. Trachea and major airways are patent. HEART/MEDIASTINUM/LENA: Heart size normal. Coronary artery calcifications. No enlarged lymph node. Thoracic inlet unremarkable. CHEST MSK: Mild multilevel disc disease. CHEST WALL: Unremarkable. LIVER/BILIARY: Mild hepatic steatosis. Biliary tree normal in caliber. GALLBLADDER: Normal. SPLEEN: Normal. PANCREAS: Normal. ADRENAL GLANDS: Normal. KIDNEYS/URINARY TRACT: Unremarkable. GI: Stomach and small bowel appear normal. Colon and appendix unremarkable. OTHER ABDOMINAL/PELVIS: Major vascular structures are normal in caliber. No enlarged lymph node or free fluid. MSK: Unremarkable. BODY WALL: Unremarkable. IMPRESSION: No esophageal inflammation or other abnormality identified to account for presentation. THIS IS AN ELECTRONICALLY VERIFIED FINAL REPORT 11/19/2024 3:13 AM - Electronically signed by Wiliam Roper M.D. AR: ROBY Report ID: [id number] Reading Location: [id number] Procedure Note Wiliam Roper MD - 11/19/2024 EXAM DESCRIPTION: CT CHEST ABDOMEN PELVIS WO CONTRAST REASON FOR STUDY: persistent hiccoughs for 4 days, now sob, throatpain and abd pain Pt c/o trouble breathing when laying down. Pt reports Hx of NV in October2024. Pt also reports hiccups x 3 days. After triage, pt also notes difficult and painful urination. TECHNIQUE: CT scan of the chest, abdomen, and pelvis performed without intravenous and without oral contrast using helical scanning technique. Reconstructed coronal and sagittal MPR images reviewed. All images storedon PACS. Automated exposure control was used as a dose optimizationtechnique for this examination. COMPARISON: 06/05/2021 FINDINGS: LUNGS: Clear. Trachea and major airways are patent. HEART/MEDIASTINUM/LENA: Heart size normal. Coronary arterycalcifications. No enlarged lymph node. Thoracic inlet unremarkable. CHEST MSK: Mild multilevel disc disease. CHEST WALL: Unremarkable. LIVER/BILIARY: Mild hepatic steatosis. Biliary tree normal in caliber. GALLBLADDER: Normal. SPLEEN: Normal. PANCREAS: Normal. ADRENAL GLANDS: Normal. KIDNEYS/URINARY TRACT: Unremarkable. GI: Stomach and small bowel appear normal. Colon and appendixunremarkable. OTHER ABDOMINAL/PELVIS: Major vascular structures are normal in caliber.No enlarged lymph node or free fluid. MSK: Unremarkable. BODY WALL: Unremarkable. IMPRESSION: No esophageal inflammation or other abnormality identified to account for presentation. THIS IS AN ELECTRONICALLY VERIFIED FINAL REPORT 11/19/2024 3:13 AM - Electronically signed by Wiliam Roper M.D. AR: ROBY Report ID: [id number] Reading Location: [place] [address] Aj Restrepo Jr., MD IMG CT PROCEDURES Final Result * CT Neck Soft Tissue W Contrast (11/19/2024 2:53 AM CDT) Anatomical Region Laterality Modality Head and Neck N/A Computed Tomogra phy 11/19/2024 3:04 AM CDT Narrative 11/19/2024 3:07 AM CDT EXAM DESCRIPTION: CT SOFT TISSUE NECK W CONTRAST REASON FOR STUDY: Soft tissue infection suspected, neck, xray done Pt c/o trouble breathing when laying down. Pt reports Hx of NV in October 2024. Pt also reports hiccups x 3 days. After triage, pt also notes difficult and painful urination. TECHNIQUE: Post IV contrast scanning from skull base through lung apices. Reconstructed MPR images reviewed. All images stored on PACS. Automated exposure control was used as a dose optimization technique for this examination. CONTRAST TYPE/DOSE: 100mL of IOVERSOL 350 MG IODINE/ML INTRAVENOUS SYRINGE injected via intravenous COMPARISON: 06/05/2021 FINDINGS: AERODIGESTIVE TRACT: No mass, inflammation, or other asymmetry. THORACIC INLET//MEDIASTINUM: Thyroid gland unremarkable. Upper mediastinum appears normal. NECK SOFT TISSUE: Salivary glands appear normal. No enlarged lymph node. LUNG APICES: Clear. SKULL BASE: Visualized paranasal sinuses, middle ear cavities, and mastoid air cells are clear. Included intracranial contents, orbits, and globes unremarkable. OTHER OSSEOUS: Cervical spine unremarkable. Visualized ribs, clavicles, and scapula appear normal. IMPRESSION: Unremarkable CT soft tissue neck. THIS IS AN ELECTRONICALLY VERIFIED FINAL REPORT 11/19/2024 3:07 AM - Electronically signed by Wiliam Roper M.D. AR: ROBY Report ID: [id number] Reading Location: [id number] Procedure Note Wiliam Roper MD - 11/19/2024 EXAM DESCRIPTION: CT SOFT TISSUE NECK W CONTRAST REASON FOR STUDY: Soft tissue infection suspected, neck, xray done Pt c/o trouble breathing when laying down. Pt reports Hx of NV in October2024. Pt also reports hiccups x 3 days. After triage, pt also notes difficult and painful urination. TECHNIQUE: Post IV contrast scanning from skull base through lung apices. Reconstructed MPR images reviewed. All images stored on PACS. Automated exposure control was used as a dose optimization technique for this examination. CONTRAST TYPE/DOSE: 100mL of IOVERSOL 350 MG IODINE/ML INTRAVENOUSSYRINGE injected via intravenous COMPARISON: 06/05/2021 FINDINGS: AERODIGESTIVE TRACT: No mass, inflammation, or other asymmetry. THORACIC INLET//MEDIASTINUM: Thyroid gland unremarkable. Uppermediastinum appears normal. NECK SOFT TISSUE: Salivary glands appear normal. No enlarged lymph node. LUNG APICES: Clear. SKULL BASE: Visualized paranasal sinuses, middle ear cavities, andmastoid air cells are clear. Included intracranial contents, orbits, and globes unremarkable. OTHER OSSEOUS: Cervical spine unremarkable. Visualized ribs, clavicles,and scapula appear normal. IMPRESSION: Unremarkable CT soft tissue neck. THIS IS AN ELECTRONICALLY VERIFIED FINAL REPORT 11/19/2024 3:07 AM - Electronically signed by Wiliam Roper M.D. AR: AR Report ID: [id number] Reading Location: [place] [address] Aj Restrepo Jr., MD [facility] [place] PROCEDURES Final Result * D-dimer, quantitative (11/19/2024 2:08 AM CDT) D-Dimer 420 <=499 ng/mL FEU Comment: Interpretive data FDA approved the D-dimer, in conjunction with a low or moderate pretest probability score, to exclude venous thromboembolic events (VTE) (PE and DVT) in outpatients when the D-dimer result is < 500 ng/ml FEU. Evidence supports using an age-adjusted D-dimer cut-off for outpatients older than 50 (age x 10) to improve specificity without sacrificing sensitivity. Example: age 68, VTE cut-off 680 ng/ml FEU. References; Tra FARRIS et al. Brit Med J. 2013;346:f2492. Rajendra et al. Annals Int Med. 2015;163:701-11. Current interpretive data was last revised on 2019. Testing performed by: [facility], [address] [place] [address], [place]., [address] Blood 11/19/2024 2:08 AM CDT 11/19/2024 2:15 AM CDT us jA Restrepo Jr., MD LAB BLOOD ORDERABLES Fi nal Result [facility] [address] [place] [address] * XR Chest 1 Vw Portable (if patient condition/safety warrant portable) (11/19/2024 1:55 AM CDT) Anatomical Region Laterality Modality Body, Chest N/A Computed Radiogr aphy 11/19/2024 1:56 AM CDT Narrative 11/19/2024 1:59 AM CDT EXAM DESCRIPTION: XR CHEST 1 VIEW REASON FOR STUDY: Shortness of breath Pt c/o trouble breathing when laying down. Pt reports Hx of NV in October 2024. Pt also reports hiccups x 3 days. Pt here for hiccups and chest pain 11/17/24 had 2 view chest xray TECHNIQUE: Portable upright AP view of the chest. COMPARISON: 11/17/2024 FINDINGS: LUNGS AND PLEURA: Mild congestion. HEART/MEDIASTINUM: Trachea midline. Cardiac silhouette normal in size. Mediastinal contours appear normal. BONES: Unremarkable. CHEST WALL: Unremarkable. UPPER ABDOMEN: Unremarkable. IMPRESSION: Mild diffuse congestion nonspecific for CHF versus pneumonia, not well characterized with portable technique. THIS IS AN ELECTRONICALLY VERIFIED FINAL REPORT 11/19/2024 1:59 AM - Electronically signed by Wiliam Roper M.D. AR: ROBY Report ID: [id number] Reading Location: [id number] Procedure Note Wiliam Roper MD - 11/19/2024 EXAM DESCRIPTION: XR CHEST 1 VIEW REASON FOR STUDY: Shortness of breath Pt c/o trouble breathing when laying down. Pt reports Hx of NV in October2024. Pt also reports hiccups x 3 days. Pt here for hiccups and chest pain11/17/24 had 2 view chest xray TECHNIQUE: Portable upright AP view of the chest. COMPARISON: 11/17/2024 FINDINGS: LUNGS AND PLEURA: Mild congestion. HEART/MEDIASTINUM: Trachea midline. Cardiac silhouette normal in size. Mediastinal contours appear normal. BONES: Unremarkable. CHEST WALL: Unremarkable. UPPER ABDOMEN: Unremarkable. IMPRESSION: Mild diffuse congestion nonspecific for CHF versus pneumonia,not well characterized with portable technique. THIS IS AN ELECTRONICALLY VERIFIED FINAL REPORT 11/19/2024 1:59 AM - Electronically signed by Wiliam Roper M.D. AR: ROBY Report ID: [id number] Reading Location: [place] [address] us Aj Restrepo Jr., MD IMG XR PROCEDURES Final Result * Troponin T high-sensitivity series (baseline, 2hr, 4hr, 6hr) (11/19/2024 1:42 AM CDT) Pathologist [facility] Trop T hs 14 <=22 ng/L Comment: Interpretive Data For further hscTnT resources including the diagnostic algorithm and an aid in interpretation, copy and paste this link: https://nrl.testcatalog.org/show/hsTrop Current Interpretive Data last revised 2020. Testing performed by: [facility], [address] [place] [address]., [address] Blood 11/19/2024 1:42 AM CDT 11/19/2024 2:03 AM CDT us Aj Restrepo Jr., MD LAB BLOOD ORDERABLES Fi nal Result [facility] [address] [place] [address] * eGFR (11/19/2024 1:42 AM CDT) Pathologist [facility] eGFR 75 >=60 mL/min/1. 73 m2 Comment: Interpretive Data [...] was last reviewed 2021. Testing performed by: [address] [address] Blood 11/19/2024 1:42 AM CDT 11/19/2024 2:03 AM CDT us Aj Restrepo Jr., MD LAB BLOOD ORDERABLES Fi nal Result [facility] [address] [place] [address] * Differential, auto (11/19/2024 1:42 AM CDT) Neutrophil abs 3.39 1.50 - 6.50 K/cumm Comment:Testing performed by : [address] [address] Imm gran abs 0.02 0.00 - 0.10 K/cumm [facility] Comment:Testing performed by : [address] [address] Lymphocyte abs 1.64 0.80 - 3.30 K/cumm [facility] Comment:Testing performed by : [address] [address] Monocyte abs 0.72 0.20 - 0.80 K/cumm [facility] Comment:Testing performed by : [address] [place]., [address] Eosinophil abs 0.23 0.00 - 0.50 K/cumm [facility] Comment:Testing performed by : [address] [address] Basophil abs 0.03 0.00 - 0.10 K/cumm [facility] Comment:Testing performed by : [address] [address] Neutrophil pct 56.3 % [facility] Comment: Interpretive Data Percent cell count reference ranges are not reported, since discordance with absolute values may lead to misinterpretation of CBC data. Current Interpretive Data was last revised on 2017. Testing performed by: [address] [address] Imm gran pct 0.3 % [facility] Comment: Interpretive Data Percent cell count reference ranges are not reported, since discordance with absolute values may lead to misinterpretation of CBC data. Current Interpretive Data was last revised on 2017. Testing performed by: [address] [address] Lymphocyte pct 27.2 % [facility] Comment: Interpretive Data Percent cell count reference ranges are not reported, since discordance with absolute values may lead to misinterpretation of CBC data. Current Interpretive Data was last revised on 2017. Testing performed by: [address] [address] Monocyte pct 11.9 % [facility] Comment: Interpretive Data Percent cell count reference ranges are not reported, since discordance with absolute values may lead to misinterpretation of CBC data. Current Interpretive Data was last revised on 2017. Testing performed by: [address] [address] Eosinophil pct 3.8 % [facility] Comment: Interpretive Data Percent cell count reference ranges are not reported, since discordance with absolute values may lead to misinterpretation of CBC data. Current Interpretive Data was last revised on 2017. Testing performed by: [address] [address] Basophil pct 0.5 % [facility] Comment: Interpretive Data Percent cell count reference ranges are not reported, since discordance with absolute values may lead to misinterpretation of CBC data. Current Interpretive Data was last revised on 2017. Testing performed by: [facility], [address] [place] [address], [place]., [address] Blood 11/19/2024 1:42 AM CDT 11/19/2024 2:03 AM CDT us Aj Restrepo Jr., MD LAB BLOOD ORDERABLES Fi nal Result [facility] [address] [place] [address] * Pro B-type natriuretic peptide (11/19/2024 1:42 AM CDT) NT-proBNP 99 <=300 pg/mL Comment: Interpretive Comments: A. Dyspnea in Acute Care Setting All Ages: < 300 pg/ml, acute heart failure unlikely. < 50 yrs: 300 - 450 pg/ml, further investigation warranted. > 450 pg/ml, acute heart failure likely. 50 - 74 yrs: 300 - 900 pg/ml, further investigation warranted. > 900 pg/ml, acute heart failure likely . > or = 75 yrs: 450 - 1800 pg/ml, further investigation warranted. > 1800 pg/ml, acute heart failure likely. B. Non-acute Setting < 75 yrs < 125 pg/ml, rules out heart failure. > or = 125 pg/ml, further investigation warranted. > or = 75 yrs < 450 pg/ml, rules out heart failure. > or = 450 pg/ml, further investigation warranted. - Knowledge of each individual patient's NT-proBNP range may be more useful than using similar cut-points for every patient. Please note that marked elevations in NT-proBNP levels may be observed in state other than Left Ventricular Congestive Failure, including: acute coronary syndromes, right heart strain/failure (including pulmonary embolism and cor pulmonale), critical illness, renal failure, as well as advanced age. - References: 1. Gaby ANQVI et.al. Eur Heart J. 2006:27:330-337. 2. Sophia RW, Riya AM. J. AM Marifer Cardiol: Cardiovasc Imag. 2009;2: 216- 225. Interpretive Data Last Revised Date: 2018. Testing performed by: [address] [address] Blood 11/19/2024 1:42 AM CDT 11/19/2024 2:03 AM CDT us Aj Restrepo Jr., MD LAB BLOOD ORDERABLES Fi nal Result [facility] [address] [place] [address] * Urinalysis reflex to microscopic and culture Urine, clean voided (11/19/2024 1:42 AM CDT) Color, ur Straw Yellow Comment:Testing performed by : [address] [address] Clarity, ur Clear Clear [facility] Comment:Testing performed by : [address] [address] Specific gravity, ur 1.007 1.003 - 1.030 [facility] Comment:Testing performed by : [address] [address] pH, urine 6.5 [facility] Comment: Interpretive Data U rine pH is affected by diet, medications, systemic acid-base disturbances, and renal tubular function. pH may affect urinary stone formation. For example, urine pH below 6.0 may help reduce the tendency for calcium phosphate stones and pH greater than 6.0 may reduce the tendency for uric acid stone formation. Source: [facility] Current Interpretive Data was last revised on 2017 Testing performed by: [address] [address] Protein, ur ql Negative Negative [facility] Comment:Testing performed by : [address] [address] Glucose, ur ql Negative Negative [facility] Comment:Testing performed by : [address] [address] Ketones, ur Negative Negative [facility] Comment:Testing performed by : [address] [address] Bilirubin, ur Negative Negative [facility] Comment:Testing performed by : [address] [address] Blood, ur Negative Negative [facility] Comment:Testing performed by : [address], [place]., [address] Urobilinogen, ur <2.0 <2.0 mg/dL [facility] Comment:Testing performed by : [address], [place]., [address] Nitrite, ur Negative Negative [facility] Comment:Testing performed by : [address], [place]., [address] Leukocyte esterase, ur Negative Negative [facility] Comment:Testing performed by : [address] [address] UA reflex comment Reflex conditions for microscopic UA and culture not met. [facility] Comment:Testing performed by : [address] [address] Urine, clean voided 11/19/2024 1:42 AM CDT 11/19/2024 2:03 AM CDT us Aj Restrepo Jr., MD LAB MICROBIOLOGY - [facility] ORDERABLES Final Result [facility] [address] [place] [address] * (ABNORMAL) CBC with auto differential (11/19/2024 1:42 AM CDT) WBC 6.03 3.80 - 9.90 K/cumm Comment:Testing performed by : [address] [address] Hgb 15.5 13.0 - 17.5 g/dL [facility] Comment:Testing performed by : [address] [address] Hct 46.8 38.9 - 50.3 % [facility] Comment:Testing performed by : [address] [address] Plt 238 150 - 400 K/cumm [facility] Comment:Testing performed by : [address] [address] MPV 8.5(L) 9.1 - 12.3 fL [facility] Comment:Testing performed by : [address] [address] RBC 5.32 4.30 - 5.80 M/cumm [facility] Comment:Testing performed by : [address] [address] MCV 88.0 81.3 - 96.4 fL [facility] Comment:Testing performed by : [address] [address] MCH 29.1 27.1 - 33.3 pg [facility] Comment:Testing performed by : [address] [address] MCHC 33.1 32.3 - 35.7 g/dL [facility] Comment:Testing performed by : [address], [address] RDW CV 12.7 11.1 - 14.9 % [facility] Comment:Testing performed by : [address], [address] RDW SD 40.9 35.7 - 48.1 fL [facility] Comment:Testing performed by : [address] [address] NRBC abs 0.00 0.00 - 0.01 K/cumm [facility] Comment:Testing performed by : [address] [address] Blood 11/19/2024 1:42 AM CDT 11/19/2024 2:03 AM CDT us Aj Restrepo Jr., MD LAB BLOOD ORDERABLES Fi nal Result [facility] [address] [place] [address] * Magnesium (11/19/2024 1:42 AM CDT) Magnesium 2.4 1.4 - 2.5 mg/dL Comment:Testing performed by : [address] [address] Blood 11/19/2024 1:42 AM CDT 11/19/2024 2:03 AM CDT Aj Restrepo Jr., MD LAB BLOOD ORDERABLES Fi nal Result [facility] [address] Department [place] [address] * (ABNORMAL) Comprehensive metabolic panel (11/19/2024 1:42 AM CDT) Sodium 138 135 - 145 mmol/L Comment:Testing performed by : [address] [address] Potassium, pl 3.8 3.3 - 4.9 mmol/L [facility] Comment: Hemolyzed; Potassium value may be falsely elevated by as much as 1.0 mmol/L. Suggest redraw and reanalysis. Testing performed by: [address] [address] Chloride 103 97 - 110 mmol/L [facility] Comment:Testing performed by : [address] [address] CO2 24 22 - 32 mmol/L [facility] Comment:Testing performed by : [address] [address] Anion gap 11 2 - 15 mmol/L [facility] Comment:Testing performed by : [address] [address] BUN 15 6 - 25 mg/dL [facility] Comment:Testing performed by : [address] [address] Creatinine 1.23 0.80 - 1.30 mg/dL [facility] Comment:Testing performed by : [address] [address] Glucose 99 70 - 199 mg/dL [facility] Comment: Interpretive [...] was last revised 2022. Testing performed by: [address] [address] Calcium 9.7 8.5 - 10.3 mg/dL [facility] Comment:Testing performed by : [address] [address] Bilirubin, total 0.8 0.1 - 1.2 mg/dL [facility] Comment:Testing performed by : [address] [address] Protein, pl 7.3 6.5 - 8.5 g/dL [facility] Comment:Testing performed by : [address] [address] Albumin 4.2 3.5 - 5.0 g/dL [facility] Comment:Testing performed by : [address] [address] Alk phos 84 40 - 130 Units/L [facility] Comment:Testing performed by : [address] [address] ALT 90(H) 7 - 55 Units/L [facility] Comment:Testing performed by : [address] [address] AST 59(H) 10 - 50 Units/L [facility] Comment: Hemolyzed; result may be falsely elevated Testing performed by: [address] [address] Blood 11/19/2024 1:42 AM CDT 11/19/2024 2:03 AM CDT us Aj Restrepo Jr., MD LAB BLOOD ORDERABLES Fi nal Result [facility] [address] [place] [address] * ECG 12 lead (11/19/2024 1:32 AM CDT) Ventricular Rate EKG/Min 90 BPM [facility] Atrial Rate 90 BPM [facility] LA-Interval (MSEC) 170 ms [facility] QRS-Interval (MSEC) 82 ms [facility] QT-Interval (MSEC) 352 ms [facility] QTc 430 ms [facility] P Orange 64 degrees [facility] R Orange 7 degrees [facility] T Orange 33 degrees [facility] Diagnosis Normal sinus rhythm Possible Left atrial enlargement Borderline ECG When compared with ECG of 17-NOV-2024 18:51, Nonspecific T wave abnormality has replaced inverted T waves in Inferior leads Confirmed by KOJO HARRIS M.D. ([id number]) on 11/19/2024 7:38:22 PM [facility] 11/19/2024 1:32 AM CDT 11/19/2024 7:38 PM CDT us Aj Restrepo Jr., MD ECG ORDERABLES Final R esult [facility] [employer] [facility] * XR Chest PA Lateral 2 Views (11/17/2024 7:12 PM CDT) Anatomical Region Laterality Modality Body, Chest N/A Computed Radiogr aphy 11/17/2024 7:36 PM CDT Narrative 11/17/2024 7:42 PM CDT EXAM DESCRIPTION: XR CHEST PA LATERAL 2 VIEWS REASON FOR STUDY: chest pain Pt reports he was seen at [facility] urgent care yesterday for hiccups, pt was seen in this ED this AM for hiccups and was given Reglan 10 mg IV that stopped his hiccups, pt was prescribed Reglan 10 mg Q6H, he took a dose this AM but has not had any since. Pt notes hiccups returned 20 minutes [employer]. Pt also endorsing chest pain at this time. TECHNIQUE: Frontal and lateral radiographic view(s) of the chest. COMPARISON: Chest radiograph dated 10/10/2024. FINDINGS: LUNGS: No focal opacity, pleural effusion, or pneumothorax. HEART/MEDIASTINUM: Cardiac silhouette normal in size. Mediastinal and hilar contours appear normal. LINES/TUBES: None. BONES: No acute osseous abnormality. IMPRESSION: No acute cardiopulmonary abnormality. THIS IS AN ELECTRONICALLY VERIFIED FINAL REPORT 11/17/2024 7:42 PM - Electronically signed by Jonel Ann M.D. MF: CHRISTOPHER Report ID: [id number] Reading Location: [id number] Procedure Note Jonel Ann, DO - 11/17/2024 EXAM DESCRIPTION: XR CHEST PA LATERAL 2 VIEWS REASON FOR STUDY: chest pain Pt reports he was seen at [facility] urgent care yesterday forhiccups, pt was seen in this ED this AM for hiccups and was given Reglan 10 mg IVthat stopped his hiccups, pt was prescribed Reglan 10 mg Q6H, he took a dosethis AM but has not had any since. Pt notes hiccups returned 20 minutes [employer].Pt also endorsing chest pain at this time. TECHNIQUE: Frontal and lateral radiographic view(s) of the chest. COMPARISON: Chest radiograph dated 10/10/2024. FINDINGS: LUNGS: No focal opacity, pleural effusion, or pneumothorax. HEART/MEDIASTINUM: Cardiac silhouette normal in size. Mediastinal andhilar contours appear normal. LINES/TUBES: None. BONES: No acute osseous abnormality. IMPRESSION: No acute cardiopulmonary abnormality. THIS IS AN ELECTRONICALLY VERIFIED FINAL REPORT 11/17/2024 7:42 PM - Electronically signed by Jonel WHITE: CHRISTOPHER Report ID: [id number] Reading Location: [id number] us Senia Arango DEHYDROGENATION CONVERTER HELPER IMG XR PROCEDURES Final Result * ECG 12 lead (11/17/2024 6:51 PM CDT) [facility] Ventricular Rate EKG/Min 87 BPM [facility] Atrial Rate 87 BPM [facility] LA-Interval (MSEC) 164 ms [facility] QRS-Interval (MSEC) 80 ms [facility] QT-Interval (MSEC) 358 ms [facility] QTc 430 ms [facility] P Orange 59 degrees [facility] R Orange 43 degrees [facility] T Orange 1 degrees [facility] Diagnosis Normal sinus rhythm Normal ECG When compared with ECG of 16-NOV-2024 23:43, Inverted T waves have replaced nonspecific T wave abnormality in Inferior leads Confirmed by JONEL MORENO M.D. ([id number]) on 11/18/2024 12:51:29 PM [facility] 11/17/2024 6:51 PM CDT 11/18/2024 12:51 PM CDT us Senia Arango DEHYDROGENATION CONVERTER HELPER ECG ORDERABLES Final Re sult Performing Organization Address City/[facility]/ZIP Co de Phone Number [facility] * Troponin T high-sensitivity series (baseline, 2hr, 4hr, 6hr) (11/17/2024 6:47 PM CDT) [facility] Trop T hs 19 <=22 ng/L Comment: Interpretive Data For further hscTnT resources including the diagnostic algorithm and an aid in interpretation, copy and paste this link: https://nrl.testcatalog.org/show/hsTrop Current Interpretive Data last revised 2020. Testing performed by: [facility], [address] [place] [address]., [address] Blood 11/17/2024 6:47 PM CDT 11/17/2024 6:50 PM CDT us Senia Arango DEHYDROGENATION CONVERTER HELPER LAB BLOOD ORDERABLES Fin al Result [facility] [address] Department [place] [address] * eGFR (11/17/2024 6:47 PM CDT) eGFR 84 >=60 mL/min/1. 73 m2 Comment: Interpretive Data [...] was last reviewed 2021. Testing performed by: [address] [address] Blood 11/17/2024 6:47 PM CDT 11/17/2024 6:50 PM CDT us Senia Arango NP LAB BLOOD ORDERABLES Fin al Result Performing Organization Address City/State/[facility] Co de Phone Number [facility] [address] Department of Laboratories [place], [place] [id number] * Differential, auto (11/17/2024 6:47 PM CDT) Pathologist [facility] Neutrophil abs 2.31 1.50 - 6.50 K/cumm Comment:Testing performed by : [address] [address] Imm gran abs 0.01 0.00 - 0.10 K/cumm [facility] Comment:Testing performed by : [address] [address] Lymphocyte abs 1.85 0.80 - 3.30 K/cumm [facility] Comment:Testing performed by : [address] [address] Monocyte abs 0.62 0.20 - 0.80 K/cumm [facility] Comment:Testing performed by : [address] [address] Eosinophil abs 0.27 0.00 - 0.50 K/cumm [facility] Comment:Testing performed by : [address] [address] Basophil abs 0.02 0.00 - 0.10 K/cumm [facility] Comment:Testing performed by : [address] [address] Neutrophil pct 45.5 % [facility] Comment: Interpretive Data Percent cell count reference ranges are not reported, since discordance with absolute values may lead to misinterpretation of CBC data. Current Interpretive Data was last revised on 2017. Testing performed by: [address] [address] Imm gran pct 0.2 % [facility] Comment: Interpretive Data Percent cell count reference ranges are not reported, since discordance with absolute values may lead to misinterpretation of CBC data. Current Interpretive Data was last revised on 2017. Testing performed by: [address] [address] Lymphocyte pct 36.4 % [facility] Comment: Interpretive Data Percent cell count reference ranges are not reported, since discordance with absolute values may lead to misinterpretation of CBC data. Current Interpretive Data was last revised on 2017. Testing performed by: [address] [address] Monocyte pct 12.2 % [facility] Comment: Interpretive Data Percent cell count reference ranges are not reported, since discordance with absolute values may lead to misinterpretation of CBC data. Current Interpretive Data was last revised on 2017. Testing performed by: [address] [address] Eosinophil pct 5.3 % [facility] Comment: Interpretive Data Percent cell count reference ranges are not reported, since discordance with absolute values may lead to misinterpretation of CBC data. Current Interpretive Data was last revised on 2017. Testing performed by: [address] [address] Basophil pct 0.4 % [facility] Comment: Interpretive Data Percent cell count reference ranges are not reported, since discordance with absolute values may lead to misinterpretation of CBC data. Current Interpretive Data was last revised on 2017. Testing performed by: [address] [address] Blood 11/17/2024 6:47 PM CDT 11/17/2024 6:50 PM CDT us Senia Arango DEHYDROGENATION CONVERTER HELPER LAB BLOOD ORDERABLES Fin al Result [facility] [address] [place] [address] * (ABNORMAL) CBC with auto differential (11/17/2024 6:47 PM CDT) WBC 5.08 3.80 - 9.90 K/cumm Comment:Testing performed by : [address] [address] Hgb 15.5 13.0 - 17.5 g/dL [facility] Comment:Testing performed by : [address] [address] Hct 47.3 38.9 - 50.3 % [facility] Comment:Testing performed by : [address] [address] Plt 245 150 - 400 K/cumm [facility] Comment:Testing performed by : [address] [address] MPV 8.5(L) 9.1 - 12.3 fL [facility] Comment:Testing performed by : [address] [address] RBC 5.33 4.30 - 5.80 M/cumm [facility] Comment:Testing performed by : [address] [address] MCV 88.7 81.3 - 96.4 fL [facility] Comment:Testing performed by : [address] [address] MCH 29.1 27.1 - 33.3 pg [facility] Comment:Testing performed by : [address] [address] MCHC 32.8 32.3 - 35.7 g/dL [facility] Comment:Testing performed by : [address] [address] RDW CV 12.8 11.1 - 14.9 % [facility] Comment:Testing performed by : [address] [address] RDW SD 41.0 35.7 - 48.1 fL [facility] Comment:Testing performed by : [address] [address] NRBC abs 0.00 0.00 - 0.01 K/cumm [facility] Comment:Testing performed by : [address] [address] Blood Venous blood specimen / Unknown 11/17/2024 6:47 PM CDT 11/17/2024 6:50 PM CDT Senia Arango DEHYDROGENATION CONVERTER HELPER LAB BLOOD ORDERABLES Fin al Result [facility] Department of Laboratories [place], [place] [id number] * (ABNORMAL) Comprehensive metabolic panel (11/17/2024 6:47 PM CDT) Sodium 140 135 - 145 mmol/L Comment:Testing performed by : [address] [address] Potassium, pl 4.2 3.3 - 4.9 mmol/L [facility] Comment:Testing performed by : [address] [address] Chloride 105 97 - 110 mmol/L [facility] Comment:Testing performed by : [address] [address] CO2 26 22 - 32 mmol/L [facility] Comment:Testing performed by : [address] [address] Anion gap 9 2 - 15 mmol/L [facility] Comment:Testing performed by : [address] [address] BUN 10 6 - 25 mg/dL [facility] Comment:Testing performed by : [address] [address] Creatinine 1.12 0.80 - 1.30 mg/dL [facility] Comment:Testing performed by : [address] [address] Glucose 122 70 - 199 mg/dL [facility] Comment: Interpretive [...] was last revised 2022. Testing performed by: [address] [address] Calcium 10.0 8.5 - 10.3 mg/dL [facility] Comment:Testing performed by : [address] [address] Bilirubin, total 0.5 0.1 - 1.2 mg/dL [facility] Comment:Testing performed by : [address] [address] Protein, pl 7.2 6.5 - 8.5 g/dL [facility] Comment:Testing performed by : [address] [address] Albumin 4.2 3.5 - 5.0 g/dL [facility] Comment:Testing performed by : [address] [address] Alk phos 84 40 - 130 Units/L [facility] Comment:Testing performed by : [address] [address] ALT 88(H) 7 - 55 Units/L [facility] Comment:Testing performed by : [facility], [address] [place] [address]., [address] AST 55(H) 10 - 50 Units/L [facility] Comment:Testing performed by : [facility], [address] [place] [address]., [address] Blood 11/17/2024 6:47 PM CDT 11/17/2024 6:50 PM CDT us Senia Arango DEHYDROGENATION CONVERTER HELPER LAB BLOOD ORDERABLES Fin al Result [facility] [address] [place] [address] * ECG 12 lead (11/16/2024 11:43 PM CDT) Ventricular Rate EKG/Min 84 BPM [facility] Atrial Rate 84 BPM [facility] LA-Interval (MSEC) 180 ms [facility] QRS-Interval (MSEC) 80 ms [facility] QT-Interval (MSEC) 370 ms [facility] QTc 437 ms [facility] P Orange 67 degrees [facility] R Orange 4 degrees [facility] T Orange 27 degrees [facility] Diagnosis Normal sinus rhythm Possible Left atrial enlargement Borderline ECG When compared with ECG of 10-OCT-2024 10:02, No significant change was found Confirmed by MIKIE CHO M.D. ([id number]) on 11/17/2024 3:22:09 PM [facility] 11/16/2024 11:4 3 PM CDT 11/17/2024 3:22 PM CDT us Xiomara Chavis DEHYDROGENATION CONVERTER HELPER ECG ORDERABLES Final Resu lt Performing Organization Address City/[facility]/ZIP Co de Phone Number [facility] [employer] [facility] from Last 3 Months Insurance [employer] [facility] MEDICARE ADVANTAGE ([place]) [address] [address] [employer] [facility] MEDICARE ADVANTAGE Advance Directives For more information, please contact: [phone] * Full Code (Latest Code Status on File) Date Activated Date Inactivated Comments 10/10/2024 1:20 PM 10/11/2024 6:54 PM * Full Code Date Activated Date Inactivated Comments 10/10/2024 12:44 PM 10/10/2024 1:20 PM Care Teams Imaging Specialist Relationship Specialty Start Date End Date Momo Hameed MD [address] [address] PCP - General Family Medicine 12/01/24
--- OUTSIDE RECORDS SUMMARY | 2025-01-15 13:05 | XMS_ITS | Clinical Summary ---
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) And alternative you can take 5 mL [...] syndrome 05/23/2019 Left carpal tunnel syndrome 10/09/2018 Encounters Date Type Department Care Team Description 01/14/20 7:36 PM CDT - 01/14/20 8:57 PM CDT Emergency [facility] Emergency Department [address] [place] [phone] Hiccups (Primary Dx); Calculus of gallbladder without cholecystitis without obstruction; Biliary colic Discharge Disposition: Discharge to home or self care 01/04/20 25 Telephone [facility] Gastroenterology at [address] [place] [address] Cynthia Martinez NP 12/27/19 25 Telephone [facility] Cardiology [address] [place] [address] [address] [place] [address] Edgardo Beth MD 12/18/19 Documentation [facility] Gastroenterology at [address] [place] [address] Clara Ivy DNP Hiccups 12/18/19 Telephone [facility] Gastroenterology at [address] [place] [phone] Cynthia Martinez NP 12/15/19 4:49 PM CDT - 12/15/19 7:37 PM CDT Emergency [facility] Emergency Department [address] [place] [address] Medication refill (Primary Dx) Discharge Disposition: Discharge to home or self care 12/14/19 5:39 PM CDT - 12/14/19 5:42 PM CDT Emergency [facility] Emergency Department [address] [place] [address] Discharge Disposition: Left without being seen 12/07/19 2:45 PM CDT Office Visit [facility] Cardiology [address] [place] [address] [address] [place] [address] Edgardo Beth MD NSTEMI (non-ST elevated myocardial infarction) (HCC) (Primary Dx) 12/07/19 Results Follow-Up [facility] Gastroenterology at [address] [place] [address] Raghavendra Coronado MD Surgical pathology 12/05/19 12:15 PM CDT Anesthesia Event [facility] GI Lab [address] [place] [address] Moreno Alejandra MD 12/05/19 12:00 PM CDT - 12/05/19 25 12:30 PM CDT Surgery [facility] GI Lab [address] [place] [address] Raghavendra Coronado MD ESOPHAGOGASTRODUODENOSCOPY BALLOON DILATION <30MM 12/05/19 25 10:38 AM CDT - 12/05/19 25 1:20 PM CDT Hospital Encounter [facility] GI Lab [address] [place] [address] Raghavendra Coronado MD Hiccups; Dysphagia, unspecified type Discharge Disposition: Discharge to home or self care 12/04/19 25 Orders Only [facility] Gastroenterology at [address] [address] Raghavendra Coronado MD Hiccups (Primary Dx); Dysphagia, unspecified type 12/02/19 10:02 AM CDT - 12/02/19 12:53 PM CDT Emergency [facility] Emergency Department [address] [place] [phone] Brandon Bradley MD Syncope, unspecified syncope type (Primary Dx) Discharge Disposition: Discharge to home or self care 12/01/19 25 Telephone [facility] Cardiology [address] [place] [phone] Edgardo Beth MD Cardiac Clearance 11/30/19 6:34 PM CDT - 11/30/19 8:21 PM CDT Emergency [facility] Emergency Department [address] [place] [address] [phone] Aj Restrepo Jr., MD Intractable hiccups (Primary Dx); Dysphagia, unspecified type; Gastroesophageal reflux disease, unspecified whether esophagitis present Discharge Disposition: Discharge to home or self care 11/30/19 25 Telephone [facility] Gastroenterology at [address] [address] Moshe Swift 11/23/19 10:00 AM CDT Office Visit [facility] Gastroenterology at [address] [phone] Cynthia Martinez NP Hiccups (Primary Dx); Dysphagia, unspecified type 11/23/19 2:46 AM CDT - 11/23/19 3:54 AM CDT Emergency [facility] Emergency Department [address] [place] [address] Ligia Woods MD Intractable hiccups (Primary Dx) Discharge Disposition: Discharge to home or self care 11/21/19 9:22 PM CDT - 11/22/19 12:33 AM CDT [facility] Emergency Department [address] [place] [address] Edin Moncada DO Anxiety (Primary Dx) Discharge Disposition: Discharge to home or self care 11/20/19 9:38 PM CDT - 11/20/19 11:28 PM CDT [facility] Emergency Department [address] [place] [address] Aj Restrepo Jr., MD Hiccups (Primary Dx); Gastroesophageal reflux disease with esophagitis without hemorrhage; Esophagitis Discharge Disposition: Discharge to home or self care 11/20/19 1:46 AM CDT - 11/20/19 7:17 AM CDT [facility] Emergency Department [address] [place] [address] Aj Restrepo Jr., MD Intractable hiccups (Primary Dx); Gastroesophageal reflux disease, unspecified whether esophagitis present Discharge Disposition: Discharge to home or self care 11/20/19 Telephone [facility] Gastroenterology at [address] [place] [phone] Raghavendra Coronado MD 11/18/19 7:12 PM CDT - 11/18/19 8:09 PM T [facility] Emergency Department [address] [place] [address] Sorin Parkinson MD Chronic hiccups (Primary Dx) Discharge Disposition: Discharge to home or self care 11/17/19 25 10:48 PM CDT - 11/18/19 25 12:22 AM T [facility] Emergency Department [address] [place] [address] Hiccups (Primary Dx) Discharge Disposition: Discharge to home or self care 05/06/20 25 Telephone [facility] Cardiology [address] [facility] [address] [place] [address] Edgardo Beth MD from Last 3 Months Surgical History Surgery Date Site/Laterality Comments CARDIAC CATHETERIZATION 10/10/2024 N/A Procedure: LEFT HEART CATHETERIZATION WITH CORONARY ANGIOGRAPHY AND WITH OR WITHOUT LEFT VENTRICULOGRAM [id number]; Surgeon: Edgardo Beth MD; Location: [facility] CARDIAC METAL BURRER; Service: Cardiovascular; Laterality: N/A; UPPER GASTROINTESTINAL ENDOSCOPY X 2 Medical History Medical History Date Comments HTN (hypertension) S/P open reduction and inter nal fixation (ORIF) of fracture of lateral condyle of right femur 01/12/2020 ANKLE AN D LOWER LEG BONE Family History Medical History Relation Name Comments Heart disease Brother Colon polyps Maternal Grandfather Stomach cancer Maternal Grandfather Relation Name Status Comments Brother Maternal Grandfather Social History Tobacco Use Types Packs/Day Years Used Date Smoking Tobacco: Never [facility] W[facility] Answer Date Recorded In the past 12 months has Direct[employer], [employer], or water [employer] threatened to shut off services in your [...] week 10/11/2024 How often do you attend [facility] or hindu services? Never 10/11/2024 Do you belong to any clubs o r organizations such as druze groups, unions, fraternal or athletic groups, or [...] any time in the past 12 m [facility], were you homeless or living in a [place] health care facility (including now)? No 10/11/2024 Personal Safety Answer Date Recorded Have you ever been in or are you currently in a harmful physical or emotional relationship or is someone making you feel afraid or unsafe? 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 Gender Identity Not on file Sexual Orientation Not on file Obstetrics History Last Filed Vital Signs Vital Sign Reading [...] 12/14/2024 4:54 PM CDT Plan of Treatment Health Maintenance Due Date Last Done Comments Depression Screening 1980 Hepatitis C Screening 1980 Prostate Cancer Screening-PSA 1980 Varicella Vaccines (1 of 2 - 13+ 2-dose series) 1995 Hepatitis B Screening 01/08/2000 Regular Well Visit/Exam 18-64 01/08/2000 HPV Vaccines (1 - 3-dose SCDM series) 2009 Covid-19 Vaccine ( - season) 2024 05/05/2021, 02/23/2021 Influenza Vaccine (#1) 2025 DTaP/Tdap/Td Vaccine (7 - Td or Tdap) 08/01/2030 08/01/2020, 12/06/1986, 06/26/1986, Additional history exists Pneumococcal vaccine <65 Aged Out No longer eligible based on patient's age to complete this topic Medical Devices 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 Testing performed by: [address] [address] Trop T hs delta 0 ng/L [facility] Comment:Testing performed by : [address] [address] Trop T hs interp Insignificant [facility] Comment:Testing performed by : [address] [address] Blood 01/13/2025 5:45 PM CDT 01/13/2025 5:47 PM CDT Clara VASQUEZ LAB BLOOD ORDERABLES Final R esult [facility] [address] [facility] [place] [address] * CT Abdomen Pelvis W Contrast (01/13/2025 [...] Nasir Duncan M.D. LC: FARSHAD Report ID: [id number] Reading Location: [place] [address] Procedure Note Deisy Duncan MD - 01/13/2025 [...] Nasir Duncan M.D. LC: FARSHAD Report ID: [id number] Reading Location: [place] [address] PROCEDURES Final Resu lt * Urinalysis reflex to microscopic and culture Urine (01/13/2025 4:06 PM CDT) Color, ur Yellow Yellow Comment:Testing performed by : [address] [address] Clarity, ur Clear Clear [facility] Comment:Testing performed by : [address] [address] Specific gravity, ur 1.019 1.003 - 1.030 [facility] Comment:Testing performed by : [address] [address] pH, urine 6.0 [facility] Comment: Interpretive Data U rine pH is affected by diet, medications, systemic acid-base disturbances, and renal tubular function. pH may affect urinary stone formation. For example, urine pH below 6.0 may help reduce the tendency for calcium phosphate stones and pH greater than 6.0 may reduce the tendency for uric acid stone formation. Source: [facility] [employer] Current Interpretive Data was last revised on 2017 Testing performed by: [address] [address] Protein, ur ql Negative Negative [facility] Comment:Testing performed by : [address] [address] Glucose, ur ql Negative Negative [facility] Comment:Testing performed by : [address] [address] Ketones, ur Negative Negative [facility] Comment:Testing performed by : [address] [address] Bilirubin, ur Negative Negative [facility] Comment:Testing performed by : [address] [address] Blood, ur Negative Negative [facility] Comment:Testing performed by : [address] [address] Urobilinogen, ur <2.0 <2.0 mg/dL [facility] Comment:Testing performed by : [address], [place]., [address] Nitrite, ur Negative Negative [facility] Comment:Testing performed by : [address] [address] Leukocyte esterase, ur Negative Negative [facility] Comment:Testing performed by : [address], [place]., [address] UA reflex comment Reflex conditions for microscopic UA and culture not met. [facility] Comment:Testing performed by : [address] [address] Urine 01/13/2025 4:06 PM CDT 01/13/2025 4:08 PM CDT us Clara VASQUEZ LAB MICROBIOLOGY - GENERAL O RDERABLES Final Result [facility] [address] [facility] [place] [address] * Troponin T high-sensitivity series (baseline, 2hr, 4hr, 6hr) (01/13/2025 3:34 PM CDT) Trop T hs 10 <=22 ng/L Comment: Interpretive Data For further hscTnT resources including the diagnostic algorithm and an aid in interpretation, copy and paste this link: https://nrl.testcatalog.org/show/hsTrop Current Interpretive Data last revised 2020. Testing performed by: [address] [address] Blood 01/13/2025 3:34 PM CDT 01/13/2025 3:39 PM CDT us Clara VASQUEZ LAB BLOOD ORDERABLES Final R esult Performing Organization Address [facility] de Phone Number [place] [address] [facility] [place] [address] * eGFR (01/13/2025 3:34 PM CDT) eGFR [...] was last reviewed 2021. Testing performed by: [address] [address] Blood 01/13/2025 3:34 PM CDT 01/13/2025 3:39 PM CDT Clara VASQUEZ LAB BLOOD ORDERABLES Final R esult Performing Organization Address City/[facility] Co de Phone Number [facility] [address] [facility] [place] [address] * Differential, auto (01/13/2025 3:34 PM CDT) Neutrophil abs 4.10 1.50 - 6.50 K/cumm Comment:Testing performed by : [address] [address] Imm gran abs 0.02 0.00 - 0.10 K/cumm [facility] Comment:Testing performed by : [address] [address] Lymphocyte abs 1.31 0.80 - 3.30 K/cumm [facility] Comment:Testing performed by : [address] [address] Monocyte abs 0.61 0.20 - 0.80 K/cumm [facility] Comment:Testing performed by : [address], [place]., [address] Eosinophil abs 0.12 0.00 - 0.50 K/cumm [facility] Comment:Testing performed by : [address], [place]., [address] Basophil abs 0.02 0.00 - 0.10 K/cumm [facility] Comment:Testing performed by : [address] [address] Neutrophil pct 66.4 % [facility] Comment: Interpretive Data Percent cell count reference ranges are not reported, since discordance with absolute values may lead to misinterpretation of CBC data. Current Interpretive Data was last revised on 2017. Testing performed by: [address] [address] Imm gran pct 0.3 % [facility] Comment: Interpretive Data Percent cell count reference ranges are not reported, since discordance with absolute values may lead to misinterpretation of CBC data. Current Interpretive Data was last revised on 2017. Testing performed by: [address] [address] Lymphocyte pct 21.2 % [facility] Comment: Interpretive Data Percent cell count reference ranges are not reported, since discordance with absolute values may lead to misinterpretation of CBC data. Current Interpretive Data was last revised on 2017. Testing performed by: [address] [address] Monocyte pct 9.9 % [facility] Comment: Interpretive Data Percent cell count reference ranges are not reported, since discordance with absolute values may lead to misinterpretation of CBC data. Current Interpretive Data was last revised on 2017. Testing performed by: [address] [address] Eosinophil pct 1.9 % [facility] Comment: Interpretive Data Percent cell count reference ranges are not reported, since discordance with absolute values may lead to misinterpretation of CBC data. Current Interpretive Data was last revised on 2017. Testing performed by: [address] [address] Basophil pct 0.3 % [facility] Comment: Interpretive Data Percent cell count reference ranges are not reported, since discordance with absolute values may lead to misinterpretation of CBC data. Current Interpretive Data was last revised on 2017. Testing performed by: [address] [address] Blood 01/13/2025 3:34 PM CDT 01/13/2025 3:39 PM CDT us Clara VASQUEZ LAB BLOOD ORDERABLES Final R esult [facility] [address] [facility] [place] [address] * (ABNORMAL) CBC with auto differential (01/13/2025 3:34 PM CDT) WBC 6.18 3.80 - 9.90 K/cumm Comment:Testing performed by : [address] [address] Hgb 15.5 13.0 - 17.5 g/dL [facility] Comment:Testing performed by : [address] [address] Hct 46.3 38.9 - 50.3 % [facility] Comment:Testing performed by : [address] [address] Plt 272 150 - 400 K/cumm [facility] Comment:Testing performed by : [address] [address] MPV 8.3(L) 9.1 - 12.3 fL [facility] Comment:Testing performed by : [address] [address] RBC 5.38 4.30 - 5.80 M/cumm [facility] Comment:Testing performed by : [address] [address] MCV 86.1 81.3 - 96.4 fL [facility] Comment:Testing performed by : [address] [address] MCH 28.8 27.1 - 33.3 pg [facility] Comment:Testing performed by : [address] [address] MCHC 33.5 32.3 - 35.7 g/dL [facility] Comment:Testing performed by : [address] [address] RDW CV 12.7 11.1 - 14.9 % [facility] Comment:Testing performed by : [address] [address] RDW SD 39.2 35.7 - 48.1 fL [facility] Comment:Testing performed by : [address] [address] NRBC abs 0.00 0.00 - 0.01 K/cumm [facility] Comment:Testing performed by : [address] [address] Blood Venous blood specimen / Unknown 01/13/2025 3:34 PM CDT 01/13/2025 3:39 PM CDT us Clara VASQUEZ LAB BLOOD ORDERABLES Final R esult [facility] [address] [facility] Department of Laboratories [place], [place] [id number] * Lipase (01/13/2025 3:34 PM CDT) Lipase 33 10 - 99 Units/L Comment:Testing performed by : [address] [address] Blood Venous blood specimen / Unknown 01/13/2025 3:34 PM CDT 01/13/2025 3:39 PM CDT Clara VASQUEZ LAB BLOOD ORDERABLES Final R esult [facility] [address] [facility] [place] [address] * Comprehensive metabolic panel (01/13/2025 3:34 PM CDT) Sodium 141 135 - 145 mmol/L Comment:Testing performed by : [address] [address] Potassium, pl 4.0 3.3 - 4.9 mmol/L [facility] Comment:Testing performed by : [address] [address] Chloride 104 97 - 110 mmol/L [facility] Comment:Testing performed by : [address] [address] CO2 24 22 - 32 mmol/L [facility] Comment:Testing performed by : [address] [address] Anion gap 13 2 - 15 mmol/L [facility] Comment:Testing performed by : [address] [address] BUN 12 6 - 25 mg/dL [facility] Comment:Testing performed by : [address] [address] Creatinine 0.90 0.80 - 1.30 mg/dL [facility] Comment:Testing performed by : [address] [address] Glucose 101 70 - 199 mg/dL [facility] [...] was last revised 2022. Testing performed by: [address] [address] Calcium 9.5 8.5 - 10.3 mg/dL [facility] Comment:Testing performed by : [address] [address] Bilirubin, total 0.7 0.1 - 1.2 mg/dL [facility] Comment:Testing performed by : [address] [address] Protein, pl 7.7 6.5 - 8.5 g/dL [facility] Comment:Testing performed by : [address] [address] Albumin 4.2 3.5 - 5.0 g/dL [facility] Comment:Testing performed by : [address], [address] Alk phos 121 40 - 130 Units/L [facility] Comment:Testing performed by : [address] [address] ALT 29 7 - 55 Units/L [facility] Comment:Testing performed by : [address] [address] AST 22 10 - 50 Units/L [facility] Comment:Testing performed by : [address] [address] Blood 01/13/2025 3:34 PM CDT 01/13/2025 3:39 PM CDT Clara VASQUEZ LAB BLOOD ORDERABLES Final R esult [facility] [address] [facility] [place] [address] * Surgical pathology (12/04/2024 12:26 PM CDT) Tissue (Gastric/Stomach biopsy) 12/04/2024 12:26 PM CDT Comment:Cold biopsy Tissue specimen (specimen) (Esophageal biopsy) 12/04/2024 12:28 PM CDT Comment:Cold biopsy Tissue specimen (specimen) (Esophageal biopsy) 12/04/2024 12:30 PM CDT Comment:Cold biopsy Narrative PATHOLOGY [facility] - 12/05/2024 1:19 PM CDT [facility] Department of Pathology [address] [place] [address] Note to Patients: This report may contain [...] : 1980 (Age: 44) Gender: M Address: [address] [place] [address] Hospital #: [id number] Service: Gastro Location: Patient Type: [facility] OUTPATIENT Taken: 12/04/2024 Received: 12/04/2024 Accessioned: 12/04/2024 [...] cm. Submitted entirely. Labeled C1. Jar [facility]. [facility]/12/04/2024 14:36 CHRISTINA Ibarra Microscopic slide review and interpretation for this case was performed at [facility], Department of Surgical Pathology, [address] [facility] [place] [id number], [place] [address] CLIA # [id number] us Raghavendra Coronado MD LAB PATHOLOGY ORDERABLES Final R esult PATHOLOGY [facility] * EGD (12/04/2024 12:15 PM CDT) Anatomical Region Laterality Modality Other Narrative Procedure Note Raghavendra Coronado MD - 12/04/2024 12:15 PM CDT [facility] GI ENDOSCOPY Patient Name: Dorothy Forman Procedure Date: 12/04/2024 12:15 PM Date of : 1980 Admit Type: Outpatient Age: 44 Gender: Male Attending MD: Raghavendra Coronado M.D. Room: [facility] ENDOSCOPY ROOM 03 Note Status: Finalized [...] On: 12/04/2024 12:15 PM Recognized by the [employer] for promoting quality in endoscopy Raghavendra Coronado MD ENDOSCOPY PROCEDURES Final Resul t * Troponin T high-sensitivity 2-hour (12/01/2024 11:41 AM CDT) Trop T hs 10 <=22 ng/L Comment: Interpretive Data For further hscTnT resources including the diagnostic algorithm and an aid in interpretation, copy and paste this link: https://nrl.testcatalog.org/show/hsTrop Current Interpretive Data last revised 2020. Testing performed by: [address] [address] Trop T hs delta -2 ng/L [facility] Comment:Testing performed by : [address] [address] Trop T hs interp Insignificant [facility] Comment:Testing performed by : [address] [place] [address] Blood 12/01/2024 11:4 1 AM CDT 12/01/2024 11:47 AM CDT us Brandon Bradley MD LAB BLOOD ORDERABLES F inal Result [facility] [address] [facility] [place] [address] * XR Chest 1 Vw Portable (if [...] Kristy Avery M.D. TW: DARRIN Report ID: [id number] Reading Location: [id number] Procedure Note Kristy Avery MD - 12/01/2024 [...] Kristy Avery M.D. TW: DARRIN Report ID: [id number] Reading Location: [id number] us Brandon Bradley MD IMG XR PROCEDURES Graciela l Result * Troponin T high-sensitivity series (baseline, 2hr, 4hr, 6hr) (12/01/2024 10:00 AM CDT) Trop T hs 12 <=22 ng/L Comment: Interpretive Data For further hscTnT resources including the diagnostic algorithm and an aid in interpretation, copy and paste this link: https://nrl.testcatalog.org/show/hsTrop Current Interpretive Data last revised 2020. Testing performed by: [facility], [address] [place] [address]., [address] Blood 12/01/2024 10:0 0 AM CDT 12/01/2024 10:04 AM CDT us Brandon Bradley MD LAB BLOOD ORDERABLES F inal Result [facility] [address] [facility] [place] [address] * eGFR (12/01/2024 10:00 AM CDT) eGFR [...] was last reviewed 2021. Testing performed by: [address] [address] Blood 12/01/2024 10:0 0 AM CDT 12/01/2024 10:04 AM CDT us Brandon Bradley MD LAB BLOOD ORDERABLES F inal Result [facility] [address] [facility] [place] [address] * (ABNORMAL) Differential, auto (12/01/2024 10:00 AM CDT) Neutrophil abs 1.45(L) 1.50 - 6.50 K/cumm Comment:Testing performed by : [address] [address] Imm gran abs 0.01 0.00 - 0.10 K/cumm [facility] Comment:Testing performed by : [address] [address] Lymphocyte abs 1.03 0.80 - 3.30 K/cumm [facility] Comment:Testing performed by : [address] [address] Monocyte abs 0.39 0.20 - 0.80 K/cumm [facility] Comment:Testing performed by : [address] [address] Eosinophil abs 0.24 0.00 - 0.50 K/cumm [facility] Comment:Testing performed by : [address] [address] Basophil abs 0.02 0.00 - 0.10 K/cumm [facility] Comment:Testing performed by : [address] [address] Neutrophil pct 46.3 % [facility] Comment: Interpretive Data Percent cell count reference ranges are not reported, since discordance with absolute values may lead to misinterpretation of CBC data. Current Interpretive Data was last revised on 2017. Testing performed by: [address] [address] Imm gran pct 0.3 % [facility] Comment: Interpretive Data Percent cell count reference ranges are not reported, since discordance with absolute values may lead to misinterpretation of CBC data. Current Interpretive Data was last revised on 2017. Testing performed by: [address] [address] Lymphocyte pct 32.8 % [facility] Comment: Interpretive Data Percent cell count reference ranges are not reported, since discordance with absolute values may lead to misinterpretation of CBC data. Current Interpretive Data was last revised on 2017. Testing performed by: [address] [address] Monocyte pct 12.4 % [facility] Comment: Interpretive Data Percent cell count reference ranges are not reported, since discordance with absolute values may lead to misinterpretation of CBC data. Current Interpretive Data was last revised on 2017. Testing performed by: [address] [address] Eosinophil pct 7.6 % [facility] Comment: Interpretive Data Percent cell count reference ranges are not reported, since discordance with absolute values may lead to misinterpretation of CBC data. Current Interpretive Data was last revised on 2017. Testing performed by: [address] [address] Basophil pct 0.6 % [facility] Comment: Interpretive Data Percent cell count reference ranges are not reported, since discordance with absolute values may lead to misinterpretation of CBC data. Current Interpretive Data was last revised on 2017. Testing performed by: [address] [address] Blood 12/01/2024 10:0 0 AM CDT 12/01/2024 10:04 AM CDT us Brandon Bradley MD LAB BLOOD ORDERABLES F inal Result [facility] [address] [facility] [place] [address] * (ABNORMAL) CBC with auto differential (12/01/2024 10:00 AM CDT) [facility] WBC 3.14(L) 3.80 - 9.90 K/cumm Comment:Testing performed by : [address] [address] Hgb 16.0 13.0 - 17.5 g/dL [facility] Comment:Testing performed by : [address], [address] Hct 49.2 38.9 - 50.3 % [facility] Comment:Testing performed by : [address] [address] Plt 235 150 - 400 K/cumm [facility] Comment:Testing performed by : [address], [address] MPV 8.6(L) 9.1 - 12.3 fL [facility] Comment:Testing performed by : [address], [address] RBC 5.54 4.30 - 5.80 M/cumm [facility] Comment:Testing performed by : [address], [address] MCV 88.8 81.3 - 96.4 fL [facility] Comment:Testing performed by : [address] [address] MCH 28.9 27.1 - 33.3 pg [facility] Comment:Testing performed by : [address], [address] MCHC 32.5 32.3 - 35.7 g/dL [facility] Comment:Testing performed by : [address], [address] RDW CV 12.5 11.1 - 14.9 % [facility] Comment:Testing performed by : [address], [address] RDW SD 41.1 35.7 - 48.1 fL [facility] Comment:Testing performed by : [address], [address] NRBC abs 0.00 0.00 - 0.01 K/cumm [facility] Comment:Testing performed by : [address] [address] Blood Venous blood specimen / Unknown 12/01/2024 10:00 AM CDT 12/01/2024 10:04 AM CDT us Brandon Bradley MD LAB BLOOD ORDERABLES F inal Result [facility] [address] [facility] Department [place] [address] * (ABNORMAL) Comprehensive metabolic panel (12/01/2024 10:00 AM CDT) Sodium 138 135 - 145 mmol/L Comment:Testing performed by : [address] [address] Potassium, pl 4.2 3.3 - 4.9 mmol/L [facility] Comment: Hemolyzed; Potassium value may be falsely elevated by as much as 1.0 mmol/L. Suggest redraw and reanalysis. Testing performed by: [address] [address] Chloride 104 97 - 110 mmol/L [facility] Comment:Testing performed by : [address] [address] CO2 23 22 - 32 mmol/L [facility] Comment:Testing performed by : [address] [address] Anion gap 11 2 - 15 mmol/L [facility] Comment:Testing performed by : [address] [address] BUN 7 6 - 25 mg/dL [facility] Comment:Testing performed by : [address] [address] Creatinine 0.99 0.80 - 1.30 mg/dL [facility] Comment:Testing performed by : [address] [address] Glucose 112 70 - 199 mg/dL [facility] Comment: Interpretive [...] was last revised 2022. Testing performed by: [address] [address] Calcium 9.8 8.5 - 10.3 mg/dL [facility] Comment:Testing performed by : [address] [address] Bilirubin, total 0.5 0.1 - 1.2 mg/dL [facility] Comment:Testing performed by : [address] [address] Protein, pl 7.5 6.5 - 8.5 g/dL [facility] Comment:Testing performed by : [address] [address] Albumin 4.2 3.5 - 5.0 g/dL [facility] Comment:Testing performed by : [address] [address] Alk phos 97 40 - 130 Units/L [facility] Comment:Testing performed by : [address] [address] ALT 104(H) 7 - 55 Units/L [facility] Comment:Testing performed by : [address] [address] AST 53(H) 10 - 50 Units/L [facility] Comment: Hemolyzed; result may be falsely elevated Testing performed by: [address] [address] Blood 12/01/2024 10:0 0 AM CDT 12/01/2024 10:04 AM CDT us Brandon Bradley MD LAB BLOOD ORDERABLES F inal Result [facility] [address] [facility] Department of Laboratories [place], [place] [id number] * ECG 12 lead (12/01/2024 9:48 AM CDT) [facility] Ventricular Rate EKG/Min 83 BPM [facility] Atrial Rate 83 BPM [facility] CO-Interval (MSEC) 166 ms [facility] QRS-Interval (MSEC) 78 ms [facility] QT-Interval (MSEC) 364 ms [facility] QTc 427 ms [facility] P Jackson 72 degrees [facility] R Jackson 16 degrees [facility] T Jackson 38 degrees [facility] Diagnosis Normal sinus rhythm Normal ECG When compared with ECG of 22-NOV-2024 01:56, No significant change was found Confirmed by MANUELA SORENSEN M.D. ([id number]) on 12/01/2024 12:15:27 PM [facility] 12/01/2024 9:48 AM CDT 12/01/2024 12:15 PM CDT us Brandon Bradley MD ECG ORDERABLES Final Result [facility] * eGFR (11/29/2024 5:50 PM CDT) eGFR [...] was last reviewed 2021. Testing performed by: [facility], [address] [place] [address]., [address] Blood 11/29/2024 5:50 PM CDT 11/29/2024 6:08 PM CDT us Aj Restrepo Jr., MD LAB BLOOD ORDERABLES Fi nal Result [facility] [address] [facility] Department of Laboratories [place], [place] [id number] * Differential, auto (11/29/2024 5:50 PM CDT) Neutrophil abs 1.65 1.50 - 6.50 K/cumm Comment:Testing performed by : [address] [address] Imm gran abs 0.01 0.00 - 0.10 K/cumm [facility] Comment:Testing performed by : [address] [address] Lymphocyte abs 1.43 0.80 - 3.30 K/cumm [facility] Comment:Testing performed by : [address] [address] Monocyte abs 0.45 0.20 - 0.80 K/cumm [facility] Comment:Testing performed by : [address] [address] Eosinophil abs 0.26 0.00 - 0.50 K/cumm [facility] Comment:Testing performed by : [address] [address] Basophil abs 0.01 0.00 - 0.10 K/cumm [facility] Comment:Testing performed by : [address] [address] Neutrophil pct 43.3 % [facility] Comment: Interpretive Data Percent cell count reference ranges are not reported, since discordance with absolute values may lead to misinterpretation of CBC data. Current Interpretive Data was last revised on 2017. Testing performed by: [address] [address] Imm gran pct 0.3 % [facility] Comment: Interpretive Data Percent cell count reference ranges are not reported, since discordance with absolute values may lead to misinterpretation of CBC data. Current Interpretive Data was last revised on 2017. Testing performed by: [address] [address] Lymphocyte pct 37.5 % [facility] Comment: Interpretive Data Percent cell count reference ranges are not reported, since discordance with absolute values may lead to misinterpretation of CBC data. Current Interpretive Data was last revised on 2017. Testing performed by: [address] [address] Monocyte pct 11.8 % [facility] Comment: Interpretive Data Percent cell count reference ranges are not reported, since discordance with absolute values may lead to misinterpretation of CBC data. Current Interpretive Data was last revised on 2017. Testing performed by: [address] [address] Eosinophil pct 6.8 % [facility] Comment: Interpretive Data Percent cell count reference ranges are not reported, since discordance with absolute values may lead to misinterpretation of CBC data. Current Interpretive Data was last revised on 2017. Testing performed by: [address] [address] Basophil pct 0.3 % [facility] Comment: Interpretive Data Percent cell count reference ranges are not reported, since discordance with absolute values may lead to misinterpretation of CBC data. Current Interpretive Data was last revised on 2017. Testing performed by: [address] [address] Blood 11/29/2024 5:50 PM CDT 11/29/2024 6:08 PM CDT us Aj Restrepo Jr., MD LAB BLOOD ORDERABLES nal Result [facility] [address] [facility] Department of Laboratories [place], [place] [id number] * (ABNORMAL) CBC with auto differential (11/29/2024 5:50 PM CDT) WBC 3.81 3.80 - 9.90 K/[facility] Comment:Testing performed by : [address] [address] Hgb 15.3 13.0 - 17.5 g/dL [facility] Comment:Testing performed by : [address], [address] Hct 46.5 38.9 - 50.3 % [facility] Comment:Testing performed by : [address] [address] Plt 255 150 - 400 K/cumm [facility] Comment:Testing performed by : [address] [address] MPV 8.4(L) 9.1 - 12.3 fL [facility] Comment:Testing performed by : [address] [address] RBC 5.24 4.30 - 5.80 M/cumm [facility] Comment:Testing performed by : [address], [address] MCV 88.7 81.3 - 96.4 fL [facility] Comment:Testing performed by : [address], [address] MCH 29.2 27.1 - 33.3 pg [facility] Comment:Testing performed by : [address], [address] MCHC 32.9 32.3 - 35.7 g/dL [facility] Comment:Testing performed by : [address], [address] RDW CV 12.5 11.1 - 14.9 % [facility] Comment:Testing performed by : [address], [address] RDW SD 40.9 35.7 - 48.1 fL [facility] Comment:Testing performed by : [address] [address] NRBC abs 0.00 0.00 - 0.01 K/cumm [facility] Comment:Testing performed by : [address] [address] Blood 11/29/2024 5:50 PM CDT 11/29/2024 6:08 PM CDT Aj Restrepo Jr., MD LAB BLOOD ORDERABLES Fi nal Result [facility] [address] [facility] Department [place] [address] * (ABNORMAL) Comprehensive metabolic panel (11/29/2024 5:50 PM CDT) Sodium 138 135 - 145 mmol/L Comment:Testing performed by : [address] [address] Potassium, pl 4.2 3.3 - 4.9 mmol/L [facility] Comment: Hemolyzed; Potassium value may be falsely elevated by as much as 1.0 mmol/L. Suggest redraw and reanalysis. Testing performed by: [address] [address] Chloride 103 97 - 110 mmol/L [facility] Comment:Testing performed by : [address] [address] CO2 25 22 - 32 mmol/L [facility] Comment:Testing performed by : [address] [address] Anion gap 10 2 - 15 mmol/L [facility] Comment:Testing performed by : [address] [address] BUN 10 6 - 25 mg/dL [facility] Comment:Testing performed by : [address] [address] Creatinine 1.17 0.80 - 1.30 mg/dL [facility] Comment:Testing performed by : [address] [address] Glucose 103 70 - 199 mg/dL [facility] Comment: Interpretive Data Fasting glucose >/= [...] was last revised 2022. Testing performed by: [facility], [address] [place] [address]., [address] Calcium 10.1 8.5 - 10.3 mg/dL [facility] Comment:Testing performed by : [address] [address] Bilirubin, total 0.5 0.1 - 1.2 mg/dL [facility] Comment:Testing performed by : [address] [address] Protein, pl 7.3 6.5 - 8.5 g/dL [facility] Comment:Testing performed by : [address] [address] Albumin 4.1 3.5 - 5.0 g/dL [facility] Comment:Testing performed by : [address] [address] Alk phos 87 40 - 130 Units/L [facility] Comment:Testing performed by : [address] [address] ALT 90(H) 7 - 55 Units/L [facility] Comment:Testing performed by : [address] [address] AST 40 10 - 50 Units/L [facility] Comment: Hemolyzed; result may be falsely elevated Testing performed by: [address] [address] Blood 11/29/2024 5:50 PM CDT 11/29/2024 6:08 PM CDT us Aj Restrepo Jr., MD LAB BLOOD ORDERABLES Fi nal Result [facility] [address] [facility] Department of Laboratories [place], [place] [id number] * ECG 12 lead (11/22/2024 1:56 AM CDT) Ventricular Rate EKG/Min 90 BPM [facility] Atrial Rate 90 BPM [facility] CO-Interval (MSEC) 170 ms [facility] QRS-Interval (MSEC) 82 ms [facility] QT-Interval (MSEC) 356 ms [facility] QTc 435 ms [facility] P Jackson 62 degrees [facility] R Jackson 5 degrees [facility] T Jackson 35 degrees [facility] Diagnosis Normal sinus rhythm Possible Left atrial enlargement Borderline ECG When compared with ECG of 19-NOV-2024 01:32, No significant change was found Confirmed by KOJO HARRIS M.D. ([id number]) on 11/26/2024 11:12:53 AM [facility] 11/22/2024 1:56 AM CDT 11/26/2024 11:12 AM CDT us Ligia Woods MD ECG ORDERABLES Final Re sult Performing Organization Address City/[facility]/ZIP Co de Phone Number [facility] * Troponin T high-sensitivity 2-hour (11/19/2024 4:34 AM CDT) Trop T hs 12 <=22 ng/L Comment: Interpretive Data For further hscTnT resources including the diagnostic algorithm and an aid in interpretation, copy and paste this link: https://nrl.testcatalog.org/show/hsTrop Current Interpretive Data last revised 2020. Testing performed by: [address] [address] Trop T hs delta -2 ng/L [facility] Comment:Testing performed by : [address] [address] Trop T hs interp Insignificant [facility] Comment:Testing performed by : [address] [address] Blood 11/19/2024 4:34 AM CDT 11/19/2024 4:56 AM CDT us Aj Restrepo Jr., MD LAB BLOOD ORDERABLES Fi nal Result Performing Organization Address City/[facility]/ZIP Co de Phone Number [facility] [address] [facility] [place] [address] * CT Chest Abdomen Pelvis WO Contrast (11/19/2024 2:53 AM CDT) Anatomical Region Laterality Modality Body N/A Computed Tomogra phy 11/19/2024 3:07 AM CDT Narrative 11/19/2024 3:13 AM CDT EXAM DESCRIPTION: CT CHEST ABDOMEN PELVIS WO CONTRAST REASON FOR STUDY: persistent hiccoughs for 4 days, now sob, throat pain and abd pain Pt c/o trouble breathing when laying down. Pt reports Hx of [place] in October 2024. Pt also reports hiccups [...] Wiliam Roper M.D. AR: ROBY Report ID: [id number] Reading Location: [id number] Procedure Note Wiliam Roper MD - 11/19/2024 EXAM DESCRIPTION: CT CHEST ABDOMEN PELVIS WO CONTRAST REASON FOR STUDY: persistent hiccoughs for 4 days, now sob, throatpain and abd pain Pt c/o trouble breathing when laying down. Pt reports Hx of [place] in October2024. Pt also reports hiccups x [...] Wiliam Roper M.D. AR: ROBY Report ID: [id number] Reading Location: [place] [address] Aj Restrepo Jr., MD IM CT PROCEDURES Final Result * CT Neck [...] when laying down. Pt reports Hx of [place] in October 2024. Pt also reports hiccups [...] Wiliam Roper M.D. AR: ROBY Report ID: [id number] Reading Location: [place] [address] Procedure Note Wiliam Roper MD - 11/19/2024 EXAM DESCRIPTION: CT SOFT TISSUE NECK W CONTRAST REASON FOR STUDY: Soft tissue infection suspected, neck, xray done Pt c/o trouble breathing when laying down. Pt reports Hx of [place] in October2024. Pt also reports hiccups x [...] Wiliam Roper M.D. AR: ROBY Report ID: [id number] Reading Location: [place] [address] us Aj Restrepo Jr., MD IMG CT PROCEDURES Final Result * D-dimer, quantitative [...] 68, VTE cut-off 680 ng/ml FEU. References; Schouten HT et al. Brit Med J. 2013;346:f2492. Rajendra et al. Annals Int Med. 2015;163:701-11. Current interpretive data was last revised on 2019. Testing performed by: [facility], [address] [place] [address]., [address] Blood 11/19/2024 2:08 AM CDT 11/19/2024 2:15 AM CDT Aj Restrepo Jr., MD LAB BLOOD ORDERABLES Fi nal Result [facility] [address] [facility] [place] [address] * XR Chest 1 Vw Portable (if patient condition/safety warrant portable) (11/19/2024 1:55 AM CDT) Anatomical Region Laterality Modality Body, Chest N/A Computed Radiogr aphy 11/19/2024 1:56 AM CDT Narrative 11/19/2024 1:59 AM CDT EXAM DESCRIPTION: XR CHEST 1 VIEW REASON FOR STUDY: Shortness of breath Pt c/o trouble breathing when laying down. Pt reports Hx of [place] in October 2024. Pt also reports hiccups [...] Wiliam Roper M.D. AR: ROBY Report ID: [id number] Reading Location: [id number] Procedure Note Wiliam Roper MD - 11/19/2024 EXAM DESCRIPTION: XR CHEST 1 VIEW REASON FOR STUDY: Shortness of breath Pt c/o trouble breathing when laying down. Pt reports Hx of [place] in October2024. Pt also reports hiccups x [...] Wiliam Roper M.D. AR: ROBY Report ID: [id number] Reading Location: [id number] Aj Restrepo Jr., MD IMG XR PROCEDURES Final Result * Troponin T high-sensitivity series (baseline, 2hr, 4hr, 6hr) (11/19/2024 1:42 AM CDT) Trop T hs 14 <=22 ng/L Comment: Interpretive Data For further hscTnT resources including the diagnostic algorithm and an aid in interpretation, copy and paste this link: https://nrl.testcatalog.org/show/hsTrop Current Interpretive Data last revised 2020. Testing performed by: [facility], [address] [place] [address]., [address] Blood 11/19/2024 1:42 AM CDT 11/19/2024 2:03 AM CDT Aj Restrepo Jr., MD LAB BLOOD ORDERABLES Fi nal Result [facility] [address] [facility] Department [place] [address] * eGFR (11/19/2024 1:42 AM CDT) eGFR 75 >=60 mL/min/1. 73 m2 Comment: [...] was last reviewed 2021. Testing performed by: [address] [address] Blood 11/19/2024 1:42 AM CDT 11/19/2024 2:03 AM CDT us Aj Restrepo Jr., MD LAB BLOOD ORDERABLES Fi nal Result [facility] [address] [facility] [place] [address] * Differential, auto (11/19/2024 1:42 AM CDT) Neutrophil abs 3.39 1.50 - 6.50 K/[facility] Comment:Testing performed by : [address] [address] Imm gran abs 0.02 0.00 - 0.10 K/cumm [facility] Comment:Testing performed by : [address] [address] Lymphocyte abs 1.64 0.80 - 3.30 K/cumm [facility] Comment:Testing performed by : [address] [address] Monocyte abs 0.72 0.20 - 0.80 K/cumm [facility] Comment:Testing performed by : [address] [address] Eosinophil abs 0.23 0.00 - 0.50 K/cumm [facility] Comment:Testing performed by : [address] [address] Basophil abs 0.03 0.00 - 0.10 K/cumm [facility] Comment:Testing performed by : [address] [address] Neutrophil pct 56.3 % [facility] Comment: Interpretive Data Percent cell count reference ranges are not reported, since discordance with absolute values may lead to misinterpretation of CBC data. Current Interpretive Data was last revised on 2017. Testing performed by: [address] [address] Imm gran pct 0.3 % [facility] Comment: Interpretive Data Percent cell count reference ranges are not reported, since discordance with absolute values may lead to misinterpretation of CBC data. Current Interpretive Data was last revised on 2017. Testing performed by: [address] [address] Lymphocyte pct 27.2 % [facility] Comment: Interpretive Data Percent cell count reference ranges are not reported, since discordance with absolute values may lead to misinterpretation of CBC data. Current Interpretive Data was last revised on 2017. Testing performed by: [address] [address] Monocyte pct 11.9 % [facility] Comment: Interpretive Data Percent cell count reference ranges are not reported, since discordance with absolute values may lead to misinterpretation of CBC data. Current Interpretive Data was last revised on 2017. Testing performed by: [address] [address] Eosinophil pct 3.8 % [facility] Comment: Interpretive Data Percent cell count reference ranges are not reported, since discordance with absolute values may lead to misinterpretation of CBC data. Current Interpretive Data was last revised on 2017. Testing performed by: [address] [address] Basophil pct 0.5 % [facility] Comment: Interpretive Data Percent cell count reference ranges are not reported, since discordance with absolute values may lead to misinterpretation of CBC data. Current Interpretive Data was last revised on 2017. Testing performed by: [address] [address] Blood 11/19/2024 1:42 AM CDT 11/19/2024 2:03 AM CDT us Aj Restrepo Jr., MD LAB BLOOD ORDERABLES Fi nal Result [facility] [address] [facility] Department of Laboratories [place], [place] [id number] * Pro B-type natriuretic peptide (11/19/2024 1:42 [...] as advanced age. - References: 1. Gaby NAQVI et.al. Eur Heart J. 2006:27:330-337. 2. Sophia RW, Riya MONTOYA. J. AM Marifer Cardiol: Cardiovasc Imag. 2009;2: 216- 225. Interpretive Data Last Revised Date: 2018. Testing performed by: [facility], [address] [place] [address]., [address] Blood 11/19/2024 1:42 AM CDT 11/19/2024 2:03 AM CDT us Aj Restrepo Jr., MD LAB BLOOD ORDERABLES Fi nal Result [facility] [address] [facility] [place] [address] * Urinalysis reflex to microscopic and culture Urine, clean voided (11/19/2024 1:42 AM CDT) Color, ur Straw Yellow Comment:Testing performed by : [address] [address] Clarity, ur Clear Clear [facility] Comment:Testing performed by : [address] [address] Specific gravity, ur 1.007 1.003 - 1.030 [facility] Comment:Testing performed by : [address] [address] pH, urine 6.5 [facility] Comment: Interpretive Data U rine pH is affected by diet, medications, systemic acid-base disturbances, and renal tubular function. pH may affect urinary stone formation. For example, urine pH below 6.0 may help reduce the tendency for calcium phosphate stones and pH greater than 6.0 may reduce the tendency for uric acid stone formation. Source: [employer] Current Interpretive Data was last revised on 2017 Testing performed by: [address] [address] Protein, ur ql Negative Negative [facility] Comment:Testing performed by : [address] [address] Glucose, ur ql Negative Negative [facility] Comment:Testing performed by : [address] [address] Ketones, ur Negative Negative [facility] Comment:Testing performed by : [address] [address] Bilirubin, ur Negative Negative [facility] Comment:Testing performed by : [address] [address] Blood, ur Negative Negative [facility] Comment:Testing performed by : [address] [address] Urobilinogen, ur <2.0 <2.0 mg/dL [facility] Comment:Testing performed by : [address] [address] Nitrite, ur Negative Negative [facility] Comment:Testing performed by : [address] [address] Leukocyte esterase, ur Negative Negative [facility] Comment:Testing performed by : [address] [address] UA reflex comment Reflex conditions for microscopic UA and culture not met. [facility] Comment:Testing performed by : [address] [address] Urine, clean voided 11/19/2024 1:42 AM CDT 11/19/2024 2:03 AM CDT us Aj Restrepo Jr., MD LAB MICROBIOLOGY - GENE RAL ORDERABLES Final Result [facility] [address] [facility] [place] [address] * (ABNORMAL) CBC with auto differential (11/19/2024 1:42 AM CDT) WBC 6.03 3.80 - 9.90 K/[facility] Comment:Testing performed by : [address] [address] Hgb 15.5 13.0 - 17.5 g/dL [facility] Comment:Testing performed by : [address] [address] Hct 46.8 38.9 - 50.3 % [facility] Comment:Testing performed by : [address] [address] Plt 238 150 - 400 K/cumm [facility] Comment:Testing performed by : [address] [address] MPV 8.5(L) 9.1 - 12.3 fL [facility] Comment:Testing performed by : [address] [address] RBC 5.32 4.30 - 5.80 M/cumm [facility] Comment:Testing performed by : [address] [address] MCV 88.0 81.3 - 96.4 fL [facility] Comment:Testing performed by : [address] [address] MCH 29.1 27.1 - 33.3 pg [facility] Comment:Testing performed by : [address] [address] MCHC 33.1 32.3 - 35.7 g/dL [facility] Comment:Testing performed by : [address] [address] RDW CV 12.7 11.1 - 14.9 % [facility] Comment:Testing performed by : [address], [address] RDW SD 40.9 35.7 - 48.1 fL [facility] Comment:Testing performed by : [address] [address] NRBC abs 0.00 0.00 - 0.01 K/cumm [facility] Comment:Testing performed by : [address], [address] Blood 11/19/2024 1:42 AM CDT 11/19/2024 2:03 AM CDT us Aj Restrepo Jr., MD LAB BLOOD ORDERABLES Fi nal Result Performing Organization Address City/[facility] Co de Phone Number [address] [place] [address] * Magnesium (11/19/2024 1:42 AM CDT) Magnesium 2.4 1.4 - 2.5 mg/dL Comment:Testing performed by : [address] [address] Blood 11/19/2024 1:42 AM CDT 11/19/2024 2:03 AM CDT Aj Restrepo Jr., MD LAB BLOOD ORDERABLES Fi nal Result Performing Organization Address City/[facility] Co de Phone Number [id number] [employer] [place] [address] * (ABNORMAL) Comprehensive metabolic panel (11/19/2024 1:42 AM CDT) Sodium 138 135 - 145 mmol/L Comment:Testing performed by : [address] [address] Potassium, pl 3.8 3.3 - 4.9 mmol/L [facility] Comment: Hemolyzed; Potassium value may be falsely elevated by as much as 1.0 mmol/L. Suggest redraw and reanalysis. Testing performed by: [address] [address], [place]., [address] Chloride 103 97 - 110 mmol/L [facility] Comment:Testing performed by : [address], [place]., [address] CO2 24 22 - 32 mmol/L [facility] Comment:Testing performed by : [address], [place]., [address] Anion gap 11 2 - 15 mmol/L [facility] Comment:Testing performed by : [address] [address] BUN 15 6 - 25 mg/dL [facility] Comment:Testing performed by : [address], [place]., [address] Creatinine 1.23 0.80 - 1.30 mg/dL [facility] Comment:Testing performed by : [address] [address] Glucose 99 70 - 199 mg/dL [facility] Comment: Interpretive Data Fasting glucose >/= 126 [...] was last revised 2022. Testing performed by: [address] [address] Calcium 9.7 8.5 - 10.3 mg/dL [facility] Comment:Testing performed by : [address], [facility] [place] [address] Bilirubin, total 0.8 0.1 - 1.2 mg/dL [facility] Comment:Testing performed by : [address], [address] Protein, pl 7.3 6.5 - 8.5 g/dL [facility] Comment:Testing performed by : [address], [address] Albumin 4.2 3.5 - 5.0 g/dL [facility] Comment:Testing performed by : [address], [address] Alk phos 84 40 - 130 Units/L [facility] Comment:Testing performed by : [address], [address] ALT 90(H) 7 - 55 Units/L [facility] Comment:Testing performed by : [address], [address] AST 59(H) 10 - 50 Units/L [facility] Comment: Hemolyzed; result may be falsely elevated Testing performed by: [address] [address] Blood 11/19/2024 1:42 AM CDT 11/19/2024 2:03 AM CDT us Aj Restrepo Jr., MD LAB BLOOD ORDERABLES Fi nal Result Performing Organization Address City/State/[facility] Co de Phone Number [facility] [address] [facility] Department of Laboratories [place], [place] [id number] * ECG 12 lead (11/19/2024 1:32 AM CDT) Ventricular Rate EKG/Min 90 BPM [facility] Atrial Rate 90 BPM [facility] CO-Interval (MSEC) 170 ms [facility] QRS-Interval (MSEC) 82 ms [facility] QT-Interval (MSEC) 352 ms [facility] QTc 430 ms [facility] P Jackson 64 degrees [facility] R [place] 7 degrees [facility] T [place] 33 degrees [facility] Diagnosis Normal sinus rhythm Possible Left atrial enlargement Borderline ECG When compared with ECG of 17-NOV-2024 18:51, Nonspecific T wave abnormality has replaced inverted T waves in Inferior leads Confirmed by KOJO HARRIS M.D. ([id number]) on 11/19/2024 7:38:22 PM [facility] [employer] 11/19/2024 1:32 AM CDT 11/19/2024 7:38 PM CDT us Aj Restrepo Jr., MD ECG ORDERABLES Final R esult [facility] [employer] [facility] * XR Chest PA Lateral 2 Views (11/17/2024 7:12 PM CDT) Anatomical Region Laterality Modality Body, Chest N/A Computed Radiogr aphy 11/17/2024 7:36 PM CDT Narrative 11/17/2024 7:42 PM CDT EXAM DESCRIPTION: XR CHEST PA LATERAL 2 VIEWS REASON FOR STUDY: chest pain Pt reports he was seen at [facility] urgent care yesterday for hiccups, pt was seen in this ED this AM for hiccups and was given Reglan 10 mg IV that stopped his hiccups, pt was prescribed Reglan 10 mg Q6H, he took a dose this AM but has not had any since. Pt notes hiccups returned 20 minutes [employer]. Pt also endorsing chest pain at this [...] Jonel Ann M.D. MF: CHRISTOPHER Report ID: [id number] Reading Location: [id number] Procedure Note Jonel Ann, - 11/17/2024 EXAM DESCRIPTION: XR CHEST PA LATERAL 2 VIEWS REASON FOR STUDY: chest pain Pt reports he was seen at [facility] urgent care yesterday forhiccups, pt was seen in this ED this AM for hiccups and was given Reglan 10 mg IVthat stopped his hiccups, pt was prescribed Reglan 10 mg Q6H, he took a dosethis AM but has not had any since. Pt notes hiccups returned 20 minutes [employer].Pt also endorsing chest pain at this time. [...] Jonel Ann M.D. MF: CHRISTOPHER Report ID: [id number] Reading Location: [id number] Senia Myers Nba [employer]PER[employer] IMG XR PROCEDURES Final Result * ECG 12 lead (11/17/2024 6:51 PM CDT) Ventricular Rate EKG/Min 87 BPM [facility] Atrial Rate 87 BPM [facility] CO-Interval (MSEC) 164 ms [facility] QRS-Interval (MSEC) 80 ms [facility] QT-Interval (MSEC) 358 ms [facility] QTc 430 ms [facility] P Jackson 59 degrees [facility] R [place] 43 degrees [facility] T Jackson 1 degrees [facility] Diagnosis Normal sinus rhythm Normal ECG When compared with ECG of 16-NOV-2024 23:43, Inverted T waves have replaced nonspecific T wave abnormality in Inferior leads Confirmed by JONEL MORENO M.D. ([id number]) on 11/18/2024 12:51:29 PM [facility] 11/17/2024 6:51 PM CDT 11/18/2024 12:51 PM CDT us Senia Arango [employer] ECG ORDERABLES Final Re sult [facility] * Troponin T high-sensitivity series (baseline, 2hr, 4hr, 6hr) (11/17/2024 6:47 PM CDT) Trop T hs 19 <=22 ng/L Comment: Interpretive Data For further hscTnT resources including the diagnostic algorithm and an aid in interpretation, copy and paste this link: https://nrl.testcatalog.org/show/hsTrop Current Interpretive Data last revised 2020. Testing performed by: [facility], [address] [place] [address]., [address] Blood 11/17/2024 6:47 PM CDT 11/17/2024 6:50 PM CDT us Senia Arango [employer] LAB BLOOD ORDERABLES Fin al Result [facility] [place] [address] * eGFR (11/17/2024 6:47 PM CDT) eGFR [...] Inclusion of Race in Diagnosing Kidney Disease, MARILYNSN 2020). The CKD-EPI equation should not be used for patients with unstable renal function and has not been validated in children and those over 70. Current interpretive data was last reviewed 2021. Testing performed by: [address] [address] Blood 11/17/2024 6:47 PM CDT 11/17/2024 6:50 PM CDT us Senia Arango [employer] LAB BLOOD ORDERABLES Fin al Result [facility] [address] [facility] Department [place] [address] * Differential, auto (11/17/2024 6:47 PM CDT) Neutrophil abs 2.31 1.50 - 6.50 K/cumm Comment:Testing performed by : [address] [address] Imm gran abs 0.01 0.00 - 0.10 K/cumm [facility] Comment:Testing performed by : [address] [address] Lymphocyte abs 1.85 0.80 - 3.30 K/cumm [facility] Comment:Testing performed by : [address] [address] Monocyte abs 0.62 0.20 - 0.80 K/cumm [facility] Comment:Testing performed by : [address] [address] Eosinophil abs 0.27 0.00 - 0.50 K/cumm [facility] Comment:Testing performed by : [address] [address] Basophil abs 0.02 0.00 - 0.10 K/cumm [facility] Comment:Testing performed by : [address] [address] Neutrophil pct 45.5 % [facility] Comment: Interpretive Data Percent cell count reference ranges are not reported, since discordance with absolute values may lead to misinterpretation of CBC data. Current Interpretive Data was last revised on 2017. Testing performed by: [address] [address] Imm gran pct 0.2 % [facility] Comment: Interpretive Data Percent cell count reference ranges are not reported, since discordance with absolute values may lead to misinterpretation of CBC data. Current Interpretive Data was last revised on 2017. Testing performed by: [address] [address] Lymphocyte pct 36.4 % [facility] Comment: Interpretive Data Percent cell count reference ranges are not reported, since discordance with absolute values may lead to misinterpretation of CBC data. Current Interpretive Data was last revised on 2017. Testing performed by: [address] [address] Monocyte pct 12.2 % [facility] Comment: Interpretive Data Percent cell count reference ranges are not reported, since discordance with absolute values may lead to misinterpretation of CBC data. Current Interpretive Data was last revised on 2017. Testing performed by: [address] [address] Eosinophil pct 5.3 % [facility] Comment: Interpretive Data Percent cell count reference ranges are not reported, since discordance with absolute values may lead to misinterpretation of CBC data. Current Interpretive Data was last revised on 2017. Testing performed by: [address] [address] Basophil pct 0.4 % [facility] Comment: Interpretive Data Percent cell count reference ranges are not reported, since discordance with absolute values may lead to misinterpretation of CBC data. Current Interpretive Data was last revised on 2017. Testing performed by: [address] [address] Blood 11/17/2024 6:47 PM CDT 11/17/2024 6:50 PM CDT us Senia Arango NP LAB BLOOD ORDERABLES Fin al Result [facility] [address] [place] [address] * (ABNORMAL) CBC with auto differential (11/17/2024 6:47 PM CDT) [facility] WBC 5.08 3.80 - 9.90 K/cumm Comment:Testing performed by : [address] [address] Hgb 15.5 13.0 - 17.5 g/dL [facility] Comment:Testing performed by : [address] [address] Hct 47.3 38.9 - 50.3 % [facility] Comment:Testing performed by : [address] [address] Plt 245 150 - 400 K/cumm [facility] Comment:Testing performed by : [address] [address] MPV 8.5(L) 9.1 - 12.3 fL [facility] Comment:Testing performed by : [address] [address] RBC 5.33 4.30 - 5.80 M/cumm [facility] Comment:Testing performed by : [address] [address] MCV 88.7 81.3 - 96.4 fL [facility] Comment:Testing performed by : [address] [address] MCH 29.1 27.1 - 33.3 pg [facility] Comment:Testing performed by : [address] [address] MCHC 32.8 32.3 - 35.7 g/dL [facility] Comment:Testing performed by : [address] [address] RDW CV 12.8 11.1 - 14.9 % [facility] Comment:Testing performed by : [address] [address] RDW SD 41.0 35.7 - 48.1 fL [facility] Comment:Testing performed by : [address], [address] NRBC abs 0.00 0.00 - 0.01 K/cumm [facility] Comment:Testing performed by : [address] [address] Blood Venous blood specimen / Unknown 11/17/2024 6:47 PM CDT 11/17/2024 6:50 PM CDT Senia Arango [employer] LAB BLOOD ORDERABLES Fin al Result [facility] [address] [facility] [place] [address] * (ABNORMAL) Comprehensive metabolic panel (11/17/2024 6:47 PM CDT) Sodium 140 135 - 145 mmol/L Comment:Testing performed by : [address] [address] Potassium, pl 4.2 3.3 - 4.9 mmol/L [facility] Comment:Testing performed by : [address] [address] Chloride 105 97 - 110 mmol/L [facility] Comment:Testing performed by : [address] [address] CO2 26 22 - 32 mmol/L [facility] Comment:Testing performed by : [address] [address] Anion gap 9 2 - 15 mmol/L [facility] Comment:Testing performed by : [address] [address] BUN 10 6 - 25 mg/dL [facility] Comment:Testing performed by : [address] [address] Creatinine 1.12 0.80 - 1.30 mg/dL [facility] Comment:Testing performed by : [address] [address] Glucose 122 70 - 199 mg/dL [facility] [...] was last revised 2022. Testing performed by: [address] [address] Calcium 10.0 8.5 - 10.3 mg/dL [facility] Comment:Testing performed by : [address] [address] Bilirubin, total 0.5 0.1 - 1.2 mg/dL [facility] Comment:Testing performed by : [address] [address] Protein, pl 7.2 6.5 - 8.5 g/dL [facility] Comment:Testing performed by : [address] [address] Albumin 4.2 3.5 - 5.0 g/dL [facility] Comment:Testing performed by : [address] [address] Alk phos 84 40 - 130 Units/L [facility] Comment:Testing performed by : [address] [address] ALT 88(H) 7 - 55 Units/L [facility] Comment:Testing performed by : [address] [address] AST 55(H) 10 - 50 Units/L [facility] Comment:Testing performed by : [address] [address] Blood 11/17/2024 6:47 PM CDT 11/17/2024 6:50 PM CDT us Senia Arango NP LAB BLOOD ORDERABLES Fin al Result [facility] [address] [facility] [place] [address] * ECG 12 lead (11/16/2024 11:43 PM CDT) Ventricular Rate EKG/Min 84 BPM [facility] Atrial Rate 84 BPM [facility] CO-Interval (MSEC) 180 ms [facility] QRS-Interval (MSEC) 80 ms [facility] QT-Interval (MSEC) 370 ms [facility] QTc 437 ms [facility] P Jackson 67 degrees [facility] R [place] 4 degrees [facility] T Jackson 27 degrees [facility] Diagnosis Normal sinus rhythm Possible Left atrial enlargement Borderline ECG When compared with ECG of 10-OCT-2024 10:02, No significant change was found Confirmed by MIKIE CHO M.D. ([id number]) on 11/17/2024 3:22:09 PM [facility] 11/16/2024 11:4 3 PM CDT 11/17/2024 3:22 PM CDT Xiomara Chavis [employer]PER[employer] ECG ORDERABLES Final Resu lt [facility] from Last 3 Months [place] [address] [employer] [facility] [place] [address] [employer] [facility] MEDICARE ADVANTAGE Advance Directives For more information, please contact: [phone] * Full Code (Latest Code Status on File) Date Activated Date Inactivated Comments 10/10/2024 1:20 PM 10/11/2024 6:54 PM * Full Code Date Activated Date Inactivated Comments 10/10/2024 12:44 PM 10/10/2024 1:20 PM Care Teams Validation Consultant Relationship Specialty Start Date End Date Momo Hameed MD [address] [address] PCP - General Family Medicine 12/01/24
[2025-01-15 13:31] VITALS: BP 130/78; PULSE 91; RESP 16; TEMP 36.5; O2SAT 100
--- NOTE | 2025-01-15 14:02 | PC.NURSE ---
No response when called for in lobby.
--- OUTSIDE RECORDS SUMMARY | 2025-01-15 14:17 | XMS_ITS | Referral Summary ---
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 Name Role Phone Momo Hameed MD Primary Care Provider [phone] Encounters Date Type Department Care Team Description 01/14/20 7:36 PM CDT - 01/14/20 25 8:57 PM CDT Emergency [facility] Emergency Department [address] [place] [phone] Hiccups (Primary Dx); Calculus of gallbladder without cholecystitis without obstruction; Biliary colic Discharge Disposition: Discharge to home or self care 01/04/20 25 Telephone [facility] G[facility]enterology at [address] [place] [phone] Cynthia Martinez NP 12/27/19 25 Telephone [facility] Cardiology [address] [place] [address] [address] [place] [phone] Edgardo Beth MD 12/18/19 25 Documentation [facility] G[facility]enterology at [address] [place] [phone] Clara Ivy DNP Hiccups 12/18/19 25 Telephone [facility] G[facility]enterology at [address] [place] [phone] Cynthia Martinez NP 12/15/19 25 4:49 PM CDT - 12/15/19 25 7:37 PM CDT Emergency [facility] Emergency Department [address] [place] [phone] Medication refill (Primary Dx) Discharge Disposition: Discharge to home or self care 12/14/19 5:39 PM CDT - 12/14/19 5:42 PM CDT Emergency [facility] Emergency Department [address] [place] [address] Discharge Disposition: Left without being seen 12/07/19 Results Follow-Up [facility] G[facility] at [address] [phone] Raghavendra Coronado MD Surgical pathology 12/07/19 2:45 PM CDT Office Visit [facility] Cardiology [address] [place] [phone] Edgardo Beth MD NSTEMI (non-ST elevated myocardial infarction) (HCC) (Primary Dx) 12/05/19 12:15 PM CDT Anesthesia Event [facility] [address] [place] [address] Moreno Alejandra MD 12/05/19 12:00 PM CDT - 12/05/19 25 12:30 PM CDT Surgery [facility] [address] [place] [address] Raghavendra Coronado MD ESOPHAGOGASTRODUODENOSCOPY BALLOON DILATION <30MM 12/05/19 10:38 AM CDT - 12/05/19 25 1:20 PM CDT Hospital Encounter [facility] [address] [place] [address] Raghavendra Coronado MD Hiccups; Dysphagia, unspecified type Discharge Disposition: Discharge to home or self care 12/04/19 Orders Only [facility] at [address] [phone] Raghavendra Coronado MD Hiccups (Primary Dx); Dysphagia, unspecified type 12/02/19 25 10:02 AM CDT - 12/02/19 25 12:53 PM CDT Emergency [facility] Emergency Department [address] [place] [address] Brandon Bradley MD Syncope, unspecified syncope type (Primary Dx) Discharge Disposition: Discharge to home or self care 12/01/19 Telephone [facility]iology [address] [facility] [address] [place] [phone] Edgardo Beth MD Cardiac Clearance 11/30/19 6:34 PM CDT - 11/30/19 8:21 PM CDT Emergency [facility] Emergency Department [address] [place] [address] Aj Restrepo Jr., MD Intractable hiccups (Primary Dx); Dysphagia, unspecified type; Gastroesophageal reflux disease, unspecified whether esophagitis present Discharge Disposition: Discharge to home or self care 11/30/19 Telephone [facility] at [address] [phone] Moshe Swift 11/23/19 2:46 AM CDT - 11/23/19 3:54 AM CDT [facility] Emergency Department [address] [place] [address] Ligia Woods MD Intractable hiccups (Primary Dx) Discharge Disposition: Discharge to home or self care 11/23/19 10:00 AM CDT Office Visit [facility] G[facility]enterology at [address] [phone] Cynthia Martinez NP Hiccups (Primary Dx); Dysphagia, unspecified type 11/21/19 9:22 PM CDT - 11/22/19 12:33 AM CDT Emergency [facility] Emergency Department [address] [place] [address] Edin Moncada DO Anxiety (Primary Dx) Discharge Disposition: Discharge to home or self care 11/20/19 9:38 PM CDT - 11/20/19 11:28 PM CDT Emergency [facility] Emergency Department [address] [place] [address] Aj Restrepo Jr., MD Hiccups (Primary Dx); Gastroesophageal reflux disease with esophagitis without hemorrhage; Esophagitis Discharge Disposition: Discharge to home or self care 11/20/19 Telephone [facility] G[facility]enter[facility] at [address] [place] [phone] Raghavendra Coronado MD 11/20/19 1:46 AM CDT - 11/20/19 7:17 AM T [facility] Emergency Department [address] [place] [address] Aj Restrepo Jr., MD Intractable hiccups (Primary Dx); Gastroesophageal reflux disease, unspecified whether esophagitis present Discharge Disposition: Discharge to home or self care 11/18/19 7:12 PM CDT - 11/18/19 8:09 PM CDT Emergency [facility] Emergency Department [address] [place] [address] Sorin Parkinson MD Chronic hiccups (Primary Dx) Discharge Disposition: Discharge to home or self care 11/17/19 10:48 PM CDT - 11/18/19 12:22 AM T [facility] Emergency Department [address] [place] [address] Hiccups (Primary Dx) Discharge Disposition: Discharge to home or self care 10/17/19 Telephone [facility] Cardiology [address] [place] [phone] Edgardo Beth MD from Last 3 [...] 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 Never 10/11/2024 Do you belong to [...] any time in the past 12 m [facility], were you homeless or living in a prison (including now)? No 10/11/2024 Personal Safety Answer Date Recorded Have you ever been in or are you currently in a harmful physical or emotional relationship or is someone making you feel afraid or unsafe? 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 Testing performed by: [facility], [address] [place] [address]., [address] Trop T hs delta 0 ng/L [facility] Comment:Testing performed by : [facility], [address] [place] [address]., [address] Trop T hs interp Insignificant [facility] Comment:Testing performed by : [facility], [address] [place] [address]., [address] Blood 01/13/2025 5:45 PM CDT 01/13/2025 5:47 PM CDT us Clara VASQUEZ LAB BLOOD ORDERABLES Final R esult [facility] [address] [facility] Department [place] [address] * CT Abdomen Pelvis W Contrast (01/13/2025 [...] Nasir Duncan M.D. LC: FARSHAD Report ID: [id number] Reading Location: [id number] Procedure Note Deisy Duncan MD - 01/13/2025 [...] Nasir Duncan M.D. LC: FARSHAD Report ID: [id number] Reading Location: [place] [address] PROCEDURES Final Resu lt * Urinalysis reflex to microscopic and culture Urine (01/13/2025 4:06 PM CDT) Color, ur Yellow Yellow Comment:Testing performed by : [address] [address] Clarity, ur Clear Clear [facility] Comment:Testing performed by : [address] [address] Specific gravity, ur 1.019 1.003 - 1.030 [facility] Comment:Testing performed by : [address] [address] pH, urine 6.0 [facility] Comment: Interpretive Data U rine pH is affected by diet, medications, systemic acid-base disturbances, and renal tubular function. pH may affect urinary stone formation. For example, urine pH below 6.0 may help reduce the tendency for calcium phosphate stones and pH greater than 6.0 may reduce the tendency for uric acid stone formation. Source: [employer] Current Interpretive Data was last revised on 2017 Testing performed by: [facility], [address] [place] [address], [place]., [address] Protein, ur ql Negative Negative [facility] Comment:Testing performed by : [facility], [address] [place] [address], [place]., [address] Glucose, ur ql Negative Negative [facility] Comment:Testing performed by : [address], [place]., [address] Ketones, ur Negative Negative [facility] Comment:Testing performed by : [address], [place]., [address] Bilirubin, ur Negative Negative [facility] Comment:Testing performed by : [address], [place]., [address] Blood, ur Negative Negative [facility] Comment:Testing performed by : [address], [place]., [address] Urobilinogen, ur <2.0 <2.0 mg/dL [facility] Comment:Testing performed by : [facility], [address] [place] [address], [place]., [address] Nitrite, ur Negative Negative [facility] Comment:Testing performed by : [address], [place]., [address] Leukocyte esterase, ur Negative Negative [facility] Comment:Testing performed by : [address], [place]., [address] UA reflex comment Reflex conditions for microscopic UA and culture not met. [facility] Comment:Testing performed by : [address] [address] Urine 01/13/2025 4:06 PM CDT 01/13/2025 4:08 PM CDT us Clara VASQUEZ LAB MICROBIOLOGY - GENERAL O RDERABLES Final Result [facility] [address] [facility] Department [place] [address] * Troponin T high-sensitivity series (baseline, 2hr, 4hr, 6hr) (01/13/2025 3:34 PM CDT) Trop T hs 10 <=22 ng/L Comment: Interpretive Data For further hscTnT resources including the diagnostic algorithm and an aid in interpretation, copy and paste this link: https://nrl.testcatalog.org/show/hsTrop Current Interpretive Data last revised 2020. Testing performed by: [facility], [address] [place] [address]., [address] Blood 01/13/2025 3:34 PM CDT 01/13/2025 3:39 PM CDT Clara VASQUEZ LAB BLOOD ORDERABLES Final R esult [facility] [address] [facility] Department [place] [address] * eGFR (01/13/2025 3:34 PM [...] was last reviewed 2021. Testing performed by: [facility], [address] [place] [address]., [address] Blood 01/13/2025 3:34 PM CDT 01/13/2025 3:39 PM CDT us Clara VASQUEZ LAB BLOOD ORDERABLES Final R esult [facility] [address] [facility] Department [place] [address] * Differential, auto (01/13/2025 3:34 PM CDT) Neutrophil abs 4.10 1.50 - 6.50 K/cumm Comment:Testing performed by : [address] [address] Imm gran abs 0.02 0.00 - 0.10 K/cumm [facility] Comment:Testing performed by : [address] [address] Lymphocyte abs 1.31 0.80 - 3.30 K/cumm [facility] Comment:Testing performed by : [address] [address] Monocyte abs 0.61 0.20 - 0.80 K/cumm [facility] Comment:Testing performed by : [address] [address]383 Eosinophil abs 0.12 0.00 - 0.50 K/cumm [facility] Comment:Testing performed by : [address] [address] Basophil abs 0.02 0.00 - 0.10 K/cumm [facility] Comment:Testing performed by : [address] [address] Neutrophil pct 66.4 % [facility] Comment: Interpretive Data Percent cell count reference ranges are not reported, since discordance with absolute values may lead to misinterpretation of CBC data. Current Interpretive Data was last revised on 2017. Testing performed by: [address] [address] Imm gran pct 0.3 % [facility] Comment: Interpretive Data Percent cell count reference ranges are not reported, since discordance with absolute values may lead to misinterpretation of CBC data. Current Interpretive Data was last revised on 2017. Testing performed by: [address] [address] Lymphocyte pct 21.2 % [facility] Comment: Interpretive Data Percent cell count reference ranges are not reported, since discordance with absolute values may lead to misinterpretation of CBC data. Current Interpretive Data was last revised on 2017. Testing performed by: [address] [address] Monocyte pct 9.9 % [facility] Comment: Interpretive Data Percent cell count reference ranges are not reported, since discordance with absolute values may lead to misinterpretation of CBC data. Current Interpretive Data was last revised on 2017. Testing performed by: [address] [address] Eosinophil pct 1.9 % [facility] Comment: Interpretive Data Percent cell count reference ranges are not reported, since discordance with absolute values may lead to misinterpretation of CBC data. Current Interpretive Data was last revised on 2017. Testing performed by: [address] [address] Basophil pct 0.3 % [facility] Comment: Interpretive Data Percent cell count reference ranges are not reported, since discordance with absolute values may lead to misinterpretation of CBC data. Current Interpretive Data was last revised on 2017. Testing performed by: [address] [address] Blood 01/13/2025 3:34 PM CDT 01/13/2025 3:39 PM CDT us Clara VASQUEZ LAB BLOOD ORDERABLES Final R esult [facility] [address] [facility] Department [place] [address] * (ABNORMAL) CBC with auto differential (01/13/2025 3:34 PM CDT) WBC 6.18 3.80 - 9.90 K/cumm Comment:Testing performed by : [address] [address] Hgb 15.5 13.0 - 17.5 g/dL [facility] Comment:Testing performed by : [address], [address] Hct 46.3 38.9 - 50.3 % [facility] Comment:Testing performed by : [address] [address] Plt 272 150 - 400 K/cumm [facility] Comment:Testing performed by : [address] [address] MPV 8.3(L) 9.1 - 12.3 fL [facility] Comment:Testing performed by : [address] [address] RBC 5.38 4.30 - 5.80 M/cumm [facility] Comment:Testing performed by : [address], [address] MCV 86.1 81.3 - 96.4 fL [facility] Comment:Testing performed by : [address], [address] MCH 28.8 27.1 - 33.3 pg [facility] Comment:Testing performed by : [address], [address] MCHC 33.5 32.3 - 35.7 g/dL [facility] Comment:Testing performed by : [address], [address] RDW CV 12.7 11.1 - 14.9 % [facility] Comment:Testing performed by : [address], [address] RDW SD 39.2 35.7 - 48.1 fL [facility] Comment:Testing performed by : [address], [address] NRBC abs 0.00 0.00 - 0.01 K/cumm [facility] Comment:Testing performed by : [address], [address] Blood Venous blood specimen / Unknown 01/13/2025 3:34 PM CDT 01/13/2025 3:39 PM CDT Clara VASQUEZ LAB BLOOD ORDERABLES Final R esult Performing Organization Address City/[facility] Co de Phone Number [place] [phone] [place] [address] * Lipase (01/13/2025 3:34 PM CDT) [facility] Lipase 33 10 - 99 Units/L Comment:Testing performed by : [address] [address] Blood Venous blood specimen / Unknown 01/13/2025 3:34 PM CDT 01/13/2025 3:39 PM CDT Clara VASQUEZ LAB BLOOD ORDERABLES Final R esult Performing Organization Address [facility] Co de Phone Number [address] [address] * Comprehensive metabolic panel (01/13/2025 3:34 PM CDT) [facility] Sodium 141 135 - 145 mmol/L Comment:Testing performed by : [address] [address] Potassium, pl 4.0 3.3 - 4.9 mmol/L [facility] Comment:Testing performed by : [address] [address] Chloride 104 97 - 110 mmol/L [facility] Comment:Testing performed by : [address] [address] CO2 24 22 - 32 mmol/L [facility] Comment:Testing performed by : [address] [address] Anion gap 13 2 - 15 mmol/L [facility] Comment:Testing performed by : [address] [address] BUN 12 6 - 25 mg/dL [facility] Comment:Testing performed by : [address] [address] Creatinine 0.90 0.80 - 1.30 mg/dL [facility] Comment:Testing performed by : [address] [address] Glucose 101 70 - 199 mg/dL [facility] [...] was last revised 2022. Testing performed by: [address] [address] Calcium 9.5 8.5 - 10.3 mg/dL [facility] Comment:Testing performed by : [address] [address] Bilirubin, total 0.7 0.1 - 1.2 mg/dL [facility] Comment:Testing performed by : [address] [address] Protein, pl 7.7 6.5 - 8.5 g/dL [facility] Comment:Testing performed by : [address] [address] Albumin 4.2 3.5 - 5.0 g/dL [facility] Comment:Testing performed by : [address] [address] Alk phos 121 40 - 130 Units/L [facility] Comment:Testing performed by : [address] [address] ALT 29 7 - 55 Units/L [facility] Comment:Testing performed by : [address] [address] AST 22 10 - 50 Units/L [facility] Comment:Testing performed by : [address] [address] Blood 01/13/2025 3:34 PM CDT 01/13/2025 3:39 PM CDT us Clara VASQUEZ LAB BLOOD ORDERABLES Final R esult [facility] [facility] Department of Laboratories [place] [id number] * Surgical pathology (12/04/2024 12:26 PM CDT) Tissue (Gastric/Stomach biopsy) 12/04/2024 12:26 PM CDT Comment:Cold biopsy Tissue specimen (specimen) (Esophageal biopsy) 12/04/2024 12:28 PM CDT Comment:Cold biopsy Tissue specimen (specimen) (Esophageal biopsy) 12/04/2024 12:30 PM CDT Comment:Cold biopsy Narrative PATHOLOGY [facility] - 12/05/2024 1:19 PM CDT [facility] Department of Pathology [address] [place] [address] Note to Patients: This report may contain [...] : 1980 (Age: 44) Gender: M Address: [address] [place] [address] Hospital #: [id number] Service: Gastro Location: Patient Type: [facility] OUTPATIENT Taken: 12/04/2024 Received: 12/04/2024 Accessioned: 12/04/2024 [...] cm. Submitted entirely. Labeled C1. Jar 0. [facility]/12/04/2024 14:36 CHRISTINA Ibarra Microscopic slide review and interpretation for this case was performed at [facility], Department of Surgical Pathology, [address] [facility] [place] [id number], [place] [address] CLIA # [id number] us Raghavendra Coronado MD LAB PATHOLOGY ORDERABLES Final R esult PATHOLOGY [facility] * EGD (12/04/2024 12:15 PM CDT) Anatomical Region Laterality Modality Other Narrative Procedure Note Raghavendra Coronado MD - 12/04/2024 12:15 PM CDT [facility] GI ENDOSCOPY Patient Name: Dorothy Forman Procedure Date: 12/04/2024 12:15 PM Date of : 1980 Admit Type: Outpatient Age: 44 Gender: Male Attending MD: Raghavendra Coronado M.D. Room: [facility] ENDOSCOPY ROOM 03 Note Status: Finalized Procedure: [...] On: 12/04/2024 12:15 PM Recognized by the [employer] for promoting quality [...] Data last revised 2020. Testing performed by: [facility], [address] [place] [address]., [address] Trop T hs delta -2 ng/L [facility] Comment:Testing performed by : [facility], [address] [place] [address], [place]., [address] Trop T hs interp Insignificant [facility] Comment:Testing performed by : [address] [address] Blood 12/01/2024 11:4 1 AM CDT 12/01/2024 11:47 AM CDT Brandon Bradley MD LAB BLOOD ORDERABLES F inal Result [facility] [address] [facility] Department [place] [address] * XR Chest 1 Vw Portable (if [...] Kristy Avery M.D. TW: DARRIN Report ID: [id number] Reading Location: [id number] Procedure Note Kristy Avery MD - 12/01/2024 [...] Kristy Avery M.D. TW: TW Report ID: [id number] Reading Location: [place] [address] us Brandon Bradley MD IMG XR PROCEDURES Graciela l Result * Troponin T high-sensitivity series (baseline, 2hr, 4hr, 6hr) (12/01/2024 10:00 AM CDT) Trop T hs 12 <=22 ng/L Comment: Interpretive Data For further hscTnT resources including the diagnostic algorithm and an aid in interpretation, copy and paste this link: https://nrl.testcatalog.org/show/hsTrop Current Interpretive Data last revised 2020. Testing performed by: [facility], [address] [place] [address]., [address] Blood 12/01/2024 10:0 0 AM CDT 12/01/2024 10:04 AM CDT Brandon Bradley MD LAB BLOOD ORDERABLES F inal Result [facility] [address] [facility] Department [place] [address] * eGFR (12/01/2024 10:00 AM [...] was last reviewed 2021. Testing performed by: [address] [address] Blood 12/01/2024 10:0 0 AM CDT 12/01/2024 10:04 AM CDT us Brandon Bradley MD LAB BLOOD ORDERABLES F inal Result [facility] Department [place] [address] * (ABNORMAL) Differential, auto (12/01/2024 10:00 AM CDT) Neutrophil abs 1.45(L) 1.50 - 6.50 K/cumm Comment:Testing performed by : [address] [address] Imm gran abs 0.01 0.00 - 0.10 K/cumm [facility] Comment:Testing performed by : [address] [address] Lymphocyte abs 1.03 0.80 - 3.30 K/cumm [facility] Comment:Testing performed by : [address] [address] Monocyte abs 0.39 0.20 - 0.80 K/cumm [facility] Comment:Testing performed by : [address] [address] Eosinophil abs 0.24 0.00 - 0.50 K/cumm [facility] Comment:Testing performed by : [address] [address] Basophil abs 0.02 0.00 - 0.10 K/cumm [facility] Comment:Testing performed by : [address] [address] Neutrophil pct 46.3 % [facility] Comment: Interpretive Data Percent cell count reference ranges are not reported, since discordance with absolute values may lead to misinterpretation of CBC data. Current Interpretive Data was last revised on 2017. Testing performed by: [address] [address] Imm gran pct 0.3 % [facility] Comment: Interpretive Data Percent cell count reference ranges are not reported, since discordance with absolute values may lead to misinterpretation of CBC data. Current Interpretive Data was last revised on 2017. Testing performed by: [address] [address] Lymphocyte pct 32.8 % [facility] Comment: Interpretive Data Percent cell count reference ranges are not reported, since discordance with absolute values may lead to misinterpretation of CBC data. Current Interpretive Data was last revised on 2017. Testing performed by: [address] [address] Monocyte pct 12.4 % [facility] Comment: Interpretive Data Percent cell count reference ranges are not reported, since discordance with absolute values may lead to misinterpretation of CBC data. Current Interpretive Data was last revised on 2017. Testing performed by: [address] [address] Eosinophil pct 7.6 % [facility] Comment: Interpretive Data Percent cell count reference ranges are not reported, since discordance with absolute values may lead to misinterpretation of CBC data. Current Interpretive Data was last revised on 2017. Testing performed by: [address] [address] Basophil pct 0.6 % [facility] Comment: Interpretive Data Percent cell count reference ranges are not reported, since discordance with absolute values may lead to misinterpretation of CBC data. Current Interpretive Data was last revised on 2017. Testing performed by: [address] [address] Blood 12/01/2024 10:0 0 AM CDT 12/01/2024 10:04 AM CDT us Brandon Bradley MD LAB BLOOD ORDERABLES F inal Result [facility] [facility] Department [place] [address] * (ABNORMAL) CBC with auto differential (12/01/2024 10:00 AM CDT) WBC 3.14(L) 3.80 - 9.90 K/cumm Comment:Testing performed by : [address] [address] Hgb 16.0 13.0 - 17.5 g/dL [facility] Comment:Testing performed by : [address], [address] Hct 49.2 38.9 - 50.3 % [facility] Comment:Testing performed by : [address] [address] Plt 235 150 - 400 K/cumm [facility] Comment:Testing performed by : [address] [address] MPV 8.6(L) 9.1 - 12.3 fL [facility] Comment:Testing performed by : [address] [address] RBC 5.54 4.30 - 5.80 M/cumm [facility] Comment:Testing performed by : [address] [address] MCV 88.8 81.3 - 96.4 fL [facility] Comment:Testing performed by : [address] [address] MCH 28.9 27.1 - 33.3 pg [facility] Comment:Testing performed by : [address] [address] MCHC 32.5 32.3 - 35.7 g/dL [facility] Comment:Testing performed by : [address], [address] RDW CV 12.5 11.1 - 14.9 % [facility] Comment:Testing performed by : [address] [address] RDW SD 41.1 35.7 - 48.1 fL [facility] Comment:Testing performed by : [address] [address] NRBC abs 0.00 0.00 - 0.01 K/cumm [facility] Comment:Testing performed by : [address] [address] Blood Venous blood specimen / Unknown 12/01/2024 10:00 AM CDT 12/01/2024 10:04 AM CDT us Brandon Bradley MD LAB BLOOD ORDERABLES F inal Result [facility] Department [place] [address] * (ABNORMAL) Comprehensive metabolic panel (12/01/2024 10:00 AM CDT) Sodium 138 135 - 145 mmol/L Comment:Testing performed by : [address] [address] Potassium, pl 4.2 3.3 - 4.9 mmol/L [facility] Comment: Hemolyzed; Potassium value may be falsely elevated by as much as 1.0 mmol/L. Suggest redraw and reanalysis. Testing performed by: [address] [address] Chloride 104 97 - 110 mmol/L [facility] Comment:Testing performed by : [address] [address] CO2 23 22 - 32 mmol/L [facility] Comment:Testing performed by : [address] [address] Anion gap 11 2 - 15 mmol/L [facility] Comment:Testing performed by : [address] [address] BUN 7 6 - 25 mg/dL [facility] Comment:Testing performed by : [address] [address] Creatinine 0.99 0.80 - 1.30 mg/dL [facility] Comment:Testing performed by : [address] [address] Glucose 112 70 - 199 mg/dL [facility] Comment: Interpretive Data Fasting glucose [...] was last revised 2022. Testing performed by: [address] [address] Calcium 9.8 8.5 - 10.3 mg/dL [facility] Comment:Testing performed by : [address] [address] Bilirubin, total 0.5 0.1 - 1.2 mg/dL [facility] Comment:Testing performed by : [address] [address] Protein, pl 7.5 6.5 - 8.5 g/dL [facility] Comment:Testing performed by : [address] [address] Albumin 4.2 3.5 - 5.0 g/dL [facility] Comment:Testing performed by : [address] [address] Alk phos 97 40 - 130 Units/L [facility] Comment:Testing performed by : [address] [address] ALT 104(H) 7 - 55 Units/L [facility] Comment:Testing performed by : [address] [address] AST 53(H) 10 - 50 Units/L [facility] Comment: Hemolyzed; result may be falsely elevated Testing performed by: [address] [address] Blood 12/01/2024 10:0 0 AM CDT 12/01/2024 10:04 AM CDT Brandon Bradley MD LAB BLOOD ORDERABLES F inal Result Performing Organization Address [facility] Co de Phone Number [facility] Department [place] [address] * ECG 12 lead (12/01/2024 9:48 AM CDT) Ventricular Rate EKG/Min 83 BPM [facility] Atrial Rate 83 BPM [facility] IA-Interval (MSEC) 166 ms [facility] QRS-Interval (MSEC) 78 ms [facility] QT-Interval (MSEC) 364 ms [facility] QTc 427 ms [facility] P [place] 72 degrees [facility] R [place] 16 degrees [facility] T [place] 38 degrees [facility] Diagnosis Normal sinus rhythm Normal ECG When compared with ECG of 22-NOV-2024 01:56, No significant change was found Confirmed by MANUELA SORENSEN M.D. ([id number]) on 12/01/2024 12:15:27 PM [facility] 12/01/2024 9:48 AM CDT 12/01/2024 12:15 PM CDT Brandon Bradley MD ECG ORDERABLES Final Result Performing Organization Address [facility] Phone Number [facility] * eGFR (11/29/2024 5:50 PM CDT) eGFR [...] was last reviewed 2021. Testing performed by: [address] [address] Blood 11/29/2024 5:50 PM CDT 11/29/2024 6:08 PM CDT us Aj Restrepo Jr., MD LAB BLOOD ORDERABLES Fi nal Result [facility] Department [place] [address] * Differential, auto (11/29/2024 5:50 PM CDT) Neutrophil abs 1.65 1.50 - 6.50 K/cumm Comment:Testing performed by : [address] [address] Imm gran abs 0.01 0.00 - 0.10 K/cumm [facility] Comment:Testing performed by : [address] [address] Lymphocyte abs 1.43 0.80 - 3.30 K/cumm [facility] Comment:Testing performed by : [address] [address] Monocyte abs 0.45 0.20 - 0.80 K/cumm [facility] Comment:Testing performed by : [address] [address] Eosinophil abs 0.26 0.00 - 0.50 K/cumm [facility] Comment:Testing performed by : [address] [address] Basophil abs 0.01 0.00 - 0.10 K/cumm [facility] Comment:Testing performed by : [address] [address] Neutrophil pct 43.3 % [facility] Comment: Interpretive Data Percent cell count reference ranges are not reported, since discordance with absolute values may lead to misinterpretation of CBC data. Current Interpretive Data was last revised on 2017. Testing performed by: [address] [address] Imm gran pct 0.3 % [facility] Comment: Interpretive Data Percent cell count reference ranges are not reported, since discordance with absolute values may lead to misinterpretation of CBC data. Current Interpretive Data was last revised on 2017. Testing performed by: [address] [address] Lymphocyte pct 37.5 % [facility] Comment: Interpretive Data Percent cell count reference ranges are not reported, since discordance with absolute values may lead to misinterpretation of CBC data. Current Interpretive Data was last revised on 2017. Testing performed by: [address] [address] Monocyte pct 11.8 % [facility] Comment: Interpretive Data Percent cell count reference ranges are not reported, since discordance with absolute values may lead to misinterpretation of CBC data. Current Interpretive Data was last revised on 2017. Testing performed by: [address] [address] Eosinophil pct 6.8 % [facility] Comment: Interpretive Data Percent cell count reference ranges are not reported, since discordance with absolute values may lead to misinterpretation of CBC data. Current Interpretive Data was last revised on 2017. Testing performed by: [address] [address] Basophil pct 0.3 % [facility] Comment: Interpretive Data Percent cell count reference ranges are not reported, since discordance with absolute values may lead to misinterpretation of CBC data. Current Interpretive Data was last revised on 2017. Testing performed by: [address] [address] Blood 11/29/2024 5:50 PM CDT 11/29/2024 6:08 PM CDT us Aj Restrepo Jr., MD LAB BLOOD ORDERABLES Fi nal Result [facility] Department of Laboratories [place], [place] [id number] * (ABNORMAL) CBC with auto differential (11/29/2024 5:50 PM CDT) WBC 3.81 3.80 - 9.90 K/cumm Comment:Testing performed by : [address] [address] Hgb 15.3 13.0 - 17.5 g/dL [facility] Comment:Testing performed by : [address], [address] Hct 46.5 38.9 - 50.3 % [facility] Comment:Testing performed by : [address] [address] Plt 255 150 - 400 K/cumm [facility] Comment:Testing performed by : [address] [address] MPV 8.4(L) 9.1 - 12.3 fL [facility] Comment:Testing performed by : [address] [address] RBC 5.24 4.30 - 5.80 M/cumm [facility] Comment:Testing performed by : [address] [address] MCV 88.7 81.3 - 96.4 fL [facility] Comment:Testing performed by : [address] [address] MCH 29.2 27.1 - 33.3 pg [facility] Comment:Testing performed by : [address] [address] MCHC 32.9 32.3 - 35.7 g/dL [facility] Comment:Testing performed by : [address] [address] RDW CV 12.5 11.1 - 14.9 % [facility] Comment:Testing performed by : [address] [address] RDW SD 40.9 35.7 - 48.1 fL [facility] Comment:Testing performed by : [address] [address] NRBC abs 0.00 0.00 - 0.01 K/cumm [facility] Comment:Testing performed by : [address] [address] Blood 11/29/2024 5:50 PM CDT 11/29/2024 6:08 PM CDT us jA Restrepo Jr., MD LAB BLOOD ORDERABLES Fi nal Result [facility] Department [place] [address] * (ABNORMAL) Comprehensive metabolic panel (11/29/2024 5:50 PM CDT) Sodium 138 135 - 145 mmol/L Comment:Testing performed by : [address] [address] Potassium, pl 4.2 3.3 - 4.9 mmol/L [facility] Comment: Hemolyzed; Potassium value may be falsely elevated by as much as 1.0 mmol/L. Suggest redraw and reanalysis. Testing performed by: [address] [address] Chloride 103 97 - 110 mmol/L [facility] Comment:Testing performed by : [address] [address] CO2 25 22 - 32 mmol/L [facility] Comment:Testing performed by : [address] [address] Anion gap 10 2 - 15 mmol/L [facility] Comment:Testing performed by : [address] [address] BUN 10 6 - 25 mg/dL [facility] Comment:Testing performed by : [address] [address] Creatinine 1.17 0.80 - 1.30 mg/dL [facility] Comment:Testing performed by : [address] [address] Glucose 103 70 - 199 mg/dL [facility] [...] was last revised 2022. Testing performed by: [address] [address] Calcium 10.1 8.5 - 10.3 mg/dL [facility] Comment:Testing performed by : [address] [address] Bilirubin, total 0.5 0.1 - 1.2 mg/dL [facility] Comment:Testing performed by : [address] [address] Protein, pl 7.3 6.5 - 8.5 g/dL [facility] Comment:Testing performed by : [address] [address] Albumin 4.1 3.5 - 5.0 g/dL [facility] Comment:Testing performed by : [address] [address] Alk phos 87 40 - 130 Units/L [facility] Comment:Testing performed by : [address] [address] ALT 90(H) 7 - 55 Units/L [facility] Comment:Testing performed by : [address] [address] AST 40 10 - 50 Units/L [facility] Comment: Hemolyzed; result may be falsely elevated Testing performed by: [address] [address] Blood 11/29/2024 5:50 PM CDT 11/29/2024 6:08 PM CDT us Aj Restrepo Jr., MD LAB BLOOD ORDERABLES Fi nal Result [facility] [address] [facility] Department [place] [address] * ECG 12 lead (11/22/2024 1:56 AM CDT) Ventricular Rate EKG/Min 90 BPM [facility] Atrial Rate 90 BPM [facility] IA-Interval (MSEC) 170 ms [facility] QRS-Interval (MSEC) 82 ms [facility] QT-Interval (MSEC) 356 ms [facility] QTc 435 ms [facility] P [place] 62 degrees [facility] R [place] 5 degrees [facility] T [place] 35 degrees [facility] Diagnosis Normal sinus rhythm Possible Left atrial enlargement Borderline ECG When compared with ECG of 19-NOV-2024 01:32, No significant change was found Confirmed by KOJO HARRIS M.D. ([id number]) on 11/26/2024 11:12:53 AM [facility] 11/22/2024 1:56 AM CDT 11/26/2024 11:12 AM CDT us Ligia Woods MD ECG ORDERABLES Final Re sult Performing Organization Address [facility] Co de Phone Number [facility] * Troponin T high-sensitivity 2-hour (11/19/2024 4:34 AM CDT) Trop T hs 12 <=22 ng/L Comment: Interpretive Data For further hscTnT resources including the diagnostic algorithm and an aid in interpretation, copy and paste this link: https://nrl.testcatalog.org/show/hsTrop Current Interpretive Data last revised 2020. Testing performed by: [facility], [address] [place] [address]., [address] Trop T hs delta -2 ng/L [facility] Comment:Testing performed by : [address] [address] Trop T hs interp Insignificant [facility] Comment:Testing performed by : [facility], [address] [facility], [place]., [address] Blood 11/19/2024 4:34 AM CDT 11/19/2024 4:56 AM CDT us Aj Restrepo Jr., MD LAB BLOOD ORDERABLES Fi nal Result [facility] ALEXANDRO [address] [facility] Department [place] [address] * CT Chest Abdomen Pelvis WO Contrast (11/19/2024 2:53 AM CDT) Anatomical Region Laterality Modality Body N/A Computed Tomogra phy 11/19/2024 3:07 AM CDT Narrative 11/19/2024 3:13 AM CDT EXAM DESCRIPTION: CT CHEST ABDOMEN PELVIS WO CONTRAST REASON FOR STUDY: persistent hiccoughs for 4 days, now sob, throat pain and abd pain Pt c/o trouble breathing when laying down. Pt reports Hx of MD in October 2024. Pt also reports hiccups [...] Wiliam Roper M.D. AR: ROBY Report ID: [id number] Reading Location: [id number] Procedure Note Wiliam Roper MD - 11/19/2024 EXAM DESCRIPTION: CT CHEST ABDOMEN PELVIS WO CONTRAST REASON FOR STUDY: persistent hiccoughs for 4 days, now sob, throatpain and abd pain Pt c/o trouble breathing when laying down. Pt reports Hx of MD in October2024. Pt also reports hiccups x [...] Wiliam Roper M.D. AR: ROBY Report ID: [id number] Reading Location: [place] [address] Aj Restrepo Jr., MD IMG CT PROCEDURES [...] when laying down. Pt reports Hx of MD in October 2024. Pt also reports hiccups [...] Wiliam Roper M.D. AR: ROBY Report ID: [id number] Reading Location: [id number] Procedure Note Wiliam Roper MD - 11/19/2024 EXAM DESCRIPTION: CT SOFT TISSUE NECK W CONTRAST REASON FOR STUDY: Soft tissue infection suspected, neck, xray done Pt c/o trouble breathing when laying down. Pt reports Hx of MD in October2024. Pt also reports hiccups x [...] Wiliam Roper M.D. AR: AR Report ID: [id number] Reading Location: [place] [address] Aj Restrepo Jr., MD [facility] [place]EDURES Final Result * D-dimer, quantitative [...] last revised on 2019. Testing performed by: [facility], [address] [place] [address], [place]., [address] Blood 11/19/2024 2:08 AM CDT 11/19/2024 2:15 AM CDT us Aj Restrepo Jr., MD LAB BLOOD ORDERABLES Fi nal Result [facility] [address] [facility] Department [place] [address] * XR Chest 1 Vw Portable (if patient condition/safety warrant portable) (11/19/2024 1:55 AM CDT) Anatomical Region Laterality Modality Body, Chest N/A Computed Radiogr aphy 11/19/2024 1:56 AM CDT Narrative 11/19/2024 1:59 AM CDT EXAM DESCRIPTION: XR CHEST 1 VIEW REASON FOR STUDY: Shortness of breath Pt c/o trouble breathing when laying down. Pt reports Hx of MD in October 2024. Pt also reports hiccups [...] Wiliam Roper M.D. AR: ROBY Report ID: [id number] Reading Location: [id number] Procedure Note Wiliam Roper MD - 11/19/2024 EXAM DESCRIPTION: XR CHEST 1 VIEW REASON FOR STUDY: Shortness of breath Pt c/o trouble breathing when laying down. Pt reports Hx of MD in October2024. Pt also reports hiccups x [...] Wiliam Roper M.D. AR: ROBY Report ID: [id number] Reading Location: [place] [address] us Aj Restrepo Jr., MD IMG XR PROCEDURES Final Result * Troponin T high-sensitivity series (baseline, 2hr, 4hr, 6hr) (11/19/2024 1:42 AM CDT) Pathologist [facility] Trop T hs 14 <=22 ng/L Comment: Interpretive Data For further hscTnT resources including the diagnostic algorithm and an aid in interpretation, copy and paste this link: https://nrl.testcatalog.org/show/hsTrop Current Interpretive Data last revised 2020. Testing performed by: [facility], [address] [place] [address]., [address] Blood 11/19/2024 1:42 AM CDT 11/19/2024 2:03 AM CDT us Aj Restrepo Jr., MD LAB BLOOD ORDERABLES Fi nal Result [facility] [address] [facility] Department [place] [address] * eGFR (11/19/2024 1:42 AM CDT) Pathologist [facility] eGFR 75 >=60 mL/min/1. 73 m2 Comment: [...] was last reviewed 2021. Testing performed by: [address] [address] Blood 11/19/2024 1:42 AM CDT 11/19/2024 2:03 AM CDT us Aj Restrepo Jr., MD LAB BLOOD ORDERABLES Fi nal Result [facility] [address] [facility] Department [place] [address] * Differential, auto (11/19/2024 1:42 AM CDT) Neutrophil abs 3.39 1.50 - 6.50 K/cumm Comment:Testing performed by : [address] [address] Imm gran abs 0.02 0.00 - 0.10 K/cumm [facility] Comment:Testing performed by : [address] [address] Lymphocyte abs 1.64 0.80 - 3.30 K/cumm [facility] Comment:Testing performed by : [address] [address] Monocyte abs 0.72 0.20 - 0.80 K/cumm [facility] Comment:Testing performed by : [address] [place]., [address] Eosinophil abs 0.23 0.00 - 0.50 K/cumm [facility] Comment:Testing performed by : [address] [address] Basophil abs 0.03 0.00 - 0.10 K/cumm [facility] Comment:Testing performed by : [address] [address] Neutrophil pct 56.3 % [facility] Comment: Interpretive Data Percent cell count reference ranges are not reported, since discordance with absolute values may lead to misinterpretation of CBC data. Current Interpretive Data was last revised on 2017. Testing performed by: [address] [address] Imm gran pct 0.3 % [facility] Comment: Interpretive Data Percent cell count reference ranges are not reported, since discordance with absolute values may lead to misinterpretation of CBC data. Current Interpretive Data was last revised on 2017. Testing performed by: [address] [address] Lymphocyte pct 27.2 % [facility] Comment: Interpretive Data Percent cell count reference ranges are not reported, since discordance with absolute values may lead to misinterpretation of CBC data. Current Interpretive Data was last revised on 2017. Testing performed by: [address] [address] Monocyte pct 11.9 % [facility] Comment: Interpretive Data Percent cell count reference ranges are not reported, since discordance with absolute values may lead to misinterpretation of CBC data. Current Interpretive Data was last revised on 2017. Testing performed by: [address] [address] Eosinophil pct 3.8 % [facility] Comment: Interpretive Data Percent cell count reference ranges are not reported, since discordance with absolute values may lead to misinterpretation of CBC data. Current Interpretive Data was last revised on 2017. Testing performed by: [address] [address] Basophil pct 0.5 % [facility] Comment: Interpretive Data Percent cell count reference ranges are not reported, since discordance with absolute values may lead to misinterpretation of CBC data. Current Interpretive Data was last revised on 2017. Testing performed by: [facility], [address] [place] [address], [place]., [address] Blood 11/19/2024 1:42 AM CDT 11/19/2024 2:03 AM CDT us Aj Restrepo Jr., MD LAB BLOOD ORDERABLES Fi nal Result [facility] [address] [facility] Department [place] [address] * Pro B-type natriuretic peptide (11/19/2024 1:42 [...] Last Revised Date: 2018. Testing performed by: [address] [address] Blood 11/19/2024 1:42 AM CDT 11/19/2024 2:03 AM CDT us Aj Restrepo Jr., MD LAB BLOOD ORDERABLES Fi nal Result [facility] [address] [facility] Department [place] [address] * Urinalysis reflex to microscopic and culture Urine, clean voided (11/19/2024 1:42 AM CDT) Color, ur Straw Yellow Comment:Testing performed by : [address] [address] Clarity, ur Clear Clear [facility] Comment:Testing performed by : [address] [address] Specific gravity, ur 1.007 1.003 - 1.030 [facility] Comment:Testing performed by : [address] [address] pH, urine 6.5 [facility] Comment: Interpretive Data U rine pH is affected by diet, medications, systemic acid-base disturbances, and renal tubular function. pH may affect urinary stone formation. For example, urine pH below 6.0 may help reduce the tendency for calcium phosphate stones and pH greater than 6.0 may reduce the tendency for uric acid stone formation. Source: [facility] [place] Current Interpretive Data was last revised on 2017 Testing performed by: [address] [address] Protein, ur ql Negative Negative [facility] Comment:Testing performed by : [address] [address] Glucose, ur ql Negative Negative [facility] Comment:Testing performed by : [address] [address] Ketones, ur Negative Negative [facility] Comment:Testing performed by : [address] [address] Bilirubin, ur Negative Negative [facility] Comment:Testing performed by : [address] [address] Blood, ur Negative Negative [facility] Comment:Testing performed by : [address], [place]., [address] Urobilinogen, ur <2.0 <2.0 mg/dL [facility] Comment:Testing performed by : [address], [place]., [address] Nitrite, ur Negative Negative [facility] Comment:Testing performed by : [address], [place]., [address] Leukocyte esterase, ur Negative Negative [facility] Comment:Testing performed by : [address] [address] UA reflex comment Reflex conditions for microscopic UA and culture not met. [facility] Comment:Testing performed by : [address] [address] Urine, clean voided 11/19/2024 1:42 AM CDT 11/19/2024 2:03 AM CDT us Aj Restrepo Jr., MD LAB MICROBIOLOGY - [facility] ORDERABLES Final Result [facility] [address] [facility] Department [place] [address] * (ABNORMAL) CBC with auto differential (11/19/2024 1:42 AM CDT) WBC 6.03 3.80 - 9.90 K/cumm Comment:Testing performed by : [address] [address] Hgb 15.5 13.0 - 17.5 g/dL [facility] Comment:Testing performed by : [address] [address] Hct 46.8 38.9 - 50.3 % [facility] Comment:Testing performed by : [address] [address] Plt 238 150 - 400 K/cumm [facility] Comment:Testing performed by : [address] [address] MPV 8.5(L) 9.1 - 12.3 fL [facility] Comment:Testing performed by : [address] [address] RBC 5.32 4.30 - 5.80 M/cumm [facility] Comment:Testing performed by : [address] [address] MCV 88.0 81.3 - 96.4 fL [facility] Comment:Testing performed by : [address] [address] MCH 29.1 27.1 - 33.3 pg [facility] Comment:Testing performed by : [address] [address] MCHC 33.1 32.3 - 35.7 g/dL [facility] Comment:Testing performed by : [address], [address] RDW CV 12.7 11.1 - 14.9 % [facility] Comment:Testing performed by : [address], [address] RDW SD 40.9 35.7 - 48.1 fL [facility] Comment:Testing performed by : [address] [address] NRBC abs 0.00 0.00 - 0.01 K/cumm [facility] Comment:Testing performed by : [address] [address] Blood 11/19/2024 1:42 AM CDT 11/19/2024 2:03 AM CDT us Aj Restrepo Jr., MD LAB BLOOD ORDERABLES Fi nal Result [facility] [address] [facility] Department [place] [address] * Magnesium (11/19/2024 1:42 AM CDT) Magnesium 2.4 1.4 - 2.5 mg/dL Comment:Testing performed by : [address] [address] Blood 11/19/2024 1:42 AM CDT 11/19/2024 2:03 AM CDT Aj Restrepo Jr., MD LAB BLOOD ORDERABLES Fi nal Result [facility] [address] [facility] Department [place] [address] * (ABNORMAL) Comprehensive metabolic panel (11/19/2024 1:42 AM CDT) Sodium 138 135 - 145 mmol/L Comment:Testing performed by : [address] [address] Potassium, pl 3.8 3.3 - 4.9 mmol/L [facility] Comment: Hemolyzed; Potassium value may be falsely elevated by as much as 1.0 mmol/L. Suggest redraw and reanalysis. Testing performed by: [address] [address] Chloride 103 97 - 110 mmol/L [facility] Comment:Testing performed by : [address] [address] CO2 24 22 - 32 mmol/L [facility] Comment:Testing performed by : [address] [address] Anion gap 11 2 - 15 mmol/L [facility] Comment:Testing performed by : [address] [address] BUN 15 6 - 25 mg/dL [facility] Comment:Testing performed by : [address] [address] Creatinine 1.23 0.80 - 1.30 mg/dL [facility] Comment:Testing performed by : [address] [address] Glucose 99 70 - 199 mg/dL [facility] [...] was last revised 2022. Testing performed by: [address] [address] Calcium 9.7 8.5 - 10.3 mg/dL [facility] Comment:Testing performed by : [address] [address] Bilirubin, total 0.8 0.1 - 1.2 mg/dL [facility] Comment:Testing performed by : [address] [address] Protein, pl 7.3 6.5 - 8.5 g/dL [facility] Comment:Testing performed by : [address] [address] Albumin 4.2 3.5 - 5.0 g/dL [facility] Comment:Testing performed by : [address] [address] Alk phos 84 40 - 130 Units/L [facility] Comment:Testing performed by : [address] [address] ALT 90(H) 7 - 55 Units/L [facility] Comment:Testing performed by : [address] [address] AST 59(H) 10 - 50 Units/L [facility] Comment: Hemolyzed; result may be falsely elevated Testing performed by: [address] [address] Blood 11/19/2024 1:42 AM CDT 11/19/2024 2:03 AM CDT us Aj Restrepo Jr., MD LAB BLOOD ORDERABLES Fi nal Result [facility] [address] [facility] Department [place] [address] * ECG 12 lead (11/19/2024 1:32 AM CDT) Ventricular Rate EKG/Min 90 BPM [facility] Atrial Rate 90 BPM [facility] IA-Interval (MSEC) 170 ms [facility] QRS-Interval (MSEC) 82 ms [facility] QT-Interval (MSEC) 352 ms [facility] QTc 430 ms [facility] P [place] 64 degrees [facility] R [place] 7 degrees [facility] T [place] 33 degrees [facility] Diagnosis Normal sinus rhythm Possible Left atrial enlargement Borderline ECG When compared with ECG of 17-NOV-2024 18:51, Nonspecific T wave abnormality has replaced inverted T waves in Inferior leads Confirmed by KOJO HARRIS M.D. ([id number]) on 11/19/2024 7:38:22 PM [facility] 11/19/2024 1:32 AM CDT 11/19/2024 7:38 PM CDT us Aj Restrepo Jr., MD ECG ORDERABLES Final R esult [facility] [employer] [facility] * XR Chest PA Lateral 2 Views (11/17/2024 7:12 PM CDT) Anatomical Region Laterality Modality Body, Chest N/A Computed Radiogr aphy 11/17/2024 7:36 PM CDT Narrative 11/17/2024 7:42 PM CDT EXAM DESCRIPTION: XR CHEST PA LATERAL 2 VIEWS REASON FOR STUDY: chest pain Pt reports he was seen at [facility] urgent care yesterday for hiccups, pt was seen in this ED this AM for hiccups and was given Reglan 10 mg IV that stopped his hiccups, pt was prescribed Reglan 10 mg Q6H, he took a dose this AM but has not had any since. 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 Pt also endorsing chest pain at this [...] Jonel Ann M.D. MF: CHRISTOPHER Report ID: [id number] Reading Location: [id number] Procedure Note Jonel Ann, DO - 11/17/2024 EXAM DESCRIPTION: XR CHEST PA LATERAL 2 VIEWS REASON FOR STUDY: chest pain Pt reports he was seen at [facility] urgent care yesterday forhiccups, pt was seen in this ED this AM for hiccups and was given Reglan 10 mg IVthat stopped his hiccups, pt was prescribed Reglan 10 mg Q6H, he took a dosethis AM but has not had any since. 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 [...] signed by Jonel WHITE: CHRISTOPHER Report ID: [id number] Reading Location: [id number] us Senia Arango BINDERY TECHNICIAN IMG XR PROCEDURES Final Result * ECG 12 lead (11/17/2024 6:51 PM CDT) [facility] Ventricular Rate EKG/Min 87 BPM [facility] Atrial Rate 87 BPM [facility] IA-Interval (MSEC) 164 ms [facility] QRS-Interval (MSEC) 80 ms [facility] QT-Interval (MSEC) 358 ms [facility] QTc 430 ms [facility] P [place] 59 degrees [facility] R [place] 43 degrees [facility] T [place] 1 degrees [facility] Diagnosis Normal sinus rhythm Normal ECG When compared with ECG of 16-NOV-2024 23:43, Inverted T waves have replaced nonspecific T wave abnormality in Inferior leads Confirmed by JONEL MORENO M.D. ([id number]) on 11/18/2024 12:51:29 PM [facility] 11/17/2024 6:51 PM CDT 11/18/2024 12:51 PM CDT us Senia Arango BINDERY TECHNICIAN ECG ORDERABLES Final Re sult Performing Organization Address City/[facility]/ZIP Co de Phone Number [facility] * Troponin T high-sensitivity series (baseline, 2hr, 4hr, 6hr) (11/17/2024 6:47 PM CDT) [facility] Trop T hs 19 <=22 ng/L Comment: Interpretive Data For further hscTnT resources including the diagnostic algorithm and an aid in interpretation, copy and paste this link: https://nrl.testcatalog.org/show/hsTrop Current Interpretive Data last revised 2020. Testing performed by: [facility], [address] [place] [address]., [id number] Blood 11/17/2024 6:47 PM CDT 11/17/2024 6:50 PM CDT us Senia Arango BINDERY TECHNICIAN LAB BLOOD ORDERABLES Fin al Result [facility] [address] [facility] Department [place] [address] * eGFR (11/17/2024 6:47 PM CDT) eGFR [...] was last reviewed 2021. Testing performed by: [address] [address] Blood 11/17/2024 6:47 PM CDT 11/17/2024 6:50 PM CDT us Senia Arango NP LAB BLOOD ORDERABLES Fin al Result Performing Organization Address City/State/[facility] Co de Phone Number [facility] [address] [facility] Department of Laboratories [place], [place] [id number] * Differential, auto (11/17/2024 6:47 PM CDT) Pathologist [facility] Neutrophil abs 2.31 1.50 - 6.50 K/cumm Comment:Testing performed by : [address] [address] Imm gran abs 0.01 0.00 - 0.10 K/cumm [facility] Comment:Testing performed by : [address] [address] Lymphocyte abs 1.85 0.80 - 3.30 K/cumm [facility] Comment:Testing performed by : [address] [address] Monocyte abs 0.62 0.20 - 0.80 K/cumm [facility] Comment:Testing performed by : [address] [address] Eosinophil abs 0.27 0.00 - 0.50 K/cumm [facility] Comment:Testing performed by : [address] [address] Basophil abs 0.02 0.00 - 0.10 K/cumm [facility] Comment:Testing performed by : [address] [address] Neutrophil pct 45.5 % [facility] Comment: Interpretive Data Percent cell count reference ranges are not reported, since discordance with absolute values may lead to misinterpretation of CBC data. Current Interpretive Data was last revised on 2017. Testing performed by: [address] [address] Imm gran pct 0.2 % [facility] Comment: Interpretive Data Percent cell count reference ranges are not reported, since discordance with absolute values may lead to misinterpretation of CBC data. Current Interpretive Data was last revised on 2017. Testing performed by: [address] [address] Lymphocyte pct 36.4 % [facility] Comment: Interpretive Data Percent cell count reference ranges are not reported, since discordance with absolute values may lead to misinterpretation of CBC data. Current Interpretive Data was last revised on 2017. Testing performed by: [address] [address] Monocyte pct 12.2 % [facility] Comment: Interpretive Data Percent cell count reference ranges are not reported, since discordance with absolute values may lead to misinterpretation of CBC data. Current Interpretive Data was last revised on 2017. Testing performed by: [address] [address] Eosinophil pct 5.3 % [facility] Comment: Interpretive Data Percent cell count reference ranges are not reported, since discordance with absolute values may lead to misinterpretation of CBC data. Current Interpretive Data was last revised on 2017. Testing performed by: [address] [address] Basophil pct 0.4 % [facility] Comment: Interpretive Data Percent cell count reference ranges are not reported, since discordance with absolute values may lead to misinterpretation of CBC data. Current Interpretive Data was last revised on 2017. Testing performed by: [address] [address] Blood 11/17/2024 6:47 PM CDT 11/17/2024 6:50 PM CDT us Senia Arango BINDERY TECHNICIAN LAB BLOOD ORDERABLES Fin al Result [facility] [address] [facility] Department [place] [address] * (ABNORMAL) CBC with auto differential (11/17/2024 6:47 PM CDT) WBC 5.08 3.80 - 9.90 K/cumm Comment:Testing performed by : [address] [address] Hgb 15.5 13.0 - 17.5 g/dL [facility] Comment:Testing performed by : [address] [address] Hct 47.3 38.9 - 50.3 % [facility] Comment:Testing performed by : [address] [address] Plt 245 150 - 400 K/cumm [facility] Comment:Testing performed by : [address] [address] MPV 8.5(L) 9.1 - 12.3 fL [facility] Comment:Testing performed by : [address] [address] RBC 5.33 4.30 - 5.80 M/cumm [facility] Comment:Testing performed by : [address] [address] MCV 88.7 81.3 - 96.4 fL [facility] Comment:Testing performed by : [address] [address] MCH 29.1 27.1 - 33.3 pg [facility] Comment:Testing performed by : [address] [address] MCHC 32.8 32.3 - 35.7 g/dL [facility] Comment:Testing performed by : [address] [address] RDW CV 12.8 11.1 - 14.9 % [facility] Comment:Testing performed by : [address] [address] RDW SD 41.0 35.7 - 48.1 fL [facility] Comment:Testing performed by : [address] [address] NRBC abs 0.00 0.00 - 0.01 K/cumm [facility] Comment:Testing performed by : [address] [address] Blood Venous blood specimen / Unknown 11/17/2024 6:47 PM CDT 11/17/2024 6:50 PM CDT Senia Arango BINDERY TECHNICIAN LAB BLOOD ORDERABLES Fin al Result [facility] Department of Laboratories [place], [place] [id number] * (ABNORMAL) Comprehensive metabolic panel (11/17/2024 6:47 PM CDT) Sodium 140 135 - 145 mmol/L Comment:Testing performed by : [address] [address] Potassium, pl 4.2 3.3 - 4.9 mmol/L [facility] Comment:Testing performed by : [address] [address] Chloride 105 97 - 110 mmol/L [facility] Comment:Testing performed by : [address] [address] CO2 26 22 - 32 mmol/L [facility] Comment:Testing performed by : [address] [address] Anion gap 9 2 - 15 mmol/L [facility] Comment:Testing performed by : [address] [address] BUN 10 6 - 25 mg/dL [facility] Comment:Testing performed by : [address] [address] Creatinine 1.12 0.80 - 1.30 mg/dL [facility] Comment:Testing performed by : [address] [address] Glucose 122 70 - 199 mg/dL [facility] [...] was last revised 2022. Testing performed by: [address] [address] Calcium 10.0 8.5 - 10.3 mg/dL [facility] Comment:Testing performed by : [address] [address] Bilirubin, total 0.5 0.1 - 1.2 mg/dL [facility] Comment:Testing performed by : [address] [address] Protein, pl 7.2 6.5 - 8.5 g/dL [facility] Comment:Testing performed by : [address] [address] Albumin 4.2 3.5 - 5.0 g/dL [facility] Comment:Testing performed by : [address] [address] Alk phos 84 40 - 130 Units/L [facility] Comment:Testing performed by : [address] [address] ALT 88(H) 7 - 55 Units/L [facility] Comment:Testing performed by : [facility], [address] [place] [address]., [address] AST 55(H) 10 - 50 Units/L [facility] Comment:Testing performed by : [facility], [address] [place] [address]., [address] Blood 11/17/2024 6:47 PM CDT 11/17/2024 6:50 PM CDT us Senia Arango BINDERY TECHNICIAN LAB BLOOD ORDERABLES Fin al Result [facility] [address] [facility] Department [place] [address] * ECG 12 lead (11/16/2024 11:43 PM CDT) Ventricular Rate EKG/Min 84 BPM [facility] Atrial Rate 84 BPM [facility] IA-Interval (MSEC) 180 ms [facility] QRS-Interval (MSEC) 80 ms [facility] QT-Interval (MSEC) 370 ms [facility] QTc 437 ms [facility] P [place] 67 degrees [facility] R [place] 4 degrees [facility] T [place] 27 degrees [facility] Diagnosis Normal sinus rhythm Possible Left atrial enlargement Borderline ECG When compared with ECG of 10-OCT-2024 10:02, No significant change was found Confirmed by MIKIE CHO M.D. ([id number]) on 11/17/2024 3:22:09 PM [facility] 11/16/2024 11:4 3 PM CDT 11/17/2024 3:22 PM CDT us Xiomara Chavis BINDERY TECHNICIAN ECG ORDERABLES Final Resu lt Performing Organization Address City/[facility]/ZIP Co de Phone Number [facility] [employer] [facility] from Last 3 Months Insurance [employer] [facility] MEDICARE ADVANTAGE ([place]) [address] [id number] [employer] [facility] MEDICARE ADVANTAGE Advance Directives For more information, please contact: [phone] * Full Code (Latest Code Status on File) Date Activated Date Inactivated Comments 10/10/2024 1:20 PM 10/11/2024 6:54 PM * Full Code Date Activated Date Inactivated Comments 10/10/2024 12:44 PM 10/10/2024 1:20 PM Care Teams Commercial Leasing Agent Relationship Specialty Start Date End Date Momo Hameed MD [address] [address] PCP - General Family Medicine 12/01/24
--- OUTSIDE RECORDS SUMMARY | 2025-01-15 14:17 | XMS_ITS | Encounter Summary ---
Author Organization [facility] Address [address] [place] [address] Care Team Providers Care Sanitor Name Role Phone , Generic Cornelio NASH Primary Care Provider Unavailable Braxton Klein MD Primary Care Provider [phone] Joe Hunter MD Unavailable Shreya Montanez MD Primary Care Provider [phone] None, Provider Primary Care Provider Unavaila ble Non-Staff, Provider Primary Care Provider Unavai lable None, Provider Primary Care Provider Unavaila ble Encounter Details Date Type Department Care Team (Latest Contact Info) Description 04/18/2018 Abstract [facility] , Generic MD Cornelio Social History Tobacco Use Types Packs/Day Years Used Date Smoking Tobacco: Never Smokeless Tobacco: Never Alcohol Use Standard Drinks/Week Comments No 0 (1 standard drink = 0.6 oz pur e alcohol) Sex and Gender Information Value Date Recorded Sex Assigned at Male 07/09/2024 6:42 PM DIRECTOR OF REGULATORY AFFAIRS Legal Sex Male 10:18 AM DIRECTOR OF REGULATORY AFFAIRS Gender Identity Not on file Sexual Orientation [...] Rule Out 05/28/2021 05/28/2021 05/29/2021 12:38 PM DIRECTOR OF REGULATORY AFFAIRS COVID-19 Rule Out 04/22/2022 04/22/2022 04/22/2022 2:13 PM DIRECTOR OF REGULATORY AFFAIRS COVID-19 Confirmed 04/22/2022 04/22/2022 12:32 AM DIRECTOR OF REGULATORY AFFAIRS COVID-19 Rule Out 02/10/2024 02/10/2024 02/10/2024 7:07 PM CDT COVID-19 Confirmed 02/10/2024 02/10/2024 12:32 AM CDT COVID-19 Rule Out 07/09/2024 07/09/2024 07/09/2024 7:37 PM DIRECTOR OF REGULATORY AFFAIRS documented as of this encounter Care Teams Sanitor Relationship Specialty Start Date End Date Saurabh Nash MD PCP - General FAMILY PRACTICE 09/23/17 06/12/18 Braxton Klein MD 3 [facility] [address] [place] [address] PCP - General FAMILY PRACTICE 06/13/18 03/14/21 Shreya Montanez MD [facility]. [facility] [address] [place] [address] PCP - General FAMILY PRACTICE 03/15/21 03/06/22 None, ProviderMD PCP - General 03/07/22 09/19/24 Non-Staff, Provider PCP - General UNKNOWN PHYSICIAN SPECIALTY 09/20/24 11/17/24 None, Provider, PCP - General UNKNOWN PHYSICIAN SPECIALTY 11/18/24 Joe Hunter MD [facility]. [facility] [address] [place] [address] [employer] Associate INTERVENTIONAL CARDIOLOGY 07/24/18 documented as of this encounter
--- OUTSIDE RECORDS SUMMARY | 2025-01-15 14:17 | XMS_ITS | Encounter Summary ---
Author Organization [facility] Address [address] [place] [address] Care Team Providers Care General Distillery Worker Name Role Phone Momo Hameed MD Primary Care Provider [phone] Encounter Details Date Type Department Care Team (Latest Contact Info) Description 12/06/2024 Results Follow-Up [facility] Gastroenterology at [address] [place] [address] Raghavendra Coronado MD [address] [place] [address] [address] [place], [place] [id number] Surgical pathology Social History Tobacco Use Types Packs/Day Years Used Date Smoking Tobacco: Never [facility] [employer] Answer Date Recorded In the past 12 [...] often do you attend chur ch or yazidi services? Never 10/11/2024 Do you belong to any clubs o r organizations such as yarsanism groups, unions, fraternal or athletic groups, or [...] any time in the past 12 [facility], were you homeless or living in a senior living (including now)? No 10/11/2024 Personal Safety Answer Date Recorded Have you ever been in or are you currently in a harmful physical or emotional relationship or is someone making you feel afraid or unsafe? Patient unable to answer 12/04/2024 Sex and Gender Information Value Date Recorded Sex Assigned at Not on file Legal Sex Male 1:35 AM INDUSTRIAL ORGANIZATION MANAGER Gender Identity Not on file Sexual Orientation Not on file documented as of this encounter Plan of Treatment Not on file documented as of this encounter Visit Diagnoses Not on filedocumented in this encounter Care Teams General Distillery Worker Relationship Specialty Start Date End Date Momo Hameed MD [address] [address] PCP - General Family Medicine 12/01/24 documented as of this encounter
--- OUTSIDE RECORDS SUMMARY | 2025-01-15 14:17 | XMS_ITS | Encounter Summary ---
Author Organization [facility] Address [address] [place] [address] Care Team Providers Care Computer Numerical Control Operator Name Role Phone Momo Hameed MD Primary Care Provider [phone] Reason for Referral * Consultation (Routine) - Pending Review Specialty Diagnoses / Procedures Referred By Pete grande Referred To Contact General Surgery Diagnoses Calculus of gallbladder without cholecystitis without obstruction Biliary colic Clara Pelletier PA [address] [place] [address] Phone: tel: fax: Tyler Diehl MD [facility] [address] Phone: tel: fax: Referral ID Status Reason Start Date Expiration Date Visits Requested Visits Authorized [id number] Pending Review Specialty Services Required 01/13/2025 02/12/2026 1 1 Question Answer Please select the performing region: External Order [171] To provider: TYLER DIEHL [[id number]] # of visits: 1 Reason for Visit * Reason Comments Hiccups Abdominal Pain Encounter Details Date Type Department Care Team ([facility] st Contact Info) Description 01/13/2025 7:36 PM CDT - 01/13/2025 8:[address] [facility] Emergency Department [address] [place], [place] [address] Hiccups (Primary Dx); Calculus of gallbladder without cholecystitis without obstruction; Biliary colic Discharge Disposition: Discharge to home or self care Social History Tobacco Use Types Packs/Day Years Used Date Smoking Tobacco: Never [facility] Utilities Answer Date Recorded In the [...] often do you attend chur ch or rastafari services? Never 10/11/2024 Do you belong to any clubs o r organizations such as jehovah's witness groups, unions, fraternal or athletic groups, or [...] any time in the past [facility], were you homeless or living in a nursing home (including now)? No 10/11/2024 Personal Safety Answer Date Recorded Have you ever been in or are you currently in a harmful physical or emotional relationship or is someone making you feel afraid or unsafe? 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 Please follow up with your primary care [...] Care Everywhere. * Biliary Colic (AfterCare(R) Instructions(ER/ED)) ([facility]) * Gallstones (AfterCare(R) Instructions(ER/ED)) ([facility]) documented in this encounter Medications at Time [...] ANGIOGRAPHY AND WITH OR WITHOUT LEFT VENTRICULOGRAM 05483; Surgeon: Edgardo Beth MD; Location: [facility] CARDIAC STUDY ABROAD COORDINATOR; Service: Cardiovascular; Laterality: N/A; UPPER GASTROINTESTINAL ENDOSCOPY [...] mL (100 mL intravenous Contrast Given 01/13/25 7517) CURRENT HOME MEDICATIONS Current Facility-Administered Medications: ketorolac [...] Rfl: 0 al & mag hydroxide with xvqzxrlgeay-slpqpfkdilschxr-hzjwjmxaa (MAGIC MOUTHWASH) suspension 1-1-1, Swish and swallow [...] INSTRUCTED TO FOLLOW UP Tyler Diehl MD [address] [place] [address] Call in 1 week DISCHARGE MEDICATIONS Your medication list START taking these medications Instructions Last Dose Given Next Dose Due ketorolac 10 mg tablet Commonly known as: TORADOL Take 1 tablet (10 mg total) by mouth every 6 (six) hours as needed for pain CHANGE how you take these medications Instructions Last Dose Given Next Dose Due al & mag hydroxide with vwrsztgpcis-aouxlffntqphkst-yqwvdmazk (MAGIC MOUTHWASH) suspension 1-1-1 What changed: when [...] Your Medications These medications were sent to [id number] [address] Hours: 24-hours al & mag hydroxide with wifnhspcmjv-selzlhoskyjgxbo-ahwfzjgev (MAGIC MOUTHWASH) suspension 1-1-1 ketorolac 10 mg tablet metoclopramide 10 mg tablet This examination was transcribed using the WP F[employer] voice recognition system without human licensed loan officer. In an effort to expedite patient care, this report has not been adjusted for typographical, grammatical, and syntax by a trained medical csr. Clara Pelletier PA 01/13/252005 * Nanci Gonzalez [...] Data last revised 2020. Testing performed by: [address] [address] Trop T hs delta 0 ng/L [facility] Comment:Testing performed by : [address] [address] Trop T hs interp Insignificant [facility] Comment:Testing performed by : [place] [address], [place]., [address] Blood 01/13/2025 5:45 PM CDT 01/13/2025 5:47 PM CDT us Clara VAS[facility] LAB BLOOD ORDERABLES Final R esult [facility] [address] [facility] Department [place] [address] * CT Abdomen Pelvis W [...] Nasir Duncan M.D. LC: FARSHAD Report ID: [id number] Reading Location: [id number] Procedure Note Deisy Duncan MD - 01/13/2025 [...] Nasir Duncan M.D. LC: FARSHAD Report ID: [id number] Reading Location: [place] [address] PROCEDURES Final Resu lt * Urinalysis reflex to microscopic and culture Urine (01/13/2025 4:06 PM CDT) Color, ur Yellow Yellow Comment:Testing performed by : [address] [address] Clarity, ur Clear Clear [facility] Comment:Testing performed by : [address] [address] Specific gravity, ur 1.019 1.003 - 1.030 [facility] Comment:Testing performed by : [address] [address] pH, urine 6.0 [facility] Comment: Interpretive Data U rine pH is affected by diet, medications, systemic acid-base disturbances, and renal tubular function. pH may affect urinary stone formation. For example, urine pH below 6.0 may help reduce the tendency for calcium phosphate stones and pH greater than 6.0 may reduce the tendency for uric acid stone formation. Source: [employer]ach[employer] Current Interpretive Data was last revised on 2017 Testing performed by: [address] [address] Protein, ur ql Negative Negative [facility] Comment:Testing performed by : [address] [address] Glucose, ur ql Negative Negative [facility] Comment:Testing performed by : [facility], [address] [place] [address], [place]., [address] Ketones, ur Negative Negative [facility] Comment:Testing performed by : [address], [place]., [address] Bilirubin, ur Negative Negative [facility] Comment:Testing performed by : [address], [place]., [address] Blood, ur Negative Negative [facility] Comment:Testing performed by : [address], [place]., [address] Urobilinogen, ur <2.0 <2.0 mg/dL [facility] Comment:Testing performed by : [address], [place]., [address] Nitrite, ur Negative Negative [facility] Comment:Testing performed by : [address], [place]., [address] Leukocyte esterase, ur Negative Negative [facility] Comment:Testing performed by : [address], [place]., [address] UA reflex comment Reflex conditions for microscopic UA and culture not met. [facility] Comment:Testing performed by : [address], [place]., [address] Urine 01/13/2025 4:06 PM CDT 01/13/2025 4:08 PM CDT us Clara VASQUEZ LAB MICROBIOLOGY - GENERAL O RDERABLES Final Result [facility] [address] [facility] Department of Laboratories [address] [place], [place] [id number] * eGFR (01/13/2025 3:34 PM CDT) eGFR [...] was last reviewed 2021. Testing performed by: [address] [address] Blood 01/13/2025 3:34 PM CDT 01/13/2025 3:39 PM CDT us Clara VASQUEZ LAB BLOOD ORDERABLES Final R esult [facility] Department [place] [address] * Differential, auto (01/13/2025 3:34 PM CDT) Neutrophil abs 4.10 1.50 - 6.50 K/cumm Comment:Testing performed by : [address] [address] Imm gran abs 0.02 0.00 - 0.10 K/cumm [facility] Comment:Testing performed by : [address] [address] Lymphocyte abs 1.31 0.80 - 3.30 K/cumm [facility] Comment:Testing performed by : [address] [address] Monocyte abs 0.61 0.20 - 0.80 K/cumm [facility] Comment:Testing performed by : [address] [address] Eosinophil abs 0.12 0.00 - 0.50 K/cumm [facility] Comment:Testing performed by : [address] [address] Basophil abs 0.02 0.00 - 0.10 K/cumm [facility] Comment:Testing performed by : [address] [address] Neutrophil pct 66.4 % [facility] Comment: Interpretive Data Percent cell count reference ranges are not reported, since discordance with absolute values may lead to misinterpretation of CBC data. Current Interpretive Data was last revised on 2017. Testing performed by: [address] [address] Imm gran pct 0.3 % [facility] Comment: Interpretive Data Percent cell count reference ranges are not reported, since discordance with absolute values may lead to misinterpretation of CBC data. Current Interpretive Data was last revised on 2017. Testing performed by: [address] [address] Lymphocyte pct 21.2 % [facility] Comment: Interpretive Data Percent cell count reference ranges are not reported, since discordance with absolute values may lead to misinterpretation of CBC data. Current Interpretive Data was last revised on 2017. Testing performed by: [address] [address] Monocyte pct 9.9 % [facility] Comment: Interpretive Data Percent cell count reference ranges are not reported, since discordance with absolute values may lead to misinterpretation of CBC data. Current Interpretive Data was last revised on 2017. Testing performed by: [address] [address] Eosinophil pct 1.9 % [facility] Comment: Interpretive Data Percent cell count reference ranges are not reported, since discordance with absolute values may lead to misinterpretation of CBC data. Current Interpretive Data was last revised on 2017. Testing performed by: [address] [address] Basophil pct 0.3 % [facility] Comment: Interpretive Data Percent cell count reference ranges are not reported, since discordance with absolute values may lead to misinterpretation of CBC data. Current Interpretive Data was last revised on 2017. Testing performed by: [address] [address] Blood 01/13/2025 3:34 PM CDT 01/13/2025 3:39 PM CDT Clara VASQUEZ LAB BLOOD ORDERABLES Final R esult Performing Organization Address [facility] Co de Phone Number [facility] [address] [place] [address] * Troponin T high-sensitivity series (baseline, 2hr, 4hr, 6hr) (01/13/2025 3:34 PM CDT) Trop T hs 10 <=22 ng/L Comment: Interpretive Data For further hscTnT resources including the diagnostic algorithm and an aid in interpretation, copy and paste this link: https://nrl.testcatalog.org/show/hsTrop Current Interpretive Data last revised 2020. Testing performed by: [address] [address] Blood 01/13/2025 3:34 PM CDT 01/13/2025 3:39 PM CDT Clara VASQUEZ LAB BLOOD ORDERABLES Final R esult Performing Organization Address [facility] Co de Phone Number KEILA[address] [address] * Lipase (01/13/2025 3:34 PM CDT) Pathologist [facility] Lipase 33 10 - 99 Units/L Comment:Testing performed by : [address] [address] Blood Venous blood specimen / Unknown 01/13/2025 3:34 PM CDT 01/13/2025 3:39 PM CDT Clara VASQUEZ LAB BLOOD ORDERABLES Final R esult Performing Organization Address City/[facility]/ZIP Co de Phone Number KEILA[address] [place] [address] * Comprehensive metabolic panel (01/13/2025 3:34 PM CDT) Sodium 141 135 - 145 mmol/L Comment:Testing performed by : [address] [address] Potassium, pl 4.0 3.3 - 4.9 mmol/L [facility] Comment:Testing performed by : [address], [place]., [address] Chloride 104 97 - 110 mmol/L [facility] Comment:Testing performed by : [address], [place]., [address] CO2 24 22 - 32 mmol/L [facility] Comment:Testing performed by : [address], [place]., [address] Anion gap 13 2 - 15 mmol/L [facility] Comment:Testing performed by : [address], [place]., [address] BUN 12 6 - 25 mg/dL [facility] Comment:Testing performed by : [address] [address] Creatinine 0.90 0.80 - 1.30 mg/dL [facility] Comment:Testing performed by : [address] [address] Glucose 101 70 - 199 mg/dL [facility] [...] was last revised 2022. Testing performed by: [address] [address] Calcium 9.5 8.5 - 10.3 mg/dL [facility] Comment:Testing performed by : [address] [address] Bilirubin, total 0.7 0.1 - 1.2 mg/dL [facility] Comment:Testing performed by : [address] [address] Protein, pl 7.7 6.5 - 8.5 g/dL [facility] Comment:Testing performed by : [address], [place]., [address] Albumin 4.2 3.5 - 5.0 g/dL [facility] Comment:Testing performed by : [address] [address] Alk phos 121 40 - 130 Units/L [facility] Comment:Testing performed by : [address], [place]., [address] ALT 29 7 - 55 Units/L [facility] Comment:Testing performed by : [address] [address] AST 22 10 - 50 Units/L [facility] Comment:Testing performed by : [address] [address] Blood 01/13/2025 3:34 PM CDT 01/13/2025 3:39 PM CDT us Clara VASQUEZ LAB BLOOD ORDERABLES Final R esult [facility] [address] [facility] Department [place] [address] * (ABNORMAL) CBC with auto differential (01/13/2025 3:34 PM CDT) [facility] WBC 6.18 3.80 - 9.90 K/cumm Comment:Testing performed by : [address] [address] Hgb 15.5 13.0 - 17.5 g/dL [facility] Comment:Testing performed by : [address] [address] Hct 46.3 38.9 - 50.3 % [facility] Comment:Testing performed by : [address] [address] Plt 272 150 - 400 K/cumm [facility] Comment:Testing performed by : [address] [address] MPV 8.3(L) 9.1 - 12.3 fL [facility] Comment:Testing performed by : [address] [address] RBC 5.38 4.30 - 5.80 M/cumm [facility] Comment:Testing performed by : [address] [address] MCV 86.1 81.3 - 96.4 fL [facility] Comment:Testing performed by : [address] [address] MCH 28.8 27.1 - 33.3 pg [facility] Comment:Testing performed by : [address] [address] MCHC 33.5 32.3 - 35.7 g/dL [facility] Comment:Testing performed by : [address] [address] RDW CV 12.7 11.1 - 14.9 % [facility] Comment:Testing performed by : [address] [address] RDW SD 39.2 35.7 - 48.1 fL [facility] Comment:Testing performed by : [address] [address] NRBC abs 0.00 0.00 - 0.01 K/cumm [facility] Comment:Testing performed by : [address] [address] Blood Venous blood specimen / Unknown 01/13/2025 3:34 PM CDT 01/13/2025 3:39 PM CDT us Clara VASQUEZ LAB BLOOD ORDERABLES Final R esult [facility] [address] [facility] Department [place] [address] documented in this encounter Visit [...] mL every 6 (six) hours 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
--- OUTSIDE RECORDS SUMMARY | 2025-01-15 14:17 | XMS_ITS | Clinical Summary ---
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 Emergency Department [address] [place] [phone] Hiccups (Primary Dx); Calculus of gallbladder without cholecystitis without obstruction; Biliary colic Discharge Disposition: Discharge to home or self care 01/04/20 25 Telephone [facility] Gastroenterology at [address] [place] [address] Cynthia Martinez NP 12/27/19 25 Telephone [facility] Cardiology [address] [place] [address] [address] [place] [address] Edgardo Beth MD 12/18/19 Documentation [facility] Medical [facility] Gastroenterology at [address] [place] [address] Clara Ivy DNP Hiccups 12/18/19 Telephone [facility] Gastroenterology at [address] [place] [phone] Cynthia Martinez NP 12/15/19 4:49 PM CDT - 12/15/19 7:[address] [facility] Emergency Department [address] [place] [phone] Medication refill (Primary Dx) Discharge Disposition: Discharge to home or self care 12/14/19 5:39 PM CDT - 12/14/19 5:[address] [facility] Emergency Department [address] [place] [phone] Discharge Disposition: Left without being seen 12/07/19 2:45 PM CDT Office Visit [facility] Cardiology [address] [place] [address] [address] [place] [address] Edgardo Beth MD NSTEMI (non-ST elevated myocardial infarction) (HCC) (Primary Dx) 12/07/19 Results Follow-Up [facility] Gastroenterology at [address] [place] [address] Raghavendra Coronado MD Surgical pathology 12/05/19 12:15 PM CDT Anesthesia Event [facility] GI Lab [address] [place] [address] Moreno Alejandra MD 12/05/19 12:00 PM CDT - 12/05/19 25 12:30 PM CDT Surgery [facility] GI Lab [address] [place] [address] Raghavendra Coronado MD ESOPHAGOGASTRODUODENOSCOPY BALLOON DILATION <30MM 12/05/19 25 10:38 AM CDT - 12/05/19 25 1:20 PM CDT Hospital Encounter [facility] GI Lab [address] [place] [address] Raghavendra Coronado MD Hiccups; Dysphagia, unspecified type Discharge Disposition: Discharge to home or self care 12/04/19 25 Orders Only [facility] Gastroenterology at [address] [address] Raghavendra Coronado MD Hiccups (Primary Dx); Dysphagia, unspecified type 12/02/19 10:02 AM CDT - 12/02/19 12:[address] [facility] Emergency Department [address] [place] [address] [phone] Brandon Bradley MD Syncope, unspecified syncope type (Primary Dx) Discharge Disposition: Discharge to home or self care 12/01/19 25 Telephone [facility] Cardiology [address] [place] [phone] Edgardo Beth MD Cardiac Clearance 11/30/19 6:34 PM CDT - 11/30/19 8:[address] [facility] Emergency Department [address] [place] [address] [phone] Aj Restrepo Jr., MD Intractable hiccups (Primary Dx); Dysphagia, unspecified type; Gastroesophageal reflux disease, unspecified whether esophagitis present Discharge Disposition: Discharge to home or self care 11/30/19 25 Telephone [facility] Gastroenterology at [address] [address] Moshe Swift 11/23/19 10:00 AM CDT Office Visit [facility] Gastroenterology at [address] [phone] Cynthia Martinez NP Hiccups (Primary Dx); Dysphagia, unspecified type 11/23/19 2:46 AM CDT - 11/23/19 3:[address] [facility] Emergency Department [address] [place] [phone] Ligia Woods MD Intractable hiccups (Primary Dx) Discharge Disposition: Discharge to home or self care 11/21/19 9:22 PM CDT - 11/22/19 12:33 AM CDT [facility] Emergency Department [address] [place] [address] Edin Moncada DO Anxiety (Primary Dx) Discharge Disposition: Discharge to home or self care 11/20/19 9:38 PM CDT - 11/20/19 11:28 PM CDT [facility] Emergency Department [address] [place] [address] Aj Restrepo Jr., MD Hiccups (Primary Dx); Gastroesophageal reflux disease with esophagitis without hemorrhage; Esophagitis Discharge Disposition: Discharge to home or self care 11/20/19 1:46 AM CDT - 11/20/19 7:17 AM CDT [facility] Emergency Department [address] [place] [address] Aj Restrepo Jr., MD Intractable hiccups (Primary Dx); Gastroesophageal reflux disease, unspecified whether esophagitis present Discharge Disposition: Discharge to home or self care 11/20/19 Telephone [facility] Gastroenterology at [address] [place] [phone] Raghavendra Coronado MD 11/18/19 7:12 PM CDT - 11/18/19 8:09 PM T [facility] Emergency Department [address] [place] [address] Sorin Parkinson MD Chronic hiccups (Primary Dx) Discharge Disposition: Discharge to home or self care 11/17/19 25 10:48 PM CDT - 11/18/19 25 12:22 AM T [facility] Emergency Department [address] [place] [phone] Hiccups (Primary Dx) Discharge Disposition: Discharge to home or self care 05/06/20 25 Telephone [facility] Cardiology [address] [facility] [address] [place] [address] Edgardo Beth MD from Last 3 Months Surgical History Surgery Date Site/Laterality Comments CARDIAC CATHETERIZATION 10/10/2024 N/A Procedure: LEFT HEART CATHETERIZATION WITH CORONARY ANGIOGRAPHY AND WITH OR WITHOUT LEFT VENTRICULOGRAM 26475; Surgeon: Edgardo Beth MD; Location: [facility] CARDIAC V GROOVE CUTTER; Service: Cardiovascular; Laterality: N/A; UPPER GASTROINTESTINAL ENDOSCOPY [...] Packs/Day Years Used Date Smoking Tobacco: Never [facility] [employer] Answer Date Recorded In the past 12 months has [employer], [employer], or water [employer] threatened to shut off services in your [...] you attend [employer] [facility] [facility] or yazidi services? Never 10/11/2024 Do you belong to any clubs o r organizations such as anglican groups, unions, fraternal or athletic groups, or [...] any time in the past 12 m [facility], were you homeless or living in a custodial (including now)? No 10/11/2024 Personal Safety Answer Date Recorded Have you ever been in or are you currently in a harmful physical or emotional relationship or is someone making you feel afraid or unsafe? 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 Testing performed by: [address] [address] Trop T hs delta 0 ng/L [facility] Comment:Testing performed by : [address] [address] Trop T hs interp Insignificant [facility] Comment:Testing performed by : [address] [address] Blood 01/13/2025 5:45 PM CDT 01/13/2025 5:47 PM CDT Clara VASQUEZ LAB BLOOD ORDERABLES Final R esult [facility] [address] [facility] [place] [address] * CT Abdomen Pelvis W Contrast (01/13/2025 [...] Nasir Duncan M.D. LC: FARSHAD Report ID: [id number] Reading Location: [place] [address] Procedure Note Deisy Duncan MD - 01/13/2025 [...] Nasir Duncan M.D. LC: FARSHAD Report ID: [id number] Reading Location: [place] [address] PROCEDURES Final Resu lt * Urinalysis reflex to microscopic and culture Urine (01/13/2025 4:06 PM CDT) Color, ur Yellow Yellow Comment:Testing performed by : [address] [address] Clarity, ur Clear Clear [facility] Comment:Testing performed by : [address] [address] Specific gravity, ur 1.019 1.003 - 1.030 [facility] Comment:Testing performed by : [address] [address] pH, urine 6.0 [facility] Comment: Interpretive Data U rine pH is affected by diet, medications, systemic acid-base disturbances, and renal tubular function. pH may affect urinary stone formation. For example, urine pH below 6.0 may help reduce the tendency for calcium phosphate stones and pH greater than 6.0 may reduce the tendency for uric acid stone formation. Source: [facility] Current Interpretive Data was last revised on 2017 Testing performed by: [address] [address] Protein, ur ql Negative Negative [facility] Comment:Testing performed by : [address] [address] Glucose, ur ql Negative Negative [facility] Comment:Testing performed by : [address] [address] Ketones, ur Negative Negative [facility] Comment:Testing performed by : [address] [address] Bilirubin, ur Negative Negative [facility] Comment:Testing performed by : [address] [address] Blood, ur Negative Negative [facility] Comment:Testing performed by : [address] [address] Urobilinogen, ur <2.0 <2.0 mg/dL [facility] Comment:Testing performed by : [address], [place]., [address] Nitrite, ur Negative Negative [facility] Comment:Testing performed by : [address] [address] Leukocyte esterase, ur Negative Negative [facility] Comment:Testing performed by : [address], [place]., [address] UA reflex comment Reflex conditions for microscopic UA and culture not met. [facility] Comment:Testing performed by : [address] [address] Urine 01/13/2025 4:06 PM CDT 01/13/2025 4:08 PM CDT us Clara VASQUEZ LAB MICROBIOLOGY - GENERAL O RDERABLES Final Result [facility] [address] [facility] Department [place] [address] * Troponin T high-sensitivity series (baseline, 2hr, 4hr, 6hr) (01/13/2025 3:34 PM CDT) Trop T hs 10 <=22 ng/L Comment: Interpretive Data For further hscTnT resources including the diagnostic algorithm and an aid in interpretation, copy and paste this link: https://nrl.testcatalog.org/show/hsTrop Current Interpretive Data last revised 2020. Testing performed by: [address] [address] Blood 01/13/2025 3:34 PM CDT 01/13/2025 3:39 PM CDT us Clara VASQUEZ LAB BLOOD ORDERABLES Final R esult Performing Organization Address [facility] de Phone Number [place] [phone] [facility] [place] [address] * eGFR (01/13/2025 3:34 PM CDT) eGFR [...] was last reviewed 2021. Testing performed by: [address] [address] Blood 01/13/2025 3:34 PM CDT 01/13/2025 3:39 PM CDT Clara VASQUEZ LAB BLOOD ORDERABLES Final R esult Performing Organization Address City/[facility] Co de Phone Number [facility] [address] [facility] [place] [address] * Differential, auto (01/13/2025 3:34 PM CDT) Neutrophil abs 4.10 1.50 - 6.50 K/cumm Comment:Testing performed by : [address] [address] Imm gran abs 0.02 0.00 - 0.10 K/cumm [facility] Comment:Testing performed by : [address] [address] Lymphocyte abs 1.31 0.80 - 3.30 K/cumm [facility] Comment:Testing performed by : [address] [address] Monocyte abs 0.61 0.20 - 0.80 K/cumm [facility] Comment:Testing performed by : [address], [place]., [address] Eosinophil abs 0.12 0.00 - 0.50 K/cumm [facility] Comment:Testing performed by : [address], [place]., [address] Basophil abs 0.02 0.00 - 0.10 K/cumm [facility] Comment:Testing performed by : [address] [address] Neutrophil pct 66.4 % [facility] Comment: Interpretive Data Percent cell count reference ranges are not reported, since discordance with absolute values may lead to misinterpretation of CBC data. Current Interpretive Data was last revised on 2017. Testing performed by: [address] [address] Imm gran pct 0.3 % [facility] Comment: Interpretive Data Percent cell count reference ranges are not reported, since discordance with absolute values may lead to misinterpretation of CBC data. Current Interpretive Data was last revised on 2017. Testing performed by: [address] [address] Lymphocyte pct 21.2 % [facility] Comment: Interpretive Data Percent cell count reference ranges are not reported, since discordance with absolute values may lead to misinterpretation of CBC data. Current Interpretive Data was last revised on 2017. Testing performed by: [address] [address] Monocyte pct 9.9 % [facility] Comment: Interpretive Data Percent cell count reference ranges are not reported, since discordance with absolute values may lead to misinterpretation of CBC data. Current Interpretive Data was last revised on 2017. Testing performed by: [address] [address] Eosinophil pct 1.9 % [facility] Comment: Interpretive Data Percent cell count reference ranges are not reported, since discordance with absolute values may lead to misinterpretation of CBC data. Current Interpretive Data was last revised on 2017. Testing performed by: [address] [address] Basophil pct 0.3 % [facility] Comment: Interpretive Data Percent cell count reference ranges are not reported, since discordance with absolute values may lead to misinterpretation of CBC data. Current Interpretive Data was last revised on 2017. Testing performed by: [address] [address] Blood 01/13/2025 3:34 PM CDT 01/13/2025 3:39 PM CDT us Clara VASQUEZ LAB BLOOD ORDERABLES Final R esult [facility] [address] [facility] [place] [address] * (ABNORMAL) CBC with auto differential (01/13/2025 3:34 PM CDT) WBC 6.18 3.80 - 9.90 K/[facility] Comment:Testing performed by : [address] [address] Hgb 15.5 13.0 - 17.5 g/dL [facility] Comment:Testing performed by : [address] [address] Hct 46.3 38.9 - 50.3 % [facility] Comment:Testing performed by : [address] [address] Plt 272 150 - 400 K/cumm [facility] Comment:Testing performed by : [address] [address] MPV 8.3(L) 9.1 - 12.3 fL [facility] Comment:Testing performed by : [address] [address] RBC 5.38 4.30 - 5.80 M/cumm [facility] Comment:Testing performed by : [address] [address] MCV 86.1 81.3 - 96.4 fL [facility] Comment:Testing performed by : [address] [address] MCH 28.8 27.1 - 33.3 pg [facility] Comment:Testing performed by : [address] [address] MCHC 33.5 32.3 - 35.7 g/dL [facility] Comment:Testing performed by : [address] [address] RDW CV 12.7 11.1 - 14.9 % [facility] Comment:Testing performed by : [address] [address] RDW SD 39.2 35.7 - 48.1 fL [facility] Comment:Testing performed by : [address] [address] NRBC abs 0.00 0.00 - 0.01 K/cumm [facility] Comment:Testing performed by : [address] [address] Blood Venous blood specimen / Unknown 01/13/2025 3:34 PM CDT 01/13/2025 3:39 PM CDT us Clara VASQUEZ LAB BLOOD ORDERABLES Final R esult [facility] [address] [facility] Department of Laboratories [place], [place] [id number] * Lipase (01/13/2025 3:34 PM CDT) Lipase 33 10 - 99 Units/L Comment:Testing performed by : [address] [address] Blood Venous blood specimen / Unknown 01/13/2025 3:34 PM CDT 01/13/2025 3:39 PM CDT Clara VASQUEZ LAB BLOOD ORDERABLES Final R esult [facility] [address] [facility] Department [place] [address] * Comprehensive metabolic panel (01/13/2025 3:34 PM CDT) Sodium 141 135 - 145 mmol/L Comment:Testing performed by : [address] [address] Potassium, pl 4.0 3.3 - 4.9 mmol/L [facility] Comment:Testing performed by : [address] [address] Chloride 104 97 - 110 mmol/L [facility] Comment:Testing performed by : [address] [address] CO2 24 22 - 32 mmol/L [facility] Comment:Testing performed by : [address] [address] Anion gap 13 2 - 15 mmol/L [facility] Comment:Testing performed by : [address] [address] BUN 12 6 - 25 mg/dL [facility] Comment:Testing performed by : [address] [address] Creatinine 0.90 0.80 - 1.30 mg/dL [facility] Comment:Testing performed by : [address] [address] Glucose 101 70 - 199 mg/dL [facility] [...] was last revised 2022. Testing performed by: [address] [address] Calcium 9.5 8.5 - 10.3 mg/dL [facility] Comment:Testing performed by : [address] [address] Bilirubin, total 0.7 0.1 - 1.2 mg/dL [facility] Comment:Testing performed by : [address] [address] Protein, pl 7.7 6.5 - 8.5 g/dL [facility] Comment:Testing performed by : [address] [address] Albumin 4.2 3.5 - 5.0 g/dL [facility] Comment:Testing performed by : [address], [address] Alk phos 121 40 - 130 Units/L [facility] Comment:Testing performed by : [address] [address] ALT 29 7 - 55 Units/L [facility] Comment:Testing performed by : [address] [address] AST 22 10 - 50 Units/L [facility] Comment:Testing performed by : [address] [address] Blood 01/13/2025 3:34 PM CDT 01/13/2025 3:39 PM CDT Clara VASQUEZ LAB BLOOD ORDERABLES Final R esult [facility] [address] [facility] Department [place] [address] * Surgical pathology (12/04/2024 12:26 PM CDT) Tissue (Gastric/Stomach biopsy) 12/04/2024 12:26 PM CDT Comment:Cold biopsy Tissue specimen (specimen) (Esophageal biopsy) 12/04/2024 12:28 PM CDT Comment:Cold biopsy Tissue specimen (specimen) (Esophageal biopsy) 12/04/2024 12:30 PM CDT Comment:Cold biopsy Narrative PATHOLOGY [facility] - 12/05/2024 1:19 PM CDT [facility] Department of Pathology [address] [place] [address] Note to Patients: This report may contain [...] : 1980 (Age: 44) Gender: M Address: [address] [place] [address] Hospital #: [id number] Service: Gastro Location: Patient Type: [facility] OUTPATIENT Taken: 12/04/2024 Received: 12/04/2024 Accessioned: 12/04/2024 [...] cm. Submitted entirely. Labeled C1. Jar 0. [facility]/12/04/2024 14:36 CHRISTINA Ibarra Microscopic slide review and interpretation for this case was performed at [facility], Department of Surgical Pathology, [address] [place], [place] [id number], [place] [address] CLIA # [id number] us Raghavendra Coronado MD LAB PATHOLOGY ORDERABLES Final R esult PATHOLOGY [facility] * EGD (12/04/2024 12:15 PM CDT) Anatomical Region Laterality Modality Other Narrative Procedure Note Raghavendra Coronado MD - 12/04/2024 12:15 PM CDT [facility] GI ENDOSCOPY Patient Name: Dorothy Forman Procedure Date: 12/04/2024 12:15 PM Date of : 1980 Admit Type: Outpatient Age: 44 Gender: Male Attending MD: Raghavendra Coronado M.D. Room: [facility] ENDOSCOPY ROOM 03 Note Status: Finalized [...] On: 12/04/2024 12:15 PM Recognized by the [employer] for promoting quality in endoscopy Raghavendra Coronado MD ENDOSCOPY PROCEDURES Final Resul t * Troponin T high-sensitivity 2-hour (12/01/2024 11:41 AM CDT) Trop T hs 10 <=22 ng/L Comment: Interpretive Data For further hscTnT resources including the diagnostic algorithm and an aid in interpretation, copy and paste this link: https://nrl.testcatalog.org/show/hsTrop Current Interpretive Data last revised 2020. Testing performed by: [address] [address] Trop T hs delta -2 ng/L [facility] Comment:Testing performed by : [address] [address] Trop T hs interp Insignificant [facility] Comment:Testing performed by : [address] [place] [address] Blood 12/01/2024 11:4 1 AM CDT 12/01/2024 11:47 AM CDT us Brandon Bradley MD LAB BLOOD ORDERABLES F inal Result [facility] [address] [facility] Department [place] [address] * XR Chest 1 Vw Portable (if [...] Kristy Avery M.D. TW: DARRIN Report ID: [id number] Reading Location: [id number] Procedure Note rKisty Avery MD - 12/01/2024 EXAM DESCRIPTION: XR [...] Kristy Avery M.D. TW: DARRIN Report ID: [id number] Reading Location: [id number] us Brandon Bradley MD IMG XR PROCEDURES Graciela l Result * Troponin T high-sensitivity series (baseline, 2hr, 4hr, 6hr) (12/01/2024 10:00 AM CDT) Trop T hs 12 <=22 ng/L Comment: Interpretive Data For further hscTnT resources including the diagnostic algorithm and an aid in interpretation, copy and paste this link: https://nrl.testcatalog.org/show/hsTrop Current Interpretive Data last revised 2020. Testing performed by: [facility], [address] [place] [address]., [address] Blood 12/01/2024 10:0 0 AM CDT 12/01/2024 10:04 AM CDT us Brandon Bradley MD LAB BLOOD ORDERABLES F inal Result [facility] [address] [facility] Department [place] [address] * eGFR (12/01/2024 10:00 AM CDT) eGFR [...] was last reviewed 2021. Testing performed by: [address] [address] Blood 12/01/2024 10:0 0 AM CDT 12/01/2024 10:04 AM CDT us Brandon Bradley MD LAB BLOOD ORDERABLES F inal Result [facility] [address] [facility] Department [place] [address] * (ABNORMAL) Differential, auto (12/01/2024 10:00 AM CDT) Neutrophil abs 1.45(L) 1.50 - 6.50 K/cumm Comment:Testing performed by : [address] [address] Imm gran abs 0.01 0.00 - 0.10 K/cumm [facility] Comment:Testing performed by : [address] [address] Lymphocyte abs 1.03 0.80 - 3.30 K/cumm [facility] Comment:Testing performed by : [address] [address] Monocyte abs 0.39 0.20 - 0.80 K/cumm [facility] Comment:Testing performed by : [address] [address] Eosinophil abs 0.24 0.00 - 0.50 K/cumm [facility] Comment:Testing performed by : [address] [address] Basophil abs 0.02 0.00 - 0.10 K/cumm [facility] Comment:Testing performed by : [address] [address] Neutrophil pct 46.3 % [facility] Comment: Interpretive Data Percent cell count reference ranges are not reported, since discordance with absolute values may lead to misinterpretation of CBC data. Current Interpretive Data was last revised on 2017. Testing performed by: [address] [address] Imm gran pct 0.3 % [facility] Comment: Interpretive Data Percent cell count reference ranges are not reported, since discordance with absolute values may lead to misinterpretation of CBC data. Current Interpretive Data was last revised on 2017. Testing performed by: [address] [address] Lymphocyte pct 32.8 % [facility] Comment: Interpretive Data Percent cell count reference ranges are not reported, since discordance with absolute values may lead to misinterpretation of CBC data. Current Interpretive Data was last revised on 2017. Testing performed by: [address] [address] Monocyte pct 12.4 % [facility] Comment: Interpretive Data Percent cell count reference ranges are not reported, since discordance with absolute values may lead to misinterpretation of CBC data. Current Interpretive Data was last revised on 2017. Testing performed by: [address] [address] Eosinophil pct 7.6 % [facility] Comment: Interpretive Data Percent cell count reference ranges are not reported, since discordance with absolute values may lead to misinterpretation of CBC data. Current Interpretive Data was last revised on 2017. Testing performed by: [address] [address] Basophil pct 0.6 % [facility] Comment: Interpretive Data Percent cell count reference ranges are not reported, since discordance with absolute values may lead to misinterpretation of CBC data. Current Interpretive Data was last revised on 2017. Testing performed by: [address] [address] Blood 12/01/2024 10:0 0 AM CDT 12/01/2024 10:04 AM CDT us Brandon Bradley MD LAB BLOOD ORDERABLES F inal Result [facility] [address] [facility] [place] [address] * (ABNORMAL) CBC with auto differential (12/01/2024 10:00 AM CDT) [facility] WBC 3.14(L) 3.80 - 9.90 K/cumm Comment:Testing performed by : [address] [address] Hgb 16.0 13.0 - 17.5 g/dL [facility] Comment:Testing performed by : [address], [address] Hct 49.2 38.9 - 50.3 % [facility] Comment:Testing performed by : [address] [address] Plt 235 150 - 400 K/cumm [facility] Comment:Testing performed by : [address], [address] MPV 8.6(L) 9.1 - 12.3 fL [facility] Comment:Testing performed by : [address], [address] RBC 5.54 4.30 - 5.80 M/cumm [facility] Comment:Testing performed by : [address], [address] MCV 88.8 81.3 - 96.4 fL [facility] Comment:Testing performed by : [address] [address] MCH 28.9 27.1 - 33.3 pg [facility] Comment:Testing performed by : [address], [address] MCHC 32.5 32.3 - 35.7 g/dL [facility] Comment:Testing performed by : [address], [address] RDW CV 12.5 11.1 - 14.9 % [facility] Comment:Testing performed by : [address], [address] RDW SD 41.1 35.7 - 48.1 fL [facility] Comment:Testing performed by : [address], [address] NRBC abs 0.00 0.00 - 0.01 K/cumm [facility] Comment:Testing performed by : [address] [address] Blood Venous blood specimen / Unknown 12/01/2024 10:00 AM CDT 12/01/2024 10:04 AM CDT us Brandon Bradley MD LAB BLOOD ORDERABLES F inal Result [facility] [address] [facility] [place] [address] * (ABNORMAL) Comprehensive metabolic panel (12/01/2024 10:00 AM CDT) Sodium 138 135 - 145 mmol/L Comment:Testing performed by : [address] [address] Potassium, pl 4.2 3.3 - 4.9 mmol/L [facility] Comment: Hemolyzed; Potassium value may be falsely elevated by as much as 1.0 mmol/L. Suggest redraw and reanalysis. Testing performed by: [address] [address] Chloride 104 97 - 110 mmol/L [facility] Comment:Testing performed by : [address] [address] CO2 23 22 - 32 mmol/L [facility] Comment:Testing performed by : [address] [address] Anion gap 11 2 - 15 mmol/L [facility] Comment:Testing performed by : [address] [address] BUN 7 6 - 25 mg/dL [facility] Comment:Testing performed by : [address] [address] Creatinine 0.99 0.80 - 1.30 mg/dL [facility] Comment:Testing performed by : [address] [address] Glucose 112 70 - 199 mg/dL [facility] [...] was last revised 2022. Testing performed by: [address] [address] Calcium 9.8 8.5 - 10.3 mg/dL [facility] Comment:Testing performed by : [address] [address] Bilirubin, total 0.5 0.1 - 1.2 mg/dL [facility] Comment:Testing performed by : [address] [address] Protein, pl 7.5 6.5 - 8.5 g/dL [facility] Comment:Testing performed by : [address] [address] Albumin 4.2 3.5 - 5.0 g/dL [facility] Comment:Testing performed by : [address] [address] Alk phos 97 40 - 130 Units/L [facility] Comment:Testing performed by : [address] [address] ALT 104(H) 7 - 55 Units/L [facility] Comment:Testing performed by : [address] [address] AST 53(H) 10 - 50 Units/L [facility] Comment: Hemolyzed; result may be falsely elevated Testing performed by: [address] [address] Blood 12/01/2024 10:0 0 AM CDT 12/01/2024 10:04 AM CDT us Brandon Bradley MD LAB BLOOD ORDERABLES F inal Result [facility] [address] [facility] Department of Laboratories [place], [place] [id number] * ECG 12 lead (12/01/2024 9:48 AM CDT) [facility] Ventricular Rate EKG/Min 83 BPM [facility] Atrial Rate 83 BPM [facility] [place]-Interval (MSEC) 166 ms [facility] QRS-Interval (MSEC) 78 ms [facility] QT-Interval (MSEC) 364 ms [facility] QTc 427 ms [facility] P Lillian 72 degrees [facility] R Lillian 16 degrees [facility] T Lillian 38 degrees [facility] Diagnosis Normal sinus rhythm Normal ECG When compared with ECG of 22-NOV-2024 01:56, No significant change was found Confirmed by MANUELA SORENSEN M.D. ([id number]) on 12/01/2024 12:15:27 PM [facility] 12/01/2024 9:48 AM CDT 12/01/2024 12:15 PM CDT us Brandon Bradley MD ECG ORDERABLES Final Result [facility] * eGFR (11/29/2024 5:50 [...] was last reviewed 2021. Testing performed by: [facility], [address] [place] [address]., [address] Blood 11/29/2024 5:50 PM CDT 11/29/2024 6:08 PM CDT us Aj Restrepo Jr., MD LAB BLOOD ORDERABLES Fi nal Result [facility] [address] [facility] Department of Laboratories [place], [place] [id number] * Differential, auto (11/29/2024 5:50 PM CDT) Neutrophil abs 1.65 1.50 - 6.50 K/cumm Comment:Testing performed by : [address] [address] Imm gran abs 0.01 0.00 - 0.10 K/cumm [facility] Comment:Testing performed by : [address] [address] Lymphocyte abs 1.43 0.80 - 3.30 K/cumm [facility] Comment:Testing performed by : [address] [address] Monocyte abs 0.45 0.20 - 0.80 K/cumm [facility] Comment:Testing performed by : [address] [address] Eosinophil abs 0.26 0.00 - 0.50 K/cumm [facility] Comment:Testing performed by : [address] [address] Basophil abs 0.01 0.00 - 0.10 K/cumm [facility] Comment:Testing performed by : [address] [address] Neutrophil pct 43.3 % [facility] Comment: Interpretive Data Percent cell count reference ranges are not reported, since discordance with absolute values may lead to misinterpretation of CBC data. Current Interpretive Data was last revised on 2017. Testing performed by: [address] [address] Imm gran pct 0.3 % [facility] Comment: Interpretive Data Percent cell count reference ranges are not reported, since discordance with absolute values may lead to misinterpretation of CBC data. Current Interpretive Data was last revised on 2017. Testing performed by: [address] [address] Lymphocyte pct 37.5 % [facility] Comment: Interpretive Data Percent cell count reference ranges are not reported, since discordance with absolute values may lead to misinterpretation of CBC data. Current Interpretive Data was last revised on 2017. Testing performed by: [address] [address] Monocyte pct 11.8 % [facility] Comment: Interpretive Data Percent cell count reference ranges are not reported, since discordance with absolute values may lead to misinterpretation of CBC data. Current Interpretive Data was last revised on 2017. Testing performed by: [address] [address] Eosinophil pct 6.8 % [facility] Comment: Interpretive Data Percent cell count reference ranges are not reported, since discordance with absolute values may lead to misinterpretation of CBC data. Current Interpretive Data was last revised on 2017. Testing performed by: [address] [address] Basophil pct 0.3 % [facility] Comment: Interpretive Data Percent cell count reference ranges are not reported, since discordance with absolute values may lead to misinterpretation of CBC data. Current Interpretive Data was last revised on 2017. Testing performed by: [address] [address] Blood 11/29/2024 5:50 PM CDT 11/29/2024 6:08 PM CDT us Aj Restrepo Jr., MD LAB BLOOD ORDERABLES nal Result [facility] [address] [facility] Department of Laboratories [place], [place] [id number] * (ABNORMAL) CBC with auto differential (11/29/2024 5:50 PM CDT) WBC 3.81 3.80 - 9.90 K/cumm Comment:Testing performed by : [address] [address] Hgb 15.3 13.0 - 17.5 g/dL [facility] Comment:Testing performed by : [address], [address] Hct 46.5 38.9 - 50.3 % [facility] Comment:Testing performed by : [address] [address] Plt 255 150 - 400 K/cumm [facility] Comment:Testing performed by : [address] [address] MPV 8.4(L) 9.1 - 12.3 fL [facility] Comment:Testing performed by : [address] [address] RBC 5.24 4.30 - 5.80 M/cumm [facility] Comment:Testing performed by : [address], [address] MCV 88.7 81.3 - 96.4 fL [facility] Comment:Testing performed by : [address], [address] MCH 29.2 27.1 - 33.3 pg [facility] Comment:Testing performed by : [address], [address] MCHC 32.9 32.3 - 35.7 g/dL [facility] Comment:Testing performed by : [address], [address] RDW CV 12.5 11.1 - 14.9 % [facility] Comment:Testing performed by : [address], [address] RDW SD 40.9 35.7 - 48.1 fL [facility] Comment:Testing performed by : [address] [address] NRBC abs 0.00 0.00 - 0.01 K/cumm [facility] Comment:Testing performed by : [address] [address] Blood 11/29/2024 5:50 PM CDT 11/29/2024 6:08 PM CDT Aj Restrepo Jr., MD LAB BLOOD ORDERABLES Fi nal Result [facility] [address] [facility] Department [place] [address] * (ABNORMAL) Comprehensive metabolic panel (11/29/2024 5:50 PM CDT) Sodium 138 135 - 145 mmol/L Comment:Testing performed by : [address] [address] Potassium, pl 4.2 3.3 - 4.9 mmol/L [facility] Comment: Hemolyzed; Potassium value may be falsely elevated by as much as 1.0 mmol/L. Suggest redraw and reanalysis. Testing performed by: [address] [address] Chloride 103 97 - 110 mmol/L [facility] Comment:Testing performed by : [address] [address] CO2 25 22 - 32 mmol/L [facility] Comment:Testing performed by : [address] [address] Anion gap 10 2 - 15 mmol/L [facility] Comment:Testing performed by : [address] [address] BUN 10 6 - 25 mg/dL [facility] Comment:Testing performed by : [address] [address] Creatinine 1.17 0.80 - 1.30 mg/dL [facility] Comment:Testing performed by : [address] [address] Glucose 103 70 - 199 mg/dL [facility] Comment: Interpretive Data Fasting glucose >/= [...] was last revised 2022. Testing performed by: [facility], [address] [place] [address]., [address] Calcium 10.1 8.5 - 10.3 mg/dL [facility] Comment:Testing performed by : [address] [address] Bilirubin, total 0.5 0.1 - 1.2 mg/dL [facility] Comment:Testing performed by : [address] [address] Protein, pl 7.3 6.5 - 8.5 g/dL [facility] Comment:Testing performed by : [address] [address] Albumin 4.1 3.5 - 5.0 g/dL [facility] Comment:Testing performed by : [address] [address] Alk phos 87 40 - 130 Units/L [facility] Comment:Testing performed by : [address] [address] ALT 90(H) 7 - 55 Units/L [facility] Comment:Testing performed by : [address] [address] AST 40 10 - 50 Units/L [facility] Comment: Hemolyzed; result may be falsely elevated Testing performed by: [address] [address] Blood 11/29/2024 5:50 PM CDT 11/29/2024 6:08 PM CDT us Aj Restrepo Jr., MD LAB BLOOD ORDERABLES Fi nal Result [facility] [address] [facility] Department of Laboratories [place], [place] [id number] * ECG 12 lead (11/22/2024 1:56 AM CDT) Ventricular Rate EKG/Min 90 BPM [facility] Atrial Rate 90 BPM [facility] NJ-Interval (MSEC) 170 ms [facility] QRS-Interval (MSEC) 82 ms [facility] QT-Interval (MSEC) 356 ms [facility] QTc 435 ms [facility] P Lillian 62 degrees [facility] R Lillian 5 degrees [facility] T Lillian 35 degrees [facility] Diagnosis Normal sinus rhythm Possible Left atrial enlargement Borderline ECG When compared with ECG of 19-NOV-2024 01:32, No significant change was found Confirmed by KOJO HARRIS M.D. ([id number]) on 11/26/2024 11:12:53 AM [facility] 11/22/2024 1:56 AM CDT 11/26/2024 11:12 AM CDT us Ligia Woods MD ECG ORDERABLES Final Re sult Performing Organization Address City/[facility]/ZIP Co de Phone Number [facility] * Troponin T high-sensitivity 2-hour (11/19/2024 4:34 AM CDT) Trop T hs 12 <=22 ng/L Comment: Interpretive Data For further hscTnT resources including the diagnostic algorithm and an aid in interpretation, copy and paste this link: https://nrl.testcatalog.org/show/hsTrop Current Interpretive Data last revised 2020. Testing performed by: [address] [address] Trop T hs delta -2 ng/L [facility] Comment:Testing performed by : [address] [address] Trop T hs interp Insignificant [facility] Comment:Testing performed by : [address] [address] Blood 11/19/2024 4:34 AM CDT 11/19/2024 4:56 AM CDT us Aj Restrepo Jr., MD LAB BLOOD ORDERABLES Fi nal Result Performing Organization Address City/[facility]/ZIP Co de Phone Number [facility] [address] [facility] Department [place] [address] * CT Chest Abdomen Pelvis [...] when laying down. Pt reports Hx of GA in October 2024. Pt also reports hiccups [...] Wiliam Roper M.D. AR: ROBY Report ID: [id number] Reading Location: [id number] Procedure Note Wiliam Roper MD - 11/19/2024 EXAM DESCRIPTION: CT CHEST ABDOMEN PELVIS WO CONTRAST REASON FOR STUDY: persistent hiccoughs for 4 days, now sob, throatpain and abd pain Pt c/o trouble breathing when laying down. Pt reports Hx of GA in October2024. Pt also reports hiccups x [...] Wiliam Roper M.D. AR: ROBY Report ID: [id number] Reading Location: [place] [address] Aj Restrepo Jr., MD IM CT PROCEDURES [...] when laying down. Pt reports Hx of GA in October 2024. Pt also reports hiccups [...] Wiliam Roper M.D. AR: ROBY Report ID: [id number] Reading Location: [place] [address] Procedure Note Wiliam Roper MD - 11/19/2024 EXAM DESCRIPTION: CT SOFT TISSUE NECK W CONTRAST REASON FOR STUDY: Soft tissue infection suspected, neck, xray done Pt c/o trouble breathing when laying down. Pt reports Hx of GA in October2024. Pt also reports hiccups x [...] Wiliam Roper M.D. AR: ROBY Report ID: [id number] Reading Location: [place] [address] us Aj Restrepo Jr., MD IMG CT [...] last revised on 2019. Testing performed by: [facility], [address] [place] [address]., [address] Blood 11/19/2024 2:08 AM CDT 11/19/2024 2:15 AM CDT Aj Restrepo Jr., MD LAB BLOOD ORDERABLES Fi nal Result [facility] [address] [facility] Department [place] [address] * XR Chest 1 Vw Portable (if patient condition/safety warrant portable) (11/19/2024 1:55 AM CDT) Anatomical Region Laterality Modality Body, Chest N/A Computed Radiogr aphy 11/19/2024 1:56 AM CDT Narrative 11/19/2024 1:59 AM CDT EXAM DESCRIPTION: XR CHEST 1 VIEW REASON FOR STUDY: Shortness of breath Pt c/o trouble breathing when laying down. Pt reports Hx of GA in October 2024. Pt also reports hiccups [...] Wiliam Roper M.D. AR: ROBY Report ID: [id number] Reading Location: [id number] Procedure Note Wiliam Roper MD - 11/19/2024 EXAM DESCRIPTION: XR CHEST 1 VIEW REASON FOR STUDY: Shortness of breath Pt c/o trouble breathing when laying down. Pt reports Hx of GA in October2024. Pt also reports hiccups x [...] Wiliam Roper M.D. AR: ROBY Report ID: [id number] Reading Location: [id number] Aj Restrepo Jr., MD IMG XR PROCEDURES Final Result * Troponin T high-sensitivity series (baseline, 2hr, 4hr, 6hr) (11/19/2024 1:42 AM CDT) Trop T hs 14 <=22 ng/L Comment: Interpretive Data For further hscTnT resources including the diagnostic algorithm and an aid in interpretation, copy and paste this link: https://nrl.testcatalog.org/show/hsTrop Current Interpretive Data last revised 2020. Testing performed by: [facility], [address] [place] [address]., [address] Blood 11/19/2024 1:42 AM CDT 11/19/2024 2:03 AM CDT Aj Restrepo Jr., MD LAB BLOOD ORDERABLES Fi nal Result [facility] [address] [facility] Department [place] [address] * eGFR (11/19/2024 1:42 AM [...] was last reviewed 2021. Testing performed by: [address] [address] Blood 11/19/2024 1:42 AM CDT 11/19/2024 2:03 AM CDT us Aj Restrepo Jr., MD LAB BLOOD ORDERABLES Fi nal Result [facility] [address] [facility] Department [place] [address] * Differential, auto (11/19/2024 1:42 AM CDT) Neutrophil abs 3.39 1.50 - 6.50 K/cumm Comment:Testing performed by : [address] [address] Imm gran abs 0.02 0.00 - 0.10 K/cumm [facility] Comment:Testing performed by : [address] [address] Lymphocyte abs 1.64 0.80 - 3.30 K/cumm [facility] Comment:Testing performed by : [address] [address] Monocyte abs 0.72 0.20 - 0.80 K/cumm [facility] Comment:Testing performed by : [address] [address] Eosinophil abs 0.23 0.00 - 0.50 K/cumm [facility] Comment:Testing performed by : [address] [address] Basophil abs 0.03 0.00 - 0.10 K/cumm [facility] Comment:Testing performed by : [address] [address] Neutrophil pct 56.3 % [facility] Comment: Interpretive Data Percent cell count reference ranges are not reported, since discordance with absolute values may lead to misinterpretation of CBC data. Current Interpretive Data was last revised on 2017. Testing performed by: [address] [address] Imm gran pct 0.3 % [facility] Comment: Interpretive Data Percent cell count reference ranges are not reported, since discordance with absolute values may lead to misinterpretation of CBC data. Current Interpretive Data was last revised on 2017. Testing performed by: [address] [address] Lymphocyte pct 27.2 % [facility] Comment: Interpretive Data Percent cell count reference ranges are not reported, since discordance with absolute values may lead to misinterpretation of CBC data. Current Interpretive Data was last revised on 2017. Testing performed by: [address] [address] Monocyte pct 11.9 % [facility] Comment: Interpretive Data Percent cell count reference ranges are not reported, since discordance with absolute values may lead to misinterpretation of CBC data. Current Interpretive Data was last revised on 2017. Testing performed by: [address] [address] Eosinophil pct 3.8 % [facility] Comment: Interpretive Data Percent cell count reference ranges are not reported, since discordance with absolute values may lead to misinterpretation of CBC data. Current Interpretive Data was last revised on 2017. Testing performed by: [address] [address] Basophil pct 0.5 % [facility] Comment: Interpretive Data Percent cell count reference ranges are not reported, since discordance with absolute values may lead to misinterpretation of CBC data. Current Interpretive Data was last revised on 2017. Testing performed by: [address] [address] Blood 11/19/2024 1:42 AM CDT 11/19/2024 2:03 AM CDT us Aj Restrepo Jr., MD LAB BLOOD ORDERABLES Fi nal Result [facility] [address] [facility] Department of Laboratories [place], [place] [id number] * Pro B-type natriuretic peptide (11/19/2024 1:42 [...] Last Revised Date: 2018. Testing performed by: [facility], [address] [place] [address]., [address] Blood 11/19/2024 1:42 AM CDT 11/19/2024 2:03 AM CDT us Aj Restrepo Jr., MD LAB BLOOD ORDERABLES Fi nal Result [facility] [address] [facility] Department [place] [address] * Urinalysis reflex to microscopic and culture Urine, clean voided (11/19/2024 1:42 AM CDT) Color, ur Straw Yellow Comment:Testing performed by : [address] [address] Clarity, ur Clear Clear [facility] Comment:Testing performed by : [address] [address] Specific gravity, ur 1.007 1.003 - 1.030 [facility] Comment:Testing performed by : [address] [address] pH, urine 6.5 [facility] Comment: Interpretive Data U rine pH is affected by diet, medications, systemic acid-base disturbances, and renal tubular function. pH may affect urinary stone formation. For example, urine pH below 6.0 may help reduce the tendency for calcium phosphate stones and pH greater than 6.0 may reduce the tendency for uric acid stone formation. Source: [facility] Current Interpretive Data was last revised on 2017 Testing performed by: [address] [address] Protein, ur ql Negative Negative [facility] Comment:Testing performed by : [address] [address] Glucose, ur ql Negative Negative [facility] Comment:Testing performed by : [address] [address] Ketones, ur Negative Negative [facility] Comment:Testing performed by : [address] [address] Bilirubin, ur Negative Negative [facility] Comment:Testing performed by : [address] [address] Blood, ur Negative Negative [facility] Comment:Testing performed by : [address] [address] Urobilinogen, ur <2.0 <2.0 mg/dL [facility] Comment:Testing performed by : [address] [address] Nitrite, ur Negative Negative [facility] Comment:Testing performed by : [address] [address] Leukocyte esterase, ur Negative Negative [facility] Comment:Testing performed by : [address] [address] UA reflex comment Reflex conditions for microscopic UA and culture not met. [facility] Comment:Testing performed by : [address] [address] Urine, clean voided 11/19/2024 1:42 AM CDT 11/19/2024 2:03 AM CDT us Aj Restrepo Jr., MD LAB MICROBIOLOGY - GENE RAL ORDERABLES Final Result [facility] [address] [facility] Department [place] [address] * (ABNORMAL) CBC with auto differential (11/19/2024 1:42 AM CDT) WBC 6.03 3.80 - 9.90 K/cumm Comment:Testing performed by : [address] [address] Hgb 15.5 13.0 - 17.5 g/dL [facility] Comment:Testing performed by : [address] [address] Hct 46.8 38.9 - 50.3 % [facility] Comment:Testing performed by : [address] [address] Plt 238 150 - 400 K/cumm [facility] Comment:Testing performed by : [address] [address] MPV 8.5(L) 9.1 - 12.3 fL [facility] Comment:Testing performed by : [address] [address] RBC 5.32 4.30 - 5.80 M/cumm [facility] Comment:Testing performed by : [address] [address] MCV 88.0 81.3 - 96.4 fL [facility] Comment:Testing performed by : [address] [address] MCH 29.1 27.1 - 33.3 pg [facility] Comment:Testing performed by : [address] [address] MCHC 33.1 32.3 - 35.7 g/dL [facility] Comment:Testing performed by : [address] [address] RDW CV 12.7 11.1 - 14.9 % [facility] Comment:Testing performed by : [address], [address] RDW SD 40.9 35.7 - 48.1 fL [facility] Comment:Testing performed by : [address] [address] NRBC abs 0.00 0.00 - 0.01 K/cumm [facility] Comment:Testing performed by : [address], [address] Blood 11/19/2024 1:42 AM CDT 11/19/2024 2:03 AM CDT us Aj Restrepo Jr., MD LAB BLOOD ORDERABLES Fi nal Result Performing Organization Address City/[facility] Co de Phone Number [address] [place] [address] * Magnesium (11/19/2024 1:42 AM CDT) Magnesium 2.4 1.4 - 2.5 mg/dL Comment:Testing performed by : [address] [address] Blood 11/19/2024 1:42 AM CDT 11/19/2024 2:03 AM CDT Aj Restrepo Jr., MD LAB BLOOD ORDERABLES Fi nal Result Performing Organization Address City/[facility] Co de Phone Number [id number] [place] [address] * (ABNORMAL) Comprehensive metabolic panel (11/19/2024 1:42 AM CDT) Sodium 138 135 - 145 mmol/L Comment:Testing performed by : [address] [address] Potassium, pl 3.8 3.3 - 4.9 mmol/L [facility] Comment: Hemolyzed; Potassium value may be falsely elevated by as much as 1.0 mmol/L. Suggest redraw and reanalysis. Testing performed by: [address], [place]., [address] Chloride 103 97 - 110 mmol/L [facility] Comment:Testing performed by : [address], [place]., [address] CO2 24 22 - 32 mmol/L [facility] Comment:Testing performed by : [address], [place]., [address] Anion gap 11 2 - 15 mmol/L [facility] Comment:Testing performed by : [address] [address] BUN 15 6 - 25 mg/dL [facility] Comment:Testing performed by : [address], [place]., [address] Creatinine 1.23 0.80 - 1.30 mg/dL [facility] Comment:Testing performed by : [address] [address] Glucose 99 70 - 199 mg/dL [facility] Comment: Interpretive Data Fasting glucose >/= [...] was last revised 2022. Testing performed by: [address] [address] Calcium 9.7 8.5 - 10.3 mg/dL [facility] Comment:Testing performed by : [address], [place] [address] Bilirubin, total 0.8 0.1 - 1.2 mg/dL [facility] Comment:Testing performed by : [address], [address] Protein, pl 7.3 6.5 - 8.5 g/dL [facility] Comment:Testing performed by : [address], [address] Albumin 4.2 3.5 - 5.0 g/dL [facility] Comment:Testing performed by : [address], [address] Alk phos 84 40 - 130 Units/L [facility] Comment:Testing performed by : [address], [address] ALT 90(H) 7 - 55 Units/L [facility] Comment:Testing performed by : [address], [address] AST 59(H) 10 - 50 Units/L [facility] Comment: Hemolyzed; result may be falsely elevated Testing performed by: [address] [address] Blood 11/19/2024 1:42 AM CDT 11/19/2024 2:03 AM CDT us Aj Restrepo Jr., MD LAB BLOOD ORDERABLES Fi nal Result Performing Organization Address City/State/[facility] Co de Phone Number [facility] [address] [facility] Department of Laboratories [place], [place] [id number] * ECG 12 lead (11/19/2024 1:32 AM CDT) Ventricular Rate EKG/Min 90 BPM [facility] Atrial Rate 90 BPM [facility] [place]-Interval (MSEC) 170 ms [facility] QRS-Interval (MSEC) 82 ms [facility] QT-Interval (MSEC) 352 ms [facility] QTc 430 ms [facility] P Lillian 64 degrees [facility] R Lillian 7 degrees [facility] T Lillian 33 degrees [facility] Diagnosis Normal sinus rhythm Possible Left atrial enlargement Borderline ECG When compared with ECG of 17-NOV-2024 18:51, Nonspecific T wave abnormality has replaced inverted T waves in Inferior leads Confirmed by KOJO HARRIS M.D. ([id number]) on 11/19/2024 7:38:22 PM [facility] [employer] 11/19/2024 1:32 AM CDT 11/19/2024 7:38 PM CDT us Aj Restrepo Jr., MD ECG ORDERABLES Final R esult [facility] [employer] [facility] * XR Chest PA Lateral 2 Views (11/17/2024 7:12 PM CDT) Anatomical Region Laterality Modality Body, Chest N/A Computed Radiogr aphy 11/17/2024 7:36 PM CDT Narrative 11/17/2024 7:42 PM CDT EXAM DESCRIPTION: XR CHEST PA LATERAL 2 VIEWS REASON FOR STUDY: chest pain Pt reports he was seen at [facility] urgent care yesterday for hiccups, pt was seen in this ED this AM for hiccups and was given Reglan 10 mg IV that stopped his hiccups, pt was prescribed Reglan 10 mg Q6H, he took a dose this AM but has not had any since. 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 Pt also endorsing chest pain at this [...] Jonel Ann M.D. MF: CHRISTOPHER Report ID: [id number] Reading Location: [id number] Procedure Note Jonel Ann, - 11/17/2024 EXAM DESCRIPTION: XR CHEST PA LATERAL 2 VIEWS REASON FOR STUDY: chest pain Pt reports he was seen at [facility] urgent care yesterday forhiccups, pt was seen in this ED this AM for hiccups and was given Reglan 10 mg IVthat stopped his hiccups, pt was prescribed Reglan 10 mg Q6H, he took a dosethis AM but has not had any since. 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 [...] Jonel Ann M.D. MF: CHRISTOPHER Report ID: [id number] Reading Location: [id number] Senia Myers Nba SENIOR WINDOWS SYSTEMS ADMINISTRATOR IMG XR PROCEDURES Final Result * ECG 12 lead (11/17/2024 6:51 PM CDT) Ventricular Rate EKG/Min 87 BPM [facility] Atrial Rate 87 BPM [facility] NJ-Interval (MSEC) 164 ms [facility] QRS-Interval (MSEC) 80 ms [facility] QT-Interval (MSEC) 358 ms [facility] QTc 430 ms [facility] P Lillian 59 degrees [facility] R Lillian 43 degrees [facility] T Lillian 1 degrees [facility] Diagnosis Normal sinus rhythm Normal ECG When compared with ECG of 16-NOV-2024 23:43, Inverted T waves have replaced nonspecific T wave abnormality in Inferior leads Confirmed by JONEL MORENO M.D. ([id number]) on 11/18/2024 12:51:29 PM [facility] 11/17/2024 6:51 PM CDT 11/18/2024 12:51 PM CDT us Senia Arango SENIOR WINDOWS SYSTEMS ADMINISTRATOR ECG ORDERABLES Final Re sult [facility] * Troponin T high-sensitivity series (baseline, 2hr, 4hr, 6hr) (11/17/2024 6:47 PM CDT) Trop T hs 19 <=22 ng/L Comment: Interpretive Data For further hscTnT resources including the diagnostic algorithm and an aid in interpretation, copy and paste this link: https://nrl.testcatalog.org/show/hsTrop Current Interpretive Data last revised 2020. Testing performed by: [facility], [address] [place] [address]., [id number] Blood 11/17/2024 6:47 PM CDT 11/17/2024 6:50 PM CDT us Senia Arango SENIOR WINDOWS SYSTEMS ADMINISTRATOR LAB BLOOD ORDERABLES Fin al Result [facility] Department [place] [address] * eGFR (11/17/2024 6:47 PM [...] was last reviewed 2021. Testing performed by: [address] [address] Blood 11/17/2024 6:47 PM CDT 11/17/2024 6:50 PM CDT us Senia Arango SENIOR WINDOWS SYSTEMS ADMINISTRATOR LAB BLOOD ORDERABLES Fin al Result [facility] [address] [facility] Department [place] [address] * Differential, auto (11/17/2024 6:47 PM CDT) Neutrophil abs 2.31 1.50 - 6.50 K/cumm Comment:Testing performed by : [address] [address] Imm gran abs 0.01 0.00 - 0.10 K/cumm [facility] Comment:Testing performed by : [address] [address] Lymphocyte abs 1.85 0.80 - 3.30 K/cumm [facility] Comment:Testing performed by : [address] [address] Monocyte abs 0.62 0.20 - 0.80 K/cumm [facility] Comment:Testing performed by : [address] [address] Eosinophil abs 0.27 0.00 - 0.50 K/cumm [facility] Comment:Testing performed by : [address] [address] Basophil abs 0.02 0.00 - 0.10 K/cumm [facility] Comment:Testing performed by : [address] [address] Neutrophil pct 45.5 % [facility] Comment: Interpretive Data Percent cell count reference ranges are not reported, since discordance with absolute values may lead to misinterpretation of CBC data. Current Interpretive Data was last revised on 2017. Testing performed by: [address] [address] Imm gran pct 0.2 % [facility] Comment: Interpretive Data Percent cell count reference ranges are not reported, since discordance with absolute values may lead to misinterpretation of CBC data. Current Interpretive Data was last revised on 2017. Testing performed by: [address] [address] Lymphocyte pct 36.4 % [facility] Comment: Interpretive Data Percent cell count reference ranges are not reported, since discordance with absolute values may lead to misinterpretation of CBC data. Current Interpretive Data was last revised on 2017. Testing performed by: [address] [address] Monocyte pct 12.2 % [facility] Comment: Interpretive Data Percent cell count reference ranges are not reported, since discordance with absolute values may lead to misinterpretation of CBC data. Current Interpretive Data was last revised on 2017. Testing performed by: [address] [address] Eosinophil pct 5.3 % [facility] Comment: Interpretive Data Percent cell count reference ranges are not reported, since discordance with absolute values may lead to misinterpretation of CBC data. Current Interpretive Data was last revised on 2017. Testing performed by: [address] [address] Basophil pct 0.4 % [facility] Comment: Interpretive Data Percent cell count reference ranges are not reported, since discordance with absolute values may lead to misinterpretation of CBC data. Current Interpretive Data was last revised on 2017. Testing performed by: [address] [address] Blood 11/17/2024 6:47 PM CDT 11/17/2024 6:50 PM CDT us Senia Arango NP LAB BLOOD ORDERABLES Fin al Result [facility] [address] Department [place] [address] * (ABNORMAL) CBC with auto differential (11/17/2024 6:47 PM CDT) [facility] WBC 5.08 3.80 - 9.90 K/cumm Comment:Testing performed by : [address] [address] Hgb 15.5 13.0 - 17.5 g/dL [facility] Comment:Testing performed by : [address] [address] Hct 47.3 38.9 - 50.3 % [facility] Comment:Testing performed by : [address] [address] Plt 245 150 - 400 K/cumm [facility] Comment:Testing performed by : [address] [address] MPV 8.5(L) 9.1 - 12.3 fL [facility] Comment:Testing performed by : [address] [address] RBC 5.33 4.30 - 5.80 M/cumm [facility] Comment:Testing performed by : [address] [address] MCV 88.7 81.3 - 96.4 fL [facility] Comment:Testing performed by : [address] [address] MCH 29.1 27.1 - 33.3 pg [facility] Comment:Testing performed by : [address] [address] MCHC 32.8 32.3 - 35.7 g/dL [facility] Comment:Testing performed by : [address] [address] RDW CV 12.8 11.1 - 14.9 % [facility] Comment:Testing performed by : [address] [address] RDW SD 41.0 35.7 - 48.1 fL [facility] Comment:Testing performed by : [address], [address] NRBC abs 0.00 0.00 - 0.01 K/cumm [facility] Comment:Testing performed by : [address] [address] Blood Venous blood specimen / Unknown 11/17/2024 6:47 PM CDT 11/17/2024 6:50 PM CDT Senia Arango SENIOR WINDOWS SYSTEMS ADMINISTRATOR LAB BLOOD ORDERABLES Fin al Result [facility] [address] [facility] Department [place] [address] * (ABNORMAL) Comprehensive metabolic panel (11/17/2024 6:47 PM CDT) Sodium 140 135 - 145 mmol/L Comment:Testing performed by : [address] [address] Potassium, pl 4.2 3.3 - 4.9 mmol/L [facility] Comment:Testing performed by : [address] [address] Chloride 105 97 - 110 mmol/L [facility] Comment:Testing performed by : [address] [address] CO2 26 22 - 32 mmol/L [facility] Comment:Testing performed by : [address] [address] Anion gap 9 2 - 15 mmol/L [facility] Comment:Testing performed by : [address] [address] BUN 10 6 - 25 mg/dL [facility] Comment:Testing performed by : [address] [address] Creatinine 1.12 0.80 - 1.30 mg/dL [facility] Comment:Testing performed by : [address] [address] Glucose 122 70 - 199 mg/dL [facility] [...] was last revised 2022. Testing performed by: [address] [address] Calcium 10.0 8.5 - 10.3 mg/dL [facility] Comment:Testing performed by : [address] [address] Bilirubin, total 0.5 0.1 - 1.2 mg/dL [facility] Comment:Testing performed by : [address] [address] Protein, pl 7.2 6.5 - 8.5 g/dL [facility] Comment:Testing performed by : [address] [address] Albumin 4.2 3.5 - 5.0 g/dL [facility] Comment:Testing performed by : [address] [address] Alk phos 84 40 - 130 Units/L [facility] Comment:Testing performed by : [address] [address] ALT 88(H) 7 - 55 Units/L [facility] Comment:Testing performed by : [address] [address] AST 55(H) 10 - 50 Units/L [facility] Comment:Testing performed by : [address] [address] Blood 11/17/2024 6:47 PM CDT 11/17/2024 6:50 PM CDT us Senia Arango NP LAB BLOOD ORDERABLES Fin al Result [facility] [address] [facility] Department [place] [address] * ECG 12 lead (11/16/2024 11:43 PM CDT) Ventricular Rate EKG/Min 84 BPM [facility] Atrial Rate 84 BPM [facility] NJ-Interval (MSEC) 180 ms [facility] QRS-Interval (MSEC) 80 ms [facility] QT-Interval (MSEC) 370 ms [facility] QTc 437 ms [facility] P Lillian 67 degrees [facility] R Lillian 4 degrees [facility] T Lillian 27 degrees [facility] Diagnosis Normal sinus rhythm Possible Left atrial enlargement Borderline ECG When compared with ECG of 10-OCT-2024 10:02, No significant change was found Confirmed by MIKIE CHO M.D. ([id number]) on 11/17/2024 3:22:09 PM [facility] 11/16/2024 11:4 3 PM CDT 11/17/2024 3:22 PM CDT Xiomara Chavis SENIOR WINDOWS SYSTEMS ADMINISTRATOR ECG ORDERABLES Final Resu lt [facility] from Last 3 Mon[place] [address] [employer] [facility] [place] [address] [employer] [facility] MEDICARE ADVANTAGE Advance Directives For more information, please contact: [phone] * Full Code (Latest Code Status on File) Date Activated Date Inactivated Comments 10/10/2024 1:20 PM 10/11/2024 6:54 PM * Full Code Date Activated Date Inactivated Comments 10/10/2024 12:44 PM 10/10/2024 1:20 PM Care Teams Decontamination Worker Relationship Specialty Start Date End Date Momo Hameed MD [address] [address] PCP - General Family Medicine 12/01/24
--- OUTSIDE RECORDS SUMMARY | 2025-01-15 14:17 | XMS_ITS | Clinical Summary ---
Author Organization [facility] Address [address] [place] [address] Care Team Providers Care Glass Cutting Machine Feeder Name Role Phone Joe Hunter MD Unavailable [...] - 12/24/2024 3:22 PM CDT Hospital Encounter [facility] [address] [place] [address] Jenniffer Forrester, WINE MERCHANT Sore Throat Discharge Disposition: Home or Self Care (Routine Discharge) 12/24/2024 Travel 12/14/2024 7:19 PM CDT - 12/14/2024 10:01 PM CDT Emergency [facility] [place] [address] Everette Cardenas MD,PHD Hiccups Discharge Disposition: Home or Self Care (Routine Discharge) 12/14/2024 Travel 12/11/2024 6:02 PM CDT - 12/11/2024 6:29 PM CDT Hospital Encounter [facility] [address] [place] [address] Marce Carreno PA Hiccups Discharge Disposition: Home or Self Care (Routine Discharge) 12/11/2024 Travel 11/25/2024 6:09 PM CDT - 11/25/2024 6:41 PM CDT Hospital Encounter [facility] [address] [place] [address] Stoney Peng MD Med Refills Discharge Disposition: Home or Self Care (Routine Discharge) 11/25/2024 Travel 11/22/2024 3:39 AM CDT - 11/22/2024 6:48 AM CDT Emergency [facility] [place] [address] Everette Cardenas MD,PHD Hiccups Discharge Disposition: Home or Self Care (Routine Discharge) 11/22/2024 Travel 11/18/2024 10:10 PM CDT - 11/18/2024 10:20 PM CDT Emergency [facility] [place] [address] Inga Graham PA Hiccups Discharge Disposition: Home or Self Care (Routine Discharge) 11/17/2024 10:37 PM CDT - 11/18/2024 1:13 AM CDT Emergency [facility] [place] [address] Zainab Jaramillo FNP Hiccups Discharge Disposition: Home or Self Care (Routine Discharge) 11/17/2024 Travel 11/16/2024 6:47 PM CDT - 11/16/2024 7:11 PM CDT Hospital Encounter [facility] [address] [place] [address] Krystal Martinez DO Hiccups Discharge Disposition: Home or Self Care (Routine Discharge) 11/16/2024 Travel 11/12/2024 6:01 PM CDT - 11/12/2024 6:30 PM CDT Hospital Encounter [facility] [address] [facility] [place] [address] Krystal Martinez DO Rash; Dental Pain (/) Discharge Disposition: Home or Self Care (Routine Discharge) 11/12/2024 Travel 11/02/2024 2:18 PM CDT - 11/02/2024 2:47 PM CDT Hospital Encounter [facility] [address] [place] [address] Krystal Martinez DO Dental Problem Discharge Disposition: [...] Sex Assigned at Male 07/09/2024 6:42 PM 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 Legal Sex Male 10:18 AM 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 CREWMAN Gender Identity Not on file Sexual Orientation [...] this topic Medical Devices Implanted Type Area Tire Changer Device Identifier Shelf Expiration Date Model / Serial / Lot Locking Third Tubular Plate-7hole Implanted:Qty: 1 on 02/07/2020 by Tyler Edward MD at [facility] Plate Right: Ankle [employer] AR-8943T-0 7 / 3..5 Cortical Screw-20mm Implanted:Qty: 1 on 02/07/2020 by Tyler Edward MD at [facility] Screw Right: Ankle [employer] AR-8835-20 / / 3.5 Cortical Screw-14mm Implanted:Qty: 3 on 02/07/2020 by Tyler Edward MD at [facility] Screw Right: Ankle [employer] AR-8835-14 / / 4.0 Cancellous 14mm Implanted:Qty: 1 on 02/07/2020 [facility] Scre[facility] Right: Ankle [employer] AR-8840-14 / / 3.5 Cortical Screw-16mm Implanted:Qty: 1 on 02/07/2020 by Tyler Edward MD at [facility] Screw Right: Ankle [employer] AR-8835-16 / / System Fixation Tightrope Xp Stainless Steel Syndesmosis Rep - [id number] Implanted:Qty: 1 on 02/07/2020 by Tyler Edward MD at [facility] Right: Ankle [employer] [id number] 09/10/2024 AR-[id number] / / [id number] Procedures Procedure Name Priority Date/Time Associated Diagnosis [...] 12/24/2024 2:53 PM CDT us Jenniffer Forrester WINE MERCHANT MICROBIOLOGY - GENERAL O RDERABLES Final Result [facility] [address] [place] [address], [place] * XR CHEST PA+LAT (11/22/2024 5:09 AM CDT) Anatomical Region Laterality Modality Chest Radiographic Ashleigh ging 11/22/2024 5:09 AM CDT Impressions 11/22/2024 5:11 AM CDT IMPRESSION: No acute findings. Referred By: Interpreted By: Chris Charlton DO, 11/22/2024 5:09 AM Narrative 11/22/2024 5:11 AM CDT [address] [address] EXAMINATION: X-ray chest HISTORY: Unrelenting hiccups. COMPARISON: Chest x-ray 11/17/2024. TECHNIQUE: PA and lateral view chest. FINDINGS: The heart appears normally sized. No mediastinal shift. No visible pneumonia, pleural effusion, or pneumothorax. There is atherosclerotic calcification of the aorta. No visible acute findings. Procedure Note Chris Charlton DO - 11/22/2024 [facility] [address] [place], [place] [address] EXAMINATION: X-ray chest HISTORY: Unrelenting hiccups. COMPARISON: [...] No acute findings. Referred By: Interpreted By: oTy Smith MD, 11/17/2024 11:12 PM Narrative 11/17/2024 11:13 PM CDT [place] [address] Examination: XR CHEST PORTABLE Exam time: 11/17/2024 [...] Procedure Note Toy Smith MD - 11/17/[address] [address] Examination: XR CHEST PORTABLE Exam time: 11/17/2024 [...] MD, 11/17/2024 11:12 PM us Zainab Jaramillo WINE MERCHANT GENERAL IMAGING Final Resul t * ECG 12 lead (11/17/2024 10:40 PM CDT) 11/17/2024 10:4 0 PM CDT Narrative [facility] RAD - 11/18/2024 3:25 PM CDT [place] Test Date: 2024-11-17 Pat Name: DOROTHY FORMAN Department: 41 Room: [facility] Gender: Male Parts Room Associate: : 1980 Requested By: ZAINAB JARAMILLO Order Number: [id number] Reading MD: Sarah Odonnell Measurements Intervals [place] Rate: 75 P: 44 MN: 160 QRS: 10 QRSD: 84 T: 31 QT: 371 QTc: 416 Interpretive Statements SINUS RHYTHM Compared to ECG 03/15/2021 17:53:08 No significant changes Procedure Note Sarah Odonnell MD - 11/18/[address] [place] Test Date: 2024-11-17 Pat Name: DOROTHY FORMAN Department: 41 Room: [facility] Gender: Male Parts Room Associate: : 1980 Requested By: ZAINAB JARAMILLO Order Number: [id number] [place] MD: Sarah Odonnell Measurements Intervals [place] Rate: 75 P: 44 MN: 160 QRS: 10 QRSD: 84 T: 31 QT: 371 QTc: 416 Interpretive Statements SINUS RHYTHM Compared to ECG 03/15/2021 17:53:08 No significant changes us Zainab Jaramillo WINE MERCHANT ECG ORDERABLES Final Resul t [facility] (JOSSELINE) RAD * (ABNORMAL) COMPREHENSIVE METABOLIC PANEL (11/17/2024 10:27 PM CDT) GLUCOSE 108(H) 70 - 99 MG/DL 11/17/2024 11:39 PM CDT [facility] BUN 11 7 - 18 MG/DL 11/17/2024 11:39 PM CDT [facility] CREATININE S/P/B 1.06 0.7 - 1.3 MG/DL 11/17/2024 11:39 PM CDT [facility] SODIUM S/P/B 134(L) 136 - 145 MMOL/L 11/17/2024 11:39 PM CDT [facility] POTASSIUM S/P/B 5.1 3.5 - 5.1 MMOL/L 11/17/2024 11:39 PM CDT [facility] Comment:SLIGHT HEMOLYSIS, RE SULT MAY BE AFFECTED. CHLORIDE S/P/B 108 97 - 115 MMOL/L 11/17/2024 11:39 PM CDT [facility] CO2 21.7 21 - 32 MMOL/L 11/17/2024 11:39 PM CDT [facility] CALCIUM S/P/B 9.4 8.5 - 10.1 MG/DL 11/17/2024 11:39 PM CDT [facility] BILIRUBIN TOTAL S/P/B 0.7 0.2 - 1.2 MG/DL 11/17/2024 11:39 PM T [facility] Comment: THIS ASSAY IS NOT RECOMMENDED FOR PATIENTS UNDERGOING TREATMENT WITH ELTROMBOPAG DUE TO THE POTENTIAL FOR FALSELY ELEVATED RESULTS. TOTAL PROTEIN S/P/B 7.5 6.4 - 8.2 G/DL 11/17/2024 11:39 PM [facility] ALBUMIN S/P/B 3.7 3.4 - 5.0 G/DL 11/17/2024 11:39 PM [facility] AST 62(H) 15 - 37 U/L 11/17/2024 11:39 PM [facility] Comment:SLIGHT HEMOLYSIS, RE SULT MAY BE AFFECTED. ALT 90(H) 16 - 60 U/L 11/17/2024 11:39 PM [facility] ALKALINE PHOSPHATASE S/P/B 82 50 - 136 U/L 11/17/2024 11:39 PM [facility] ANION GAP 4.3 2 - 10 MMOL/L 11/17/2024 11:39 PM [facility] BUN CREATININE RATIO 10.4 6 - 26 11/17/2024 11:39 PM [facility] A/G RATIO 1.0 1.0 - 2.0 RATIO 11/17/2024 11:39 PM [facility] GFR ESTIMATE 90(L) >90 ML/MIN/1.7 3 M2 11/17/2024 11:39 PM [facility] Comment: NOTE: eGFR is not calculated for patients <18 years of age or gender unknown. This is an estimated GFR calculation using the new CKD EPI creatinine equation without race and so does not require a correction factor for race. This estimated GFR should not be used for calculating drug doses. 11/17/2024 10:2 7 PM CDT Zainab Jaramillo [employer] [facility] Final Resul t [facility] [address] [place] [address], [place] [phone] * (ABNORMAL) CBC W/DIFF AUTOMATED (11/17/2024 10:27 PM CDT) WBC 4.75 4.5 - 11.0 x10'3/uL 11/17/2024 11:16 PM CDT [facility] RBC 5.49 4.70 - 6.10 x10'6/uL 11/17/2024 11:16 PM CDT [facility] HGB 16.1 14.0 - 18.0 G/DL 11/17/2024 11:16 PM CDT [facility] HCT 49.0 43.0 - 54.0 % 11/17/2024 11:16 PM CDT [facility] MCV 89.3 80.0 - 94.0 FL 11/17/2024 11:16 PM CDT [facility] MCH 29.3 27.0 - 31.0 PG 11/17/2024 11:16 PM CDT [facility] MCHC 32.9 32.0 - 36.0 G/DL 11/17/2024 11:16 PM CDT [facility] RDW 12.7 11.5 - 14.5 % 11/17/2024 11:16 PM CDT [facility] PLT 257 130 - 400 x10'3/uL 11/17/2024 11:16 PM CDT [facility] MPV 8.7(L) 9.3 - 12.2 FL 11/17/2024 11:16 PM CDT [facility] DIFFERENTIAL TYPE AUTOMATED DIFFERENTIAL 11/17/2024 11:16 PM CDT [facility] NEUTROPHILS % 52.7 % 11/17/2024 11:16 PM CDT [facility] LYMPHOCYTES % 32.6 % 11/17/2024 11:16 PM CDT [facility] MONOCYTES % 9.3 % 11/17/2024 11:16 PM CDT [facility] EOSINOPHILS 4.6 % 11/17/2024 11:16 PM CDT [facility] BASOPHILS 0.6 % 11/17/2024 11:16 PM CDT [facility] IMMATURE GRANS % 0.2 % 11/18/19 11:16 PM CDT [facility] ABS. NEUTROPHILS 2.50 1.80 - 7.70 x10'3/uL 11/17/2024 11:16 PM CDT [facility] ABS. LYMPHOCYTES 1.55 1.00 - 4.80 x10'3/uL 11/17/2024 11:16 PM CDT [facility] ABS. MONOCYTES 0.44 0.30 - 0.82 x10'3/uL 11/17/2024 11:16 PM CDT [facility] ABS. EOSINOPHILS 0.22 0.04 - 0.54 x10'3/uL 11/17/2024 11:16 PM CDT [facility] ABS. BASOPHILS 0.03 0.01 - 0.08 x10'3/uL 11/17/2024 11:16 PM CDT [facility] ABS. IMMATURE GRANULOCYTES 0.01 0.00 - 0.49 x10'3/uL 11/17/2024 11:16 PM CDT [facility] 11/17/2024 10:2 7 PM CDT Zainab Jaramillo [facility] Final Resul t [facility] [address] [place] [address], [place] [phone] * TROPONIN, QUANT (11/17/2024 10:27 PM CDT) TROPONIN I HIGH SENSITIVITY 22 <79 ng/L 11/17/2024 11:39 PM CDT [facility] Comment: HIGH DOSES OF BIOTIN, TROPONIN-SPECIFIC AUTOANTIBODIES, AND ANTIBODY THERAPY CONTAINING HAMA MAY INTERFERE WITH THIS TEST RESULT. CORRELATION TO CLINICAL HISTORY AND PRESENTATION RECOMMENDED. 11/17/2024 10:2 7 PM CDT Zainab Jaramillo [facility] Final Resul t Performing Organization Address City/[facility]/ZIP Co de Phone Number [facility] [address] [place] [address], [place] [phone] from Last 3 Months Insurance MEDICAID MEDICAID Member Subscriber Plan / Payer (Ef fective 2022-Present) Name:Dorothy Forman Relation to Subscriber:Self Name:Dorothy Forman Payer ID:Not on file Group ID:Not on file Type:Not on file Address: [place] [id number] DEPT OF [address] Advance Directives Documents on File Type Date Recorded 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
== END 2025-01-15 14:19 | disposition left against medical advice (07) ==
LOC: ANHED 14:11
PROVIDERS: PCP Emergency Medicine
DX: R10.10 Upper abdominal pain, unspecified (principal)
CPT/HCPCS: 99199